=== PATIENT | male | born 1950 | race Caucasian/White ===

== ENCOUNTER 2016-07-21 11:09 | Inpatient (IN) | payer OTHER, MEDICARE ==
[~2016-07-21] VITALS: Ht 182.9 cm; Wt 123.8 kg
[~2016-07-21 11:09] MED LIST: HYDR-3583 PO; LISI-515 PO; LOVA40TA PO; MORP100T40 PO; PARO40TA2 PO
[2016-07-27] MEDS ORDERED: SODIUM CHLORID 0.9% 500 ML IV PRN (07:15)
[2016-07-27] MEDS ORDERED: METOPROLOL TARTRATE 25 MG TAB PO PRN (07:15)
[2016-07-27] MEDS ORDERED: CHLORHEXIDINE GLUCONATE 2 % 1 PACK (2 CLOTHS) TOPICAL PRN (07:15)
[2016-07-27] MEDS ORDERED: POVIDONE IODINE 5% (ANTISEPSIS KIT) 4 APPLICATIONS EACH NARE PRN (07:15)
[2016-07-27] MEDS ORDERED: INSULIN HUMAN REGULAR 1,000 UNITS/10 ML VIAL SQ PRN (07:15)
[2016-07-27] MEDS: LACTATED RINGER'S 1000 ML INJ 1,000 ML IV SCH (07:15)
[2016-07-27] MEDS ORDERED: SODIUM CHLOR 0.9% 250 ML INJ 250 ML ONE (07:30)
[2016-07-27] MEDS ORDERED: VANCOMYCIN HCL 1000 MG VIAL ONE (07:30)
[2016-07-27 07:38] VITALS: BP 159/71; PULSE 80; RESP 20; TEMP 98.5; O2SAT 94
[2016-07-27] MEDS ORDERED: fentaNYL CITRATE 250 MCG/5 ML AMP ONE (08:26)
[2016-07-27] MEDS ORDERED: HYDROmorphone HCL PF 2 MG/ML VIAL ONE (08:26)
[2016-07-27] MEDS ORDERED: BUPIVACAINE/EPINEPHRINE 0.5% PF 30 ML VIAL ONE (08:43)
[2016-07-27] MEDS ORDERED: THROMBIN (TOPICAL) 5,000 UNIT VIAL ONE (08:44)
[2016-07-27] MEDS ORDERED: GELFOAM SIZE 100 ONE (08:45)
[2016-07-27] MEDS: VANCOMYCIN HCL 1000 MG VIAL ONE ×2 (10:12→13:19)
[2016-07-27] MEDS ORDERED: LACTATED RINGER'S 1000 ML INJ 1,000 ML IV ONE (12:00)
[2016-07-27] MEDS ORDERED: PROPOFOL 200 MG/20 ML AMP IV ONE (12:00)
[2016-07-27] MEDS ORDERED: PHENYLEPH/NS 1000 MCG/10 ML SYR IV ONE (12:00)
[2016-07-27] MEDS ORDERED: SODIUM CHLOR 0.9% 250 ML INJ 250 ML IV ONE (12:00)
[2016-07-27] MEDS ORDERED: NORMOSOL R INJ 1,000 ML IV ONE (12:00)
[2016-07-27] MEDS ORDERED: PHENYLEPHRINE HCL 10 MG/ML VIAL IV ONE (12:00)
[2016-07-27] MEDS ORDERED: SODIUM CHLORID 0.9% 500 ML INJ 500 ML IV ONE (12:00)
[2016-07-27] MEDS ORDERED: ONDANSETRON HCL 4 MG/2 ML VIAL IV PUSH ONE (12:00)
[2016-07-27] MEDS ORDERED: KETOROLAC TROMETHAMINE 30 MG/ML (IVP) VIAL IV PUSH ONE (12:00)
--- NOTE | 2016-07-27 13:56 | PD.OP ---
DO Sunday Simeon MD Operative Report Date of Surgery: Jul 27, 2016 Preoperative Diagnosis: L3-4 and L4-5 degenerative disc disease with facet arthropathy and associated spinal listhesis/instability and scoliosis with spinal stenosis; intractable low back pain with neurogenic claudication. Postoperative Diagnosis: Same Procedure: Lumbar L3-4 and L4-5 transforaminal interbody fusion; L3, L4 and L5 decompressive laminectomies; L3-5 pedicle screw fixation; L3-4 and L4-5 interbody cage placement; microsurgical technique Anesthesia: Gen. endotracheal by Evin Cabral Surgeon: Lul Cuenca M.D. Barrel Handler(s): Sera Cooper Operation and Findings: Following initiation of general endotracheal anesthesia, the patient had a Montilla catheter placed along with sequential compression devices. A gram of vancomycin was administered intravenously and he was turned in a prone position on a Dominguez frame, on a Iván table, and all pressure points adequately padded. The lumbosacral region was then prepped with Chloraprep and sterilely draped with Ioban along the usual sterile draping. A midline skin incision was then made extending from the L3-L5 levels after infiltrating the skin with 0.5% Marcaine with epinephrine solution extending down through the fascia. The muscle fibers were split using avascular fatty plane and detached from the underlying facets, transverse process and lateral portion of lamina on the left side and a self-retaining retractor used for exposure. Intraoperative fluoroscopy was also used for level of confirmation along with microscope magnification for further dissection. There was significant facet and ligamentum flavum hypertrophy noted at the L3-4 and L4-5 levels. Left L3-4 and L4-5 facets resected with a drill bit along with the lamina and there was severe foraminal and spinal stenosis from hypertrophied ligamentum flavum and facet which were decompressed bilaterally through the unilateral approach. There was significant disc height collapse along with disc protrusion also leading to the foraminal stenosis along with associated spondylolisthesis and facet laxity. Epidural hemostasis was achieved with bipolar cautery and Gelfoam with thrombin. Subsequently entered into the disc space at the L3-4 and L4-5 levels with a #15 blade and chante were used for discectomy. I then placed PEEK cages packed with local autograft bone and more local autograft bone was packed adjacent to the cage in interspace for added interbody fusion at both levels. With placement of the cages, I was able to distract the interspace and opened up the foramen further bilaterally. Subsequently in order to facilitate the fusion and provide stabilization, pedicle screw fixation was undertaken using Tabor spine screws with entry points at the left L3-4-5 levels at the junction of the transverse process and facet. Subsequently using AP and lateral fluoroscopy tap and screw placement. The screws were then connected with a justina and locked in place with caps. The construct appeared very secure at this point. The area was then copiously irrigated with Vancomycin solution and powder. The retractors were removed and the bipolar cautery used for hemostasis. The muscle fascia was then approximated using 2-0 Vicryl interrupted stitches and then 3-0 Vicryl subcuticular stitches also placed in interrupted fashion. The final skin closure was completed with ander. A sterile dressing was then applied. The patient then turned in supine position, extubated and taken to recovery room. There were no intraoperative complications. All sponge and needle counts were correct at the end of procedure. Estimated blood loss about 300 ml. Lul Cuenca MD Jul 27, 2016 13:56
[2016-07-27] MEDS ORDERED: MAGNESIUM SULFATE INJ 2 GM in SODIUM CHLORIDE 0.9% INJ 100 ML IV PRN (14:00)
[2016-07-27] MEDS ORDERED: ACETAMINOPHEN 325 MG TAB PO PRN (14:00)
[2016-07-27] MEDS ORDERED: RESP: ALBUTEROL 2.5 MG/3 ML NEB (PRN) NEB (14:00)
[2016-07-27] MEDS ORDERED: diphenhydrAMINE HCL 25 MG CAP PO PRN (14:00)
[2016-07-27] MEDS ORDERED: POTASSIUM CHLOR 20 MEQ PREMIX 100 ML IV PRN (14:00)
[2016-07-27] MEDS ORDERED: MAGNESIUM HYDROXIDE SUSP 30 ML CUP PO PRN (14:00)
[2016-07-27] MEDS ORDERED: SODIUM CHLORIDE 0.9% FLUSH 10 ML FLUSH IV FLUSH PRN (14:00)
[2016-07-27] MEDS ORDERED: MENTHOL LOZENGE BUCCAL PRN (14:00)
[2016-07-27] MEDS ORDERED: ONDANSETRON HCL 4 MG/2 ML VIAL IV PRN (14:00)
[2016-07-27] MEDS ORDERED: CALCIUM GLUCONATE INJ 1 GM in SODIUM CHLORIDE 0.9% INJ 100 ML IV PRN (14:00)
[2016-07-27] MEDS ORDERED: NALOXONE HCL 0.4 MG/ML AMP IV PRN (14:00)
[2016-07-27] MEDS ORDERED: PROCHLORPERAZINE INJ 10 MG/2 ML VIAL IV PUSH PRN (14:00)
[2016-07-27] MEDS ORDERED: cloNIDine HCL 0.1 MG TAB PO PRN (14:00)
[2016-07-27] MEDS ORDERED: ALUMINUM/MAGNESIUM/SIMETH 30 ML CUP PO PRN (14:00)
[2016-07-27] MEDS ORDERED: *morphine SULFATE 8 MG/ML PERIprocedure ONLY ONE (14:27)
[2016-07-27 14:32] LABS: AUTOMATED NEUTROPHIL # 12.5 TH/MM3 (1.8-7.7); BASOPHIL % 0.2 % (0.0-2.0); EOSINOPHIL # 0.1 TH/MM3 (0-0.4); EOSINOPHIL % 0.4 % (0.0-4.0); HEMATOCRIT 32.6 % (39.0-51.0); HEMO FLAGS DIFF FINAL; LYMPH % 6.5 % (9.0-44.0); LYMPHOCYTE # 0.9 TH/MM3 (1.0-4.8); MEAN CELL VOLUME 84.7 FL (80.0-100.0); MEAN CORPUSCULAR HEMOGLOBIN 27.4 PG (27.0-34.0); MEAN CORPUSCULAR HGB CONC 32.4 % (32.0-36.0); MONO % 4.9 % (0.0-8.0); PLATELET COUNT 198 TH/MM3 (150-450); RED BLOOD COUNT 3.84 MIL/MM3 (4.50-5.90); RED CELL DISTRIBUTION WIDTH 14.3 % (11.6-17.2); WHITE BLOOD COUNT 14.2 TH/MM3 (4.0-11.0)
[2016-07-27 14:53] LABS: BICARBONATE 26.3 MEQ/L (21.0-32.0); POTASSIUM 4.8 MEQ/L (3.5-5.1)
[2016-07-27] MEDS ORDERED: NS + KCL 20 MEQ INJ 1,000 ML IV SCH (15:00)
[2016-07-27] MEDS: HYDROmorphone HCL PCA 6 MG/30 ML IV SCH ×3 (15:56→23:19)
[2016-07-27 16:34] LABS: CALCIUM-PROTEIN CORRECTED 8.9 MG/DL (8.5-10.1)
--- NOTE | 2016-07-27 17:56 | RADRPT ---
EXAM DATE/TIME: 07/27/2016 09:02 [facility] COMPARISON: No previous studies available for comparison. INDICATIONS : Lumbar spine L3-5 TLIF. OR. MEDICAL HISTORY : Hypertension. SURGICAL HISTORY : None. ENCOUNTER: Initial ACUITY: 1 day PAIN SCORE: Non-responsive. LOCATION: Lumbar L3-5 FINDINGS: The patient is status post transpedicular fixation from L3 to L5 on the left. Allograft is noted. CONCLUSION: Status post transpedicular fixation L3 to L5. Yan Perez MD FACR on July 27, 2016 at 17:52 Board Certified Radiologist. This report was verified electronically.
[2016-07-27] MEDS: MORPHINE SULFATE 100 MG CONTROLLED RELEASE TAB PO SCH (18:49)
[2016-07-27 18:58] VITALS: BP 152/67; PULSE 92; RESP 18; TEMP 99; O2SAT 91
[2016-07-27 20:00] VITALS: BP 183/74; PULSE 93; RESP 20; TEMP 95; O2SAT 95
[2016-07-27] MEDS: DOCUSATE SODIUM 100 MG CAP PO SCH (20:33)
[2016-07-27] MEDS: PRAVASTATIN SOD 40 MG TAB PO SCH (20:33)
[2016-07-27] MEDS: ACETAMINOPHEN/HYDROcodone 325 MG/10 MG TAB PO PRN (20:34)
[2016-07-27] MEDS: ZOLPIDEM TARTRATE 5 MG TAB PO PRN (22:10)
[2016-07-27] MEDS: SODIUM CHLORIDE 0.9% FLUSH 10 ML FLUSH IV FLUSH SCH (22:15)
[2016-07-28] VITALS: BP 144/59; PULSE 99; RESP 18; TEMP 99.8; O2SAT 92
[2016-07-28] MEDS: ACETAMINOPHEN/HYDROcodone 325 MG/10 MG TAB PO PRN ×6 (00:50→21:44)
[2016-07-28 04:00] VITALS: BP 144/72; PULSE 94; RESP 20; TEMP 101.1; O2SAT 94
[2016-07-28] MEDS: LACTATED RINGER'S 1000 ML INJ 1,000 ML IV SCH (07:15)
[2016-07-28 08:00] VITALS: BP 140/78; PULSE 85; RESP 18; TEMP 99.7; O2SAT 90
[2016-07-28] MEDS: PARoxetine HCL 20 MG TAB PO SCH (09:34)
[2016-07-28] MEDS: DOCUSATE SODIUM 100 MG CAP PO SCH ×2 (09:35→21:44)
[2016-07-28] MEDS: MORPHINE SULFATE 100 MG CONTROLLED RELEASE TAB PO SCH ×3 (09:35→17:38)
[2016-07-28] MEDS: LISINOPRIL 20 MG TAB PO SCH (09:36)
[2016-07-28] MEDS: HYDROmorphone HCL PCA 6 MG/30 ML IV SCH ×4 (11:34→23:05)
[2016-07-28] MEDS: PANTOPRAZOLE SODIUM 40 MG VIAL IVP SCH (11:37)
[2016-07-28] MEDS: POLYETHYLENE GLYCOL 17 GM PKG PO SCH (11:40)
[2016-07-28] MEDS: SODIUM CHLORIDE 0.9% FLUSH 10 ML FLUSH IV FLUSH SCH ×2 (11:41→21:44)
[2016-07-28 12:00] VITALS: BP 143/65; PULSE 96; RESP 21; TEMP 100; O2SAT 94
[2016-07-28] MEDS: PCA - TOTAL MG DILAUDID DELIVERED PER SHIFT OTHER SCH ×2 (13:17→21:41)
--- NOTE | 2016-07-28 13:19 | HHI.NSPN ---
(Lio Anguiano) History Chief Complaint: incisional and low back pain status post L3/L4 and L4/L5 TLIF (Lio Anguiano) Interval History 07/28/2016: Patient underwent an L3-L4 and L4-L5 trans-foraminal body fusion with cage and pedicle screw fixation on 07/27/2016. Patient is very happy with his results. He has incisional high and low back pain but states that his much better than preop. He denies any radiculopathy in his lower extremities. No paresthesias in the lower extremities. He is sitting up in bed and then putting his brace on. His IV was dislodged last night and his PICCOLOIST is on hold I had the patient states that his back pain is starting to increase again. He is requesting that we restart his PICCOLOIST. (Lio Anguiano) Review of Systems General: Negative for: fever, chills, insomnia Respiratory: Negative for: shortness of breath, cough, sputum Cardiovascular: Negative for: chest pain Gastrointestinal: Negative for: nausea, vomitting, diarrhea, constipation ( Lio Anguiano) Exam Results Vital Signs Date Time Temp Pulse Resp B/P Pulse Ox O2 Delivery O2 Flow Rate FiO2 07/28/16 12:00 100.0 96 21 143/65 94 07/27/16 17:00 Nasal Cannula 2 Intake and Output 07/27/16 07/27/16 07/28/16 08:00 16:00 00:00 Intake Total 2300 ml 670 ml Output Total 620 ml 450 ml Balance 1680 ml 220 ml (Lio Anguiano) Physical Examination Respiratory: Clear to auscultation bilaterally. Heart: normal sinus rhythm normal S1 and S2 Abdomen: soft nontender positive bowel sounds Skin: regrows no cyanosis or erythema incision is clean and dry new bandage was applied. Muscle: He has 5 out of 5 strength in the lower extremities. He is sitting up on the edge of the bed implies the brace on himself. Neurologic: Patient awake and alert speech is slow, and she has good sensation in the lower extremities is intact. (Lio Anguiano) Lab, Micro, Other Results Laboratory Tests Test 07/27/16 14:28 White Blood Count 14.2 TH/MM3 Red Blood Count 3.84 MIL/MM3 Hemoglobin 10.6 GM/DL Hematocrit 32.6 % Mean Corpuscular Volume 84.7 FL Mean Corpuscular Hemoglobin 27.4 PG Mean Corpuscular Hemoglobin 32.4 % Concent Red Cell Distribution Width 14.3 % Platelet Count 198 TH/MM3 Mean Platelet Volume 8.3 FL Neutrophils (%) (Auto) 88.0 % Lymphocytes (%) (Auto) 6.5 % Monocytes (%) (Auto) 4.9 % Eosinophils (%) (Auto) 0.4 % Basophils (%) (Auto) 0.2 % Neutrophils # (Auto) 12.5 TH/MM3 Lymphocytes # (Auto) 0.9 TH/MM3 Monocytes # (Auto) 0.7 TH/MM3 Eosinophils # (Auto) 0.1 TH/MM3 Basophils # (Auto) 0.0 TH/MM3 CBC Comment DIFF FINAL Differential Comment Sodium Level 142 MEQ/L Potassium Level 4.8 MEQ/L Chloride Level 108 MEQ/L Carbon Dioxide Level 26.3 MEQ/L Anion Gap 8 MEQ/L Blood Urea Nitrogen 12 MG/DL Creatinine 1.31 MG/DL Estimat Glomerular Filtration 55 ML/MIN Rate Random Glucose 153 MG/DL Calcium Level 8.3 MG/DL Protein Corrected Calcium 8.9 MG/DL Total Protein 6.2 GM/DL 07/27/16 07/27/16 07/28/16 15:00 23:00 07:00 Intake Total 2300 ml 670 ml Output Total 620 ml 450 ml 1700 ml Balance 1680 ml 220 ml -1700 ml Intake Oral 120 ml IV Total 550 ml Other 2300 ml Output Urine Total 450 ml 1700 ml Estimated Blood Loss 300 ml Other 320 ml # Voids 2 (Lio Anguiano) Medical Decision Making Impression and Plan A: 66-year-old male status post L3/L4 and L4/L5 trans-foraminal interbody fusion with cage and pedicle screw fixation. Postop day 1. P: Continue with Dilaudid PICCOLOIST Continue with physical therapy Montilla catheter has been removed and patient is voiding well. Encouraged incentive spirometry. (Lio Anguiano) Attending Statement The exam, history, and the medical decision-making described in the above note were completed with the assistance of the mid-level provider. I reviewed and agree with the findings presented. I attest that I had a [id number] encounter with the patient on the same day, and personally performed and documented my assessment and findings in the medical record. (Lul Cuenca MD) Lio Anguiano Jul 28, 2016 13:19 Lul Cuenca MD Jul 28, 2016 13:52
[2016-07-28 16:00] VITALS: BP 154/68; PULSE 107; RESP 20; TEMP 100.1; O2SAT 96
[2016-07-28 20:00] VITALS: BP 165/70; PULSE 105; RESP 20; TEMP 99.1; O2SAT 94
[2016-07-28] MEDS: PRAVASTATIN SOD 40 MG TAB PO SCH (21:44)
[2016-07-28] MEDS: ZOLPIDEM TARTRATE 5 MG TAB PO PRN (21:44)
[2016-07-28] MEDS: CYCLOBENZAPRINE HCL 10 MG TAB PO PRN (21:45)
[2016-07-29] VITALS: BP 139/88; PULSE 109; RESP 18; TEMP 99.6; O2SAT 93
[2016-07-29] MEDS: ACETAMINOPHEN/HYDROcodone 325 MG/10 MG TAB PO PRN ×5 (02:20→21:53)
[2016-07-29 05:33] VITALS: BP 137/73; PULSE 101; RESP 16; TEMP 98.8; O2SAT 98
[2016-07-29] MEDS: PCA - TOTAL MG DILAUDID DELIVERED PER SHIFT OTHER SCH (06:00)
[2016-07-29] MEDS: HYDROmorphone HCL PCA 6 MG/30 ML IV SCH ×2 (06:22→08:22)
[2016-07-29] MEDS: LACTATED RINGER'S 1000 ML INJ 1,000 ML IV SCH (07:15)
[2016-07-29 08:00] VITALS: BP 121/58; PULSE 99; RESP 20; TEMP 99.2; O2SAT 90
[2016-07-29] MEDS: DOCUSATE SODIUM 100 MG CAP PO SCH ×2 (08:23→21:52)
[2016-07-29] MEDS: POLYETHYLENE GLYCOL 17 GM PKG PO SCH (08:24)
[2016-07-29] MEDS: MORPHINE SULFATE 100 MG CONTROLLED RELEASE TAB PO SCH ×3 (08:24→18:12)
[2016-07-29] MEDS: LISINOPRIL 20 MG TAB PO SCH (08:26)
[2016-07-29] MEDS: PARoxetine HCL 20 MG TAB PO SCH (08:27)
[2016-07-29] MEDS: PANTOPRAZOLE SODIUM 40 MG VIAL IVP SCH (08:27)
[2016-07-29] MEDS: SODIUM CHLORIDE 0.9% FLUSH 10 ML FLUSH IV FLUSH SCH ×2 (08:30→21:53)
--- NOTE | 2016-07-29 09:04 | HHI.NSPN ---
(Lio Anguiano) History Chief Complaint: incisional and low back pain status post L3/L4 and L4/L5 TLIF (Lio Anguiano) Interval History 07/28/2016: Patient underwent an L3-L4 and L4-L5 trans-foraminal body fusion with cage and pedicle screw fixation on 07/27/2016. Patient is very happy with his results. He has incisional high and low back pain but states that his much better than preop. He denies any radiculopathy in his lower extremities. No paresthesias in the lower extremities. He is sitting up in bed and then putting his brace on. His IV was dislodged last night and his ECONOMICS LECTURER is on hold I had the patient states that his back pain is starting to increase again. He is requesting that we restart his ECONOMICS LECTURER. 07/29/16: Pt states pain controlled. He denies any radiculopathy or paresthesias in LEs. He complains of bilateral hip discomfort and states he has a history of bursitis. He is sitting up with brace on. (Lio Anguiano) Review of Systems General: Negative for: fever, chills, insomnia Respiratory: Negative for: shortness of breath, cough, sputum Cardiovascular: Negative for: chest pain Gastrointestinal: Negative for: nausea, vomitting, diarrhea, constipation ( Lio Anguiano) Exam Results Vital Signs Date Time Temp Pulse Resp B/P Pulse Ox O2 Delivery O2 Flow Rate FiO2 07/29/16 08:00 99.2 99 20 121/58 90 07/27/16 17:00 Nasal Cannula 2 Intake and Output 07/28/16 07/28/16 07/29/16 08:00 16:00 00:00 Intake Total 611 ml 1238 ml Output Total 1700 ml 800 ml Balance -1700 ml 611 ml 438 ml (Lio Anguiano) Physical Examination Respiratory: Clear to auscultation bilaterally. Heart: normal sinus rhythm normal S1 and S2 Abdomen: soft nontender positive bowel sounds Skin: regrows no cyanosis or erythema incision is clean and dry. Muscle: He has 5 out of 5 strength in the lower extremities. He is sitting up in chair with brace on. Neurologic: Patient awake and alert, speech is clear and appropriate. Follows commands well. (Lio Anguiano) Lab, Micro, Other Results 07/28/16 07/28/16 07/29/16 15:00 23:00 07:00 Intake Total 600 ml 1249 ml Output Total 800 ml Balance 600 ml 449 ml Intake Oral 600 ml IV Total 1238 ml Other 11 ml Output Urine Total 800 ml # Bowel Movements 0 (Lio Anguiano) Medical Decision Making Impression and Plan A: 66-year-old male status post L3/L4 and L4/L5 trans-foraminal interbody fusion with cage and pedicle screw fixation. Postop day 2. P: Continue with physical therapy Encouraged incentive spirometry. (Lio Anguiano) Attending Statement The exam, history, and the medical decision-making described in the above note were completed with the assistance of the mid-level provider. I reviewed and agree with the findings presented. I attest that I had a [id number] encounter with the patient on the same day, and personally performed and documented my assessment and findings in the medical record. Overall he is doing well and ambulating. We'll discontinue ECONOMICS LECTURER anticipated discharge home tomorrow if stable. Discussed with at bedside. (Lul Cuenca MD) Lio Anguiano Jul 29, 2016 09:04 Lul Cuenca MD Jul 29, 2016 13:40
[2016-07-29] MEDS ORDERED: CYCL1TAB29 PO (09:52)
[2016-07-29] MEDS ORDERED: HYDR-3583 PO (09:52)
[2016-07-29 12:02] VITALS: BP 114/80; PULSE 118; RESP 21; TEMP 100.1; O2SAT 95
[2016-07-29] MEDS: HYDROmorphone HCL PF 1 MG/ML VIAL IV PUSH PRN ×2 (12:26→21:52)
[2016-07-29] MEDS: CYCLOBENZAPRINE HCL 10 MG TAB PO PRN ×2 (14:10→21:53)
[2016-07-29 16:00] VITALS: BP 142/72; PULSE 111; RESP 22; TEMP 100.8; O2SAT 94
[2016-07-29 20:00] VITALS: BP 152/67; PULSE 107; RESP 20; TEMP 99.4; O2SAT 93
[2016-07-29] MEDS: PRAVASTATIN SOD 40 MG TAB PO SCH (21:52)
[2016-07-29] MEDS: ZOLPIDEM TARTRATE 5 MG TAB PO PRN (21:53)
[2016-07-30] VITALS: BP 161/86; PULSE 106; RESP 20; TEMP 100.6; O2SAT 93
[2016-07-30] MEDS: ACETAMINOPHEN/HYDROcodone 325 MG/10 MG TAB PO PRN ×2 (02:31→06:54)
[2016-07-30 04:00] VITALS: BP 152/72; PULSE 107; RESP 20; TEMP 98.9; O2SAT 93
[2016-07-30] MEDS: LACTATED RINGER'S 1000 ML INJ 1,000 ML IV SCH (07:15)
[2016-07-30 08:00] VITALS: BP 146/76; PULSE 104; RESP 20; TEMP 98.8; O2SAT 95
[2016-07-30] MEDS: DOCUSATE SODIUM 100 MG CAP PO SCH (08:37)
[2016-07-30] MEDS: MORPHINE SULFATE 100 MG CONTROLLED RELEASE TAB PO SCH (08:37)
[2016-07-30] MEDS: PANTOPRAZOLE SODIUM 40 MG VIAL IVP SCH (08:38)
[2016-07-30] MEDS: POLYETHYLENE GLYCOL 17 GM PKG PO SCH (08:38)
[2016-07-30] MEDS: PARoxetine HCL 20 MG TAB PO SCH (08:38)
[2016-07-30] MEDS: SODIUM CHLORIDE 0.9% FLUSH 10 ML FLUSH IV FLUSH SCH (08:38)
[2016-07-30] MEDS: LISINOPRIL 20 MG TAB PO SCH (08:38)
[2016-08-03] MEDS ORDERED: CEPH-460 PO (13:14)
--- NOTE | 2016-09-16 16:16 | HHI.DS ---
Discharge Summary Admission Date Jul 27, 2016 at 06:04 Discharge Date: Jul 30, 2016 Admitting Diagnosis (1) Chronic low back pain Diagnosis: Principal ICD Code: 724.2 (2) Low back pain Diagnosis: Principal ICD Code: M54.5 (3) Facet arthropathy, lumbar Diagnosis: Principal ICD Code: M12.88 (4) Lumbar stenosis with neurogenic claudication Diagnosis: Principal ICD Code: M48.06 (5) Lumbar degenerative disc disease Diagnosis: Principal ICD Code: M51.36 (6) Scoliosis of lumbar spine Diagnosis: Principal ICD Code: M41.9 (7) Spondylolisthesis of lumbar region Diagnosis: Principal ICD Code: M43.16 Procedures L3, L4, L5 decompressive laminectomy with L3/L4 and L4/L5 transforaminal interbody fusion with cage and pedicle screw fixation by Lul Cuenca MD on 07/27. Brief History Is a 66-year-old male who presented to our office for an evaluation of low back pain he has had for 15 years. He has been to pain management for many years and had increasing doses of pain medication. He is currently on morphine sulfate 100 mg 3 times a day and hydrocodone 10 mg when necessary breakthrough pain which helps some. He states he continues to have low back pain that is not positional and is chronic. He uses a heating pad which helps. He states the most pain he is in the in the low back but does have some mid back and neck pain. He states the pain doesn't radiate into the lower extremity is. He denies any paresthesias in the lower extremities other than intimately on the bottom of his feet for the past year. He denies any bowel or bladder incontinence. He denies any weakness or stiffness. He has been told over 15 years ago that he is not a surgical candidate given the extensive degeneration present. He has been to PT in the past which didn't help. He's had an epidural spinal stimulator placed which was removed since he cannot tolerate the side effects. Imaging MRI of the lumbar spine from June 10, 2016 reveals extensive scoliosis in the lumbar spine which is partially visualized on the AP view. He does have a severe L4/L5 spinal stenosis from facet and ligamentum flavum hypertrophy. There is severe L3/L4 disc degeneration with a grade 1 anterolisthesis and a grade 1 L2-L3 retrolisthesis. Hospital Course Patient underwent the above-noted procedure performed by Dr. Cuenca. There was no intraoperative complications. Postoperatively patient was admitted to the medical/surgical floor. Patient's pain was controlled with a HOUSE PRINCIPAL. PT was consult in his activity status was increased. Patient's pain was controlled and his HOUSE PRINCIPAL was discontinued. Patient's activity was increased and he was discharged home in stable condition. Pt Condition on Discharge: Stable Discharge Disposition: Discharge Home Discharge Instructions DIET: Follow Instructions for: As Tolerated, No Restrictions ACTIVITIES You can perform: Shower Only-No Bath Activities to Avoid: Lifting/Bending, Prolonged Standing, Strenuous Activity, Bathing, Driving Follow up Referrals: Appointment for Follow Up - 1 Week lumbar incision staple removal Changed Medications: Hydrocodone-Acetaminophen (Hydrocodone-Acetaminophen) 10-325 mg Tab 1 TAB PO Q4HR PRN PAIN #60 Ref 0 TAB (Changed from: Q6H) Continued Medications: Lisinopril (Lisinopril) 20 Mg Tab 20 MG PO DAILY #30 Ref 0 TAB Lovastatin (Lovastatin) 40 Mg Tab 40 MG PO HS Cholesterol Management #30 Ref 0 TAB Morphine Sulfate CR (Morphine Sulfate CR) 100 Mg Tab 1 TAB PO TID Paroxetine (Paroxetine) 40 Mg Tab 40 MG PO DAILY #30 Ref 0 TAB Lio Anguiano September 16, 2016 16:16
== END 2016-07-30 10:35 | disposition home or self-care (01) | DRG 460 ==
LOC: HSDI 07-27 06:04 → N05A 07-27 17:53
PROVIDERS: ADMIT Neurological Surgery; ATTEND Neurological Surgery
PROC: 0SG107J Fusion of 2 or more Lumbar Vertebral Joints with Autologous Tissue Substitute, Posterior Approach, Anterior Column, Open Approach (ICD-10-PCS; 2016-07-27)
PROC: 0ST20ZZ Resection of Lumbar Vertebral Disc, Open Approach (ICD-10-PCS; 2016-07-27)
PROC: 01NB0ZZ Release Lumbar Nerve, Open Approach (ICD-10-PCS; 2016-07-27)
PROC: 0SG10AJ Fusion of 2 or more Lumbar Vertebral Joints with Interbody Fusion Device, Posterior Approach, Anterior Column, Open Approach (ICD-10-PCS; principal; 2016-07-27 08:40)
DX: M51.36 Other intervertebral disc degeneration, lumbar region (principal); M41.9 Scoliosis, unspecified; I10 Essential (primary) hypertension; M47.816 Spondylosis without myelopathy or radiculopathy, lumbar region; M43.16 Spondylolisthesis, lumbar region; E78.5 Hyperlipidemia, unspecified; E66.9 Obesity, unspecified; Z68.37 Body mass index [BMI] 37.0-37.9, adult
CPT/HCPCS: 36415; 72100; 76000; 76937; 80048; 80053; 81001; 84155; 85025; 85610; 85730; 86850; 86900; 86901; 86920; 94150; C1713; C9113; J0690; J1170; J1885; J2270; J2370; J2405; J3010; J3370; J3480; J7040; J7050; J7120; L0484

== ENCOUNTER → 2016-07-25 | Outpatient (CLI) | payer OTHER ==
[~2016-07-25] MED LIST changes: +AMBI5TAB PO; +ASPI1TAB91 PO; +Aspirin Chew PO; +CEPH-460 PO; +CYCL1TAB29 PO; +LACTCHW3 CHEW; +LEVA500T PO; +METO25TA3 PO; +STOO100C PO
[2016-07-25 13:25] LABS: AUTOMATED NEUTROPHIL # 9.3 TH/MM3 (1.8-7.7); BASOPHIL % 0.3 % (0.0-2.0); EOSINOPHIL # 0.2 TH/MM3 (0-0.4); EOSINOPHIL % 1.4 % (0.0-4.0); HEMATOCRIT 35.6 % (39.0-51.0); HEMO FLAGS DIFF FINAL; MEAN CELL VOLUME 84.1 FL (80.0-100.0); MEAN CORPUSCULAR HEMOGLOBIN 27.5 PG (27.0-34.0); MEAN CORPUSCULAR HGB CONC 32.6 % (32.0-36.0); MONO % 6.4 % (0.0-8.0); NEUT % 75.9 % (16.0-70.0); PLATELET COUNT 217 TH/MM3 (150-450); RED BLOOD COUNT 4.23 MIL/MM3 (4.50-5.90); RED CELL DISTRIBUTION WIDTH 14.3 % (11.6-17.2); WHITE BLOOD COUNT 12.3 TH/MM3 (4.0-11.0)
[2016-07-25 13:27] LABS: BLOOD, URINE NEG (NEG); COMMENT (UR) CULT NOT INDICATED; CULTURE IF INDICATED CULT NOT INDICATED; GLUCOSE,URINE 70 mg/dL (NEG); KETONE, URINE NEG (NEG); MUCUS URINE FEW /lpf (OCC); NITRITE,URINE NEG (NEG); PH, URINE 5.5 (5.0-8.5); URINE COLOR YELLOW (YELLW/STRAW)
[2016-07-25 13:38] LABS: APTT (PATIENT) 25.9 SEC (24.3-30.1); INTERNATIONAL NORMALIZED RATIO 0.9 RATIO; PROTHROMBIN TIME - PATIENT 10.4 SEC (9.8-11.6)
[2016-07-25 13:50] LABS: ALT (GPT) 37 U/L (12-78); ANION GAP 5 MEQ/L (5-15); AST (GOT) 26 U/L (15-37); BICARBONATE 32.8 MEQ/L (21.0-32.0); BLOOD UREA NITROGEN 12 MG/DL (7-18); CHLORIDE 106 MEQ/L (98-107); GLOMERULAR FILTRATION RATE 77 ML/MIN (>89); GLUCOSE,FASTING 108 MG/DL (74-99); POTASSIUM 4.7 MEQ/L (3.5-5.1); SODIUM (NA) 144 MEQ/L (136-145)
[2016-07-25 13:52] LABS: ALKALINE PHOSPHATASE 80 U/L (45-117); TOTAL BILIRUBIN ADULT 0.7 MG/DL (0.2-1.0)
== END ==
LOC: CPRE 11:59
PROVIDERS: ATTEND Neurological Surgery
DX: Z01.812 Encounter for preprocedural laboratory examination (principal); M43.16 Spondylolisthesis, lumbar region; M48.06 Spinal stenosis, lumbar region
CPT/HCPCS: 36415; 80053; 81001; 85025; 85610; 85730; 86850; 86900; 86901; 86920

== ENCOUNTER 2016-08-18 08:40 | Inpatient (IN) | payer OTHER, MEDICARE ==
[~2016-08-18] VITALS: Ht 182.9 cm; Wt 122.8 kg
[2016-08-18] VITALS (12 sets, daily range): BP systolic 70–163; BP diastolic 52–71; PULSE 78–144; RESP 16–22; TEMP 98.5–103; O2SAT 88–95
[~2016-08-18 08:40] MED LIST changes: -AMBI5TAB PO; -ASPI1TAB91 PO; -Aspirin Chew PO; -LACTCHW3 CHEW; -LEVA500T PO; -METO25TA3 PO; -STOO100C PO
[2016-08-18] MEDS ORDERED: SODIUM CHLOR 0.9% 1000 ML INJ 600 ML IV ONE (09:01)
[2016-08-18] MEDS ORDERED: SODIUM CHLOR 0.9% 1000 ML INJ 1,000 ML IV ONE ×4 (09:01→16:30)
--- NOTE | 2016-08-18 09:12 | PD ---
HPI Chief Complaint: Altered Mental Status Time Seen by Provider: 08:49 Travel History International Travel<30 days: No Contact w/Intl Traveler<30days: No Traveled to known affect area: No History of Present Illness HPI The patient is a 66-year-old male who presents to the emergency department for fever and confusion. The states the patient had surgery on July 27, 2016 by the neurosurgeon, Dr. Dumas, on the lower lumbar region. The patient was evaluated in the office after surgery, was noted to have a small amount of postoperative bleeding and possible infection, was placed on Keflex. The states the patient finished the Keflex and was reevaluated by Dr. Cuenca, there is no further infection according to the . The patient was doing well last night, ate dinner went to bed without difficulty. However, she awakened this morning the patient was vomiting. The states that the patient is confused, appears to have chills and sweats, and had a fever at home. Upon arrival the patient is somewhat confused, he is oriented to name but not place, month, or year. He denies any current physical complaints including headache, chest pain, shortness breath, cough, abdominal pain, dysuria , or low back pain. The patient's primary physician is Dr. Usama Cotto. [facility] Past Medical History Arthritis: Yes Autoimmune Disease: No Anxiety: No Depression: Yes Heart Rhythm Problems: No Cancer: No Cardiovascular Problems: Yes (htn) High Cholesterol: Yes Chest Pain: No Congestive Heart Failure: No Cerebrovascular Accident: No Diabetes: No Diminished Hearing: No Endocrine: No Gastrointestinal Disorders: No Genitourinary: No Hepatitis: No Hiatal Hernia: No Hypertension: Yes Immune Disorder: No Kidney Stones: No Neurologic: Yes Psychiatric: No Reproductive: No Respiratory: No Renal Failure: No Sickle Cell Disease: No Thyroid Disease: No Ulcer: No Past Surgical History Abdominal Surgery: Yes (INGUINAL ) AICD: No Cardiac Surgery: No Ear Surgery: No Endocrine Surgery: No Eye Surgery: No Genitourinary Surgery: Yes (VASECTOMY) Gynecologic Surgery: No Joint Replacement: No Oral Surgery: No Pacemaker: No Thoracic Surgery: Yes (2017) Other Surgery: Yes (I&D TO R INDEX FINGER) Social History Alcohol Use: No Tobacco Use: No Substance Use: No Allergies-Medications (Allergen,Severity, Reaction): Coded Allergies: Mushroom (Unverified Allergy, Severe, Shortness of Breath, 08/18/16) *MDRO Multi-Drug Resistant Organism (Verified Adverse Reaction, Unknown, ) MRSA (hand wound) 05/2013 Reported Meds & Prescriptions Reported Meds & Active Scripts Active Hydrocodone-Acetaminophen 10-325 mg Tab 1 Tab PO Q4HR PRN Reported Paroxetine (Paroxetine HCl) 40 Mg Tab 40 Mg PO DAILY Lovastatin 40 Mg Tab 40 Mg PO HS Lisinopril 20 Mg Tab 20 Mg PO DAILY Morphine Sulfate CR (Morphine Sulfate) 100 Mg Tab 1 Tab PO TID Review of Systems ROS Limitations: Other: (history obtained from ) Except as stated in HPI: all other systems reviewed are Neg General / Constitutional: Positive: Fever HENT: No: Headaches, Neck Pain Cardiovascular: No: Chest Pain or Discomfort Respiratory: No: Shortness of Breath Gastrointestinal: Positive: Vomiting, No: Abdominal Pain Genitourinary: No: Dysuria Musculoskeletal: No: Pain Neurologic: Positive: Change in Mentation Physical Exam Narrative GENERAL: Awake, confused, 66-year-old male who appears his stated age and is diaphoretic. SKIN: Focused skin assessment reveals diaphoresis.. HEAD: Atraumatic. Normocephalic. EYES: Pupils equal and round. No scleral icterus. No injection or drainage. ENT: No nasal bleeding or discharge. Slightly dry mucous membranes. NECK: Trachea midline. No JVD. No meningeal signs. CARDIOVASCULAR: Regular, tachycardic with a heart rate of 140. RESPIRATORY: No accessory muscle use. Diminished breath sounds in the right base. GASTROINTESTINAL: Abdomen soft, obese, visible diastases with sitting upright. Back: Midline lumbar surgical wound with no obvious drainage or erythema. MUSCULOSKELETAL: No obvious deformities. No clubbing. No cyanosis. No edema. NEUROLOGICAL: Awake and alert. No obvious cranial nerve deficits. Motor grossly within normal limits. Normal speech. Patient is oriented to person, but not place, month, or year. PSYCHIATRIC: Appropriate mood and affect; insight and judgment normal. Data Data Last Documented VS Vital Signs Date Time Temp Pulse Resp B/P Pulse Ox O2 Delivery O2 Flow Rate FiO2 08/18/16 09:58 125 08/18/16 09:04 93 Nasal Cannula 4 08/18/16 08:46 103.0 22 163/71 Orders Electrocardiogram (08/18/16 08:54) Electrocardiogram (08/18/16 09:01) Complete Blood Count With Diff (08/18/16 09:) Comprehensive Metabolic Panel (08/18/16 09:) Prothrombin Time / Inr (Pt) (08/18/16 09:) Act Partial Throm Time (Ptt) (08/18/16 09:01) Lactic Acid Sepsis Protocol (08/18/16 09:) Magnesium (Mg) (08/18/16 09:) Lipase (08/18/16:) Ckmb (Isoenzyme) Profile (08/18/16:) Troponin I (08/18/16:) Urinalysis - C+S If Indicated (08/18/16:) Influenzae A/B Antigen (08/18/16:) Blood Culture (08/18/16 09:) Chest, Single Ap (08/18/16 09:) Blood Gas Venous (Vbg) (08/18/16 09:) Blood Glucose (08/18/16 09:) Ecg Monitoring (08/18/16 09:) Iv Access Insert/Monitor (08/18/16 09:) Oximetry (08/18/16 09:) Oxygen Administration (08/18/16 09:) Acetaminophen (Tylenol) (08/18/16 09:15) Sodium Chlor 0.9% 1000 Ml Inj (Ns 1000 M (08/18/16 09:01) Sodium Chlor 0.9% 1000 Ml Inj (Ns 1000 M (08/18/16 09:01) Sodium Chlor 0.9% 1000 Ml Inj (Ns 1000 M (08/18/16 09:01) Sodium Chlor 0.9% 1000 Ml Inj (Ns 1000 M (08/18/16 09:01) Cefepime Inj (Maxipime Inj) (08/18/16 09:15) CKMB (08/18/16 09:00) CKMB% (08/18/16 09:00) Labs Laboratory Tests Test 08/18/16 08/18/16 08/18/16 09:00 09:25 09:30 White Blood Count 23.8 TH/MM3 Red Blood Count 3.99 MIL/MM3 Hemoglobin 10.5 GM/DL Hematocrit 32.8 % Mean Corpuscular Volume 82.2 FL Mean Corpuscular Hemoglobin 26.5 PG Mean Corpuscular Hemoglobin 32.2 % Concent Red Cell Distribution Width 14.2 % Platelet Count 369 TH/MM3 Mean Platelet Volume 8.5 FL Neutrophils (%) (Auto) 93.5 % Lymphocytes (%) (Auto) 1.9 % Monocytes (%) (Auto) 4.4 % Eosinophils (%) (Auto) 0.1 % Basophils (%) (Auto) 0.1 % Neutrophils # (Auto) 22.2 TH/MM3 Lymphocytes # (Auto) 0.5 TH/MM3 Monocytes # (Auto) 1.1 TH/MM3 Eosinophils # (Auto) 0.0 TH/MM3 Basophils # (Auto) 0.0 TH/MM3 CBC Comment DIFF FINAL Differential Comment Prothrombin Time 11.5 SEC Prothromb Time International 1.0 RATIO Ratio Activated Partial 26.4 SEC Thromboplast Time Sodium Level 136 MEQ/L Potassium Level 4.5 MEQ/L Chloride Level 100 MEQ/L Carbon Dioxide Level 27.3 MEQ/L Anion Gap 9 MEQ/L Blood Urea Nitrogen 18 MG/DL Creatinine 1.29 MG/DL Estimat Glomerular Filtration 56 ML/MIN Rate Random Glucose 180 MG/DL Lactic Acid Level 3.0 mmol/L Calcium Level 10.3 MG/DL Magnesium Level 1.8 MG/DL Total Bilirubin 1.0 MG/DL Aspartate Amino Transf 22 U/L (AST/SGOT) Alanine Aminotransferase 26 U/L (ALT/SGPT) Alkaline Phosphatase 123 U/L Total Creatine Kinase 105 U/L Creatine Kinase MB 10.4 NG/ML Troponin I 0.81 NG/ML Total Protein 7.5 GM/DL Albumin 3.5 GM/DL Lipase 70 U/L Blood Gas Puncture Site IV Blood Gas Patient Temperature 98.6 Venous Blood pH 7.34 Venous Blood Partial Pressure 49 mmHg CO2 Venous Blood Partial Pressure 60 mmHg O2 Venous Blood HCO3 26 mmol/L Venous Blood Oxygen Saturation 88 % Venous Blood Oxygen Content 11.7 Vol % Venous Blood Base Excess 0.7 mmol/L Oxygen Delivery Device NASAL CANNULA Blood Gas Liter Flow 3 L/M Blood Gas Ventilator Setting Urine Color YELLOW Urine Turbidity CLEAR Urine pH 5.0 Urine Specific Herman 1.021 Urine Protein TRACE mg/dL Urine Glucose (UA) 150 mg/dL Urine Ketones NEG mg/dL Urine Occult Blood TRACE Urine Nitrite NEG Urine Bilirubin NEG Urine Urobilinogen LESS THAN 2.0 MG/DL Urine Leukocyte Esterase NEG Urine WBC LESS THAN 1 /hpf Urine Mucus FEW /lpf Microscopic Urinalysis Comment CULT NOT INDICATED MDM Medical Decision Making Medical Screen Exam Complete: Yes Emergency Medical Condition: Yes Medical Record Reviewed: Yes Interpretation(s) Last Impressions Chest X-Ray 08/18/16 09 Signed Impressions: Service Date/Time: July 09:07 - CONCLUSION: Mild patchy airspace opacity, likely consolidation, in the mid and lower lung zone on the right. This was present to some degree previously but appears increased. Infectious or inflammatory processes should be considered. Prosper Velasquez MD Laboratory Tests Test 08/18/16 08/18/16 08/18/16 09:00 09:25 09:30 White Blood Count 23.8 TH/MM3 Red Blood Count 3.99 MIL/MM3 Hemoglobin 10.5 GM/DL Hematocrit 32.8 % Mean Corpuscular Volume 82.2 FL Mean Corpuscular Hemoglobin 26.5 PG Mean Corpuscular Hemoglobin 32.2 % Concent Red Cell Distribution Width 14.2 % Platelet Count 369 TH/MM3 Mean Platelet Volume 8.5 FL Neutrophils (%) (Auto) 93.5 % Lymphocytes (%) (Auto) 1.9 % Monocytes (%) (Auto) 4.4 % Eosinophils (%) (Auto) 0.1 % Basophils (%) (Auto) 0.1 % Neutrophils # (Auto) 22.2 TH/MM3 Lymphocytes # (Auto) 0.5 TH/MM3 Monocytes # (Auto) 1.1 TH/MM3 Eosinophils # (Auto) 0.0 TH/MM3 Basophils # (Auto) 0.0 TH/MM3 CBC Comment DIFF FINAL Differential Comment Prothrombin Time 11.5 SEC Prothromb Time International 1.0 RATIO Ratio Activated Partial 26.4 SEC Thromboplast Time Sodium Level 136 MEQ/L Potassium Level 4.5 MEQ/L Chloride Level 100 MEQ/L Carbon Dioxide Level 27.3 MEQ/L Anion Gap 9 MEQ/L Blood Urea Nitrogen 18 MG/DL Creatinine 1.29 MG/DL Estimat Glomerular Filtration 56 ML/MIN Rate Random Glucose 180 MG/DL Lactic Acid Level 3.0 mmol/L Calcium Level 10.3 MG/DL Magnesium Level 1.8 MG/DL Total Bilirubin 1.0 MG/DL Aspartate Amino Transf 22 U/L (AST/SGOT) Alanine Aminotransferase 26 U/L (ALT/SGPT) Alkaline Phosphatase 123 U/L Total Creatine Kinase 105 U/L Creatine Kinase MB 10.4 NG/ML Troponin I 0.81 NG/ML Total Protein 7.5 GM/DL Albumin 3.5 GM/DL Lipase 70 U/L Blood Gas Puncture Site IV Blood Gas Patient Temperature 98.6 Venous Blood pH 7.34 Venous Blood Partial Pressure 49 mmHg CO2 Venous Blood Partial Pressure 60 mmHg O2 Venous Blood HCO3 26 mmol/L Venous Blood Oxygen Saturation 88 % Venous Blood Oxygen Content 11.7 Vol % Venous Blood Base Excess 0.7 mmol/L Oxygen Delivery Device NASAL CANNULA Blood Gas Liter Flow 3 L/M Blood Gas Ventilator Setting Urine Color YELLOW Urine Turbidity CLEAR Urine pH 5.0 Urine Specific Herman 1.021 Urine Protein TRACE mg/dL Urine Glucose (UA) 150 mg/dL Urine Ketones NEG mg/dL Urine Occult Blood TRACE Urine Nitrite NEG Urine Bilirubin NEG Urine Urobilinogen LESS THAN 2.0 MG/DL Urine Leukocyte Esterase NEG Urine WBC LESS THAN 1 /hpf Urine Mucus FEW /lpf Microscopic Urinalysis Comment CULT NOT INDICATED Date/Time Procedure Status Source Growth 08/18/16 09:00 Aerobic Blood Culture Received Blood Peripheral Pending 08/18/16 09:00 Anaerobic Blood Culture Received Blood Peripheral Pending 08/18/16 09:05 Aerobic Blood Culture Received Blood Peripheral Pending 08/18/16 09:05 Anaerobic Blood Culture Received Blood Peripheral Pending 08/18/16 09:30 Influenza Types A,B Antigen (ZA) - Final Complete Nasal Aspirate NEGATIVE FOR FLU A AND B ANTIGEN.... Differential Diagnosis Differential diagnosis includes influenza, pneumonia, complicated UTI, epidural abscess, postoperative infection, sepsis, meningitis. Narrative Course IV was established, labs are drawn and sent, and the patient was placed on cardiac telemetry monitoring and continuous pulse oximetry monitoring. EKG was ordered and interpreted. Chest x-ray was obtained. UA was sent to lab. Blood culture and lactic acid were sent to lab, the patient was then administered cefepime 2 g intravenously and IV fluid boluses were based on patient's weight of 120 kg. Chest x-ray reveals right middle lobe and right lower lobe pneumonia. UA reveals glucose. White count is elevated at 23, lactic acid is elevated at 3.0. The patient meets severe sepsis criteria. Zithromax was added to the cefepime to cover for healthcare acquired pneumonia. A call was placed to the on-call special needs librarian for admission. A call was also placed to the patient's neurosurgeon, Dr. Cuenca, and he recently had surgery within the last 30 days. Sepsis Criteria SIRS Criteria (2 or more): Temp > 100.9 or < 96.8, Heart rate over 90, WBC > 99975, < 4000 or > 10% bands Severe Sepsis (+one): Lactate >2 Criteria Outcome: Meets severe sepsis criteria Physician Communication Physician Communication The on-call special needs librarian was paged for admission. Diagnosis Primary Impression: Severe sepsis Additional Impressions: PNA (pneumonia) Qualified Code: J18.9 - Pneumonia of right lung due to infectious organism, unspecified part of lung Elevated troponin Admitting Information Admitting Physician Requests: Admit Mohan Hernandez MD Aug 18, 2016 09:12
[2016-08-18] MEDS ORDERED: ACETAMINOPHEN 325 MG TAB PO ONE (09:15)
[2016-08-18] MEDS ORDERED: CEFEPIME INJ 2,000 MG in SODIUM CHLORIDE 0.9% INJ 100 ML IV ONE (09:15)
[2016-08-18 09:34] LABS: BLOOD GAS VENOUS BASE EXCESS 0.7 mmol/L (-2-2); BLOOD GAS VENOUS HCO3 26 mmol/L (22-26); BLOOD GAS VENOUS O2 CONTENT 11.7 Vol % (9.0-17.0); BLOOD GAS VENOUS O2 HGB SAT 88 % (70-76); BLOOD GAS VENOUS PCO2 49 mmHg (44-48); BLOOD GAS VENOUS PO2 60 mmHg (35-40); BLOOD GAS VENOUS pH 7.34 (7.360-7.400); CRITICAL VALUE NO; DRAW SITE IV; LITER FLOW 3 L/M; OXYGEN DEVICE NASAL CANNULA; STAT YES; TEMP CORR TO 98.6
[2016-08-18 09:40] LABS: AUTOMATED NEUTROPHIL # 22.2 TH/MM3 (1.8-7.7); BASOPHIL % 0.1 % (0.0-2.0); EOSINOPHIL % 0.1 % (0.0-4.0); HEMATOCRIT 32.8 % (39.0-51.0); HEMO FLAGS DIFF FINAL; LYMPH % 1.9 % (9.0-44.0); LYMPHOCYTE # 0.5 TH/MM3 (1.0-4.8); MEAN CELL VOLUME 82.2 FL (80.0-100.0); MEAN CORPUSCULAR HEMOGLOBIN 26.5 PG (27.0-34.0); MEAN CORPUSCULAR HGB CONC 32.2 % (32.0-36.0); MONO % 4.4 % (0.0-8.0); NEUT % 93.5 % (16.0-70.0); PLATELET COUNT 369 TH/MM3 (150-450); RED BLOOD COUNT 3.99 MIL/MM3 (4.50-5.90); RED CELL DISTRIBUTION WIDTH 14.2 % (11.6-17.2); WHITE BLOOD COUNT 23.8 TH/MM3 (4.0-11.0)
[2016-08-18 09:51] LABS: APTT (PATIENT) 26.4 SEC (24.3-30.1); PROTHROMBIN TIME - PATIENT 11.5 SEC (9.8-11.6)
[2016-08-18 10:06] LABS: ANION GAP 9 MEQ/L (5-15); BICARBONATE 27.3 MEQ/L (21.0-32.0); BLOOD UREA NITROGEN 18 MG/DL (7-18); CHLORIDE 100 MEQ/L (98-107); GLOMERULAR FILTRATION RATE 56 ML/MIN (>89); MAGNESIUM 1.8 MG/DL (1.5-2.5); POTASSIUM 4.5 MEQ/L (3.5-5.1); SODIUM (NA) 136 MEQ/L (136-145)
[2016-08-18 10:06] LABS: BLOOD, URINE TRACE (NEG); COMMENT (UR) CULT NOT INDICATED; CULTURE IF INDICATED CULT NOT INDICATED; GLUCOSE,URINE 150 mg/dL (NEG); KETONE, URINE NEG (NEG); MUCUS URINE FEW /lpf (OCC); NITRITE,URINE NEG (NEG); URINE COLOR YELLOW (YELLW/STRAW)
[2016-08-18 10:11] LABS: ALKALINE PHOSPHATASE 123 U/L (45-117); ALT (GPT) 26 U/L (12-78); AST (GOT) 22 U/L (15-37); CREATINE KINASE 105 U/L (39-308)
[2016-08-18 10:28] LABS: CKMB 10.4 NG/ML (0.5-3.6)
--- NOTE | 2016-08-18 10:33 | RADRPT ---
EXAM DATE/TIME: 08/18/2016 09:07 [facility] COMPARISON: CT PULMONARY ANGIOGRAM, April 16, 2015, 11:06. CHEST PA & LAT, September 09, 2015, 10:17. CHEST SINGLE AP, April 16, 2015, 8:04. INDICATIONS : Chest pain and high blood pressure. MEDICAL HISTORY : None. SURGICAL HISTORY : None. ENCOUNTER: Initial ACUITY: 1 day PAIN SCORE: 8/10 LOCATION: Bilateral upper chest FINDINGS: Portable AP views of the chest demonstrate a normal-sized cardiac silhouette. There are patchy areas of airspace opacity in the mid and lower lung zone on the right, slightly increased from the prior st udy. No pleural effusion or pneumothorax is visualized. The bones and soft tissues demonstrate no acu te finding. CONCLUSION: Mild patchy airspace opacity, likely consolidation, in the mid and lower lung zone on the right. This was present to some degree previously but appears increased. Infectious or inflammatory processes sh ould be considered. Prosper Velasquez MD on August 18, 2016 at 10:29 Board Certified Radiologist. This report was verified electronically.
[2016-08-18] MEDS ORDERED: RESP: ALBUTEROL 2.5 MG/IPRATROPIUM 0.5 MG NEB (SCH) NEB ONE (11:00)
[2016-08-18] MEDS ORDERED: AZITHROMYCIN INJ 500 MG in SODIUM CHLOR 0.9% 250 ML INJ 250 ML IV ONE (11:00)
[2016-08-18 11:26] LABS: LACTIC ACID GHOST NOT REPORTABLE
[2016-08-18] MEDS ORDERED: CHLORHEXIDINE GLUCONATE 2 % 1 PACK (2 CLOTHS) TOP PRN (12:00)
[2016-08-18] MEDS ORDERED: SODIUM CHLORIDE 0.9% FLUSH 10 ML FLUSH IV FLUSH PRN (12:00)
[2016-08-18] MEDS ORDERED: SENNOSIDES 8.6 MG TAB PO PRN (12:00)
[2016-08-18] MEDS ORDERED: MISCELLANEOUS NURSING INFORMATION XX SCH (12:00)
[2016-08-18] MEDS ORDERED: ACETAMINOPHEN 325 MG TAB PO PRN (12:00)
[2016-08-18] MEDS ORDERED: RESP: ALBUTEROL 2.5 MG/3 ML NEB (PRN) INH (12:00)
[2016-08-18] MEDS ORDERED: ONDANSETRON HCL 4 MG/2 ML VIAL IV PRN (12:00)
[2016-08-18] MEDS ORDERED: ACETAMINOPHEN/HYDROcodone 325 MG/5 MG TAB PO PRN (12:00)
--- NOTE | 2016-08-18 12:07 | HHI.HP ---
[facility] Service Critical Care Medicine Primary Care Physician Sunday Forrester MD Admission Diagnosis severe sepsis, right middle/lower lobe pneumonia, leukocytosis Diagnosis: (1) Severe sepsis Diagnosis: Principal (2) PNA (pneumonia) (3) Elevated troponin Diagnosis: Principal (4) Low back pain Diagnosis: Principal (5) Hyperlipidemia Diagnosis: Principal (6) HTN (hypertension) Diagnosis: Principal (7) Leukocytosis Diagnosis: Principal (8) Chronic diastolic heart failure Diagnosis: Principal (9) Anemia Diagnosis: Principal (10) Sinus tachycardia Diagnosis: Principal (11) Lactic acidosis Chief Complaint: Confusion, fever, pneumonia Travel History International Travel<30 Days: No Contact w/Intl Traveler <30 Da: No Traveled to Known Affected Are: No Sepsis Criteria SIRS Criteria (2 or more): RR > 20 or PaCO2 < 32, WBC > 34960, < 4000 or > 10 % bands Sepsis Criteria (SIRS+source): Infect source susp/known Severe Sepsis (+one): Lactate >2 Criteria Outcome: Meets severe sepsis criteria History of Present Illness 66-year-old male. Date of admission 08/18/16. Past medical history includes chronic low back pain, pressure, chronic narcotic use, hypertension and dyslipidemia. Earlier this month on July 27/2017, patient underwent an L3/ 4 and L4/5 transforaminal interbody fusion with L3 through L5 decompressive laminectomy, pedicle screw fusion of L3 through 5 with trans-body cage placement at L3/4 and L4/5 secondary to degenerative disc disease with spinal stenosis and neurogenic claudication with Dr. Cuenca. Mr. Tsai was evaluated in the office after surgery, and was noted to have a small amount of postoperative clear drainage and possible infection, was placed on Keflex. The states the patient finished the Keflex and was reevaluated by Dr. Cuenca, there is no further infection according to the . The patient was doing well last night, ate dinner went to bed without difficulty. When Mr. Tsai woke this morning he was vomiting, subjective afebrile with night sweats, chills and confused. Oriented to person only not place time or year. During his ER workup was noted to have a leukocytosis of 22 ,000. Lactate 3.6 Right middle/lower lobe pneumonia. Patient was treated empirically with cefepime and Zithromax. He was also bolused 2 L normal saline. Patient is much improved currently awake and alert to person place and time. Currently thirsty and warm. Review of Systems Constitutional: COMPLAINS OF: Fatigue, Fever, DENIES: Weight gain Endocrine: DENIES: Polydipsia, Polyuria Eyes: DENIES: Blurred vision, Double Vision Ears, nose, mouth, throat: DENIES: Tinnitus, Odynophagia Respiratory: COMPLAINS OF: Cough, Sputum production, Shortness of breath, DENIES: Apneas, Wheezing, Hemoptysis Cardiovascular: DENIES: Chest pain Gastrointestinal: DENIES: Abdominal pain Genitourinary: DENIES: Urinary frequency, Urgency Musculoskeletal: COMPLAINS OF: Back pain, DENIES: Joint pain Integumentary: DENIES: Abnormal pigmentation Hematologic/lymphatic: DENIES: Bruising Immunologic/allergic: DENIES: Eczema Neurologic: DENIES: Abnormal gait, Headache Psychiatric: COMPLAINS OF: Confusion, Depression, DENIES: Anxiety Past Family Social History Allergies: Coded Allergies: Mushroom (Unverified Allergy, Severe, Shortness of Breath, 08/18/16) *MDRO Multi-Drug Resistant Organism (Verified Adverse Reaction, Unknown, ) MRSA (hand wound) 05/2013 Past Medical History Hypertension Dyslipidemia Chronic low back pain Chronic narcotic use Depression Chronic diastolic heart failure Past Surgical History Vasectomy Right finger I&D for MRSA Hernia repair L3/4/L4/L5 transforaminal interbody fusion with L3-L5 post laminectomy with pedicle screw fixation and trans body cage placement Reported Medications Lisinopril 20 mg by mouth daily Paroxetine 40 mg by mouth daily Lovastatin 40 mg by mouth daily Morphine sulfate 100 mg by mouth 3 times a day Active Ordered Medications Reviewed in EMR Family History Sister with liver failure/AIDS Mother with lung cancer Social History No documentation of tobacco, alcohol or IV drug use Physical Exam Vital Signs Vital Signs Date Time Temp Pulse Resp B/P Pulse Ox O2 Delivery O2 Flow Rate FiO2 08/18/16 09:58 125 08/18/16 09:04 93 Nasal Cannula 4 08/18/16 08:46 103.0 144 22 163/71 88 Physical Exam GENERAL: 66-year-old male, resting in bed in no acute distress on nasal cannula SKIN: Warm and dry. Tattoo of bird on right shoulder. Lumbar laminectomy surgical site without drainage. No erythema. well healed HEAD: Atraumatic. Normocephalic. EYES: Pupils equal and round around 3 mm bilaterally and reactive. No scleral icterus. No injection or drainage. ENT: No nasal bleeding or discharge. Mucous membranes pink and moist. NECK: Trachea midline. No JVD. CARDIOVASCULAR: Tachycardia, RR. S1, S2 no S4. Without murmur RESPIRATORY: A few crackles appreciated in the right lower lobe. No wheezing. Symmetrical excursion. GASTROINTESTINAL: Abdomen soft, non-tender, nondistended. Hepatic and splenic margins not palpable. MUSCULOSKELETAL: Extremities without significant peripheral edema. No obvious deformities. NEUROLOGICAL: Awake and alert. No obvious cranial nerve deficits. Motor grossly within normal limits. Five out of 5 muscle strength in the arms and legs. Normal speech. PSYCHIATRIC: Appropriate mood and affect; insight and judgment normal. Laboratory Laboratory Tests Test 08/18/16 08/18/16 08/18/16 09:00 09:25 09:30 White Blood Count 23.8 Red Blood Count 3.99 Hemoglobin 10.5 Hematocrit 32.8 Mean Corpuscular Volume 82.2 Mean Corpuscular Hemoglobin 26.5 Mean Corpuscular Hemoglobin 32.2 Concent Red Cell Distribution Width 14.2 Platelet Count 369 Mean Platelet Volume 8.5 Neutrophils (%) (Auto) 93.5 Lymphocytes (%) (Auto) 1.9 Monocytes (%) (Auto) 4.4 Eosinophils (%) (Auto) 0.1 Basophils (%) (Auto) 0.1 Neutrophils # (Auto) 22.2 Lymphocytes # (Auto) 0.5 Monocytes # (Auto) 1.1 Eosinophils # (Auto) 0.0 Basophils # (Auto) 0.0 CBC Comment DIFF FINAL Differential Comment Prothrombin Time 11.5 Prothromb Time International 1.0 Ratio Activated Partial 26.4 Thromboplast Time Sodium Level 136 Potassium Level 4.5 Chloride Level 100 Carbon Dioxide Level 27.3 Anion Gap 9 Blood Urea Nitrogen 18 Creatinine 1.29 Estimat Glomerular Filtration 56 Rate Random Glucose 180 Lactic Acid Level 3.0 Calcium Level 10.3 Magnesium Level 1.8 Total Bilirubin 1.0 Aspartate Amino Transf 22 (AST/SGOT) Alanine Aminotransferase 26 (ALT/SGPT) Alkaline Phosphatase 123 Total Creatine Kinase 105 Creatine Kinase MB 10.4 Troponin I 0.81 Total Protein 7.5 Albumin 3.5 Lipase 70 Blood Gas Puncture Site IV Blood Gas Patient Temperature 98.6 Venous Blood pH 7.34 Venous Blood Partial Pressure 49 CO2 Venous Blood Partial Pressure 60 O2 Venous Blood HCO3 26 Venous Blood Oxygen Saturation 88 Venous Blood Oxygen Content 11.7 Venous Blood Base Excess 0.7 Oxygen Delivery Device NASAL CANNULA Blood Gas Liter Flow 3 Blood Gas Ventilator Setting Urine Color YELLOW Urine Turbidity CLEAR Urine pH 5.0 Urine Specific [place] 1.021 Urine Protein TRACE Urine Glucose (UA) 150 Urine Ketones NEG Urine Occult Blood TRACE Urine Nitrite NEG Urine Bilirubin NEG Urine Urobilinogen LESS THAN 2.0 Urine Leukocyte Esterase NEG Urine WBC LESS THAN 1 Urine Mucus FEW Microscopic Urinalysis Comment CULT NOT INDICATED Date/Time Procedure Status Source Growth 08/18/16 09:30 Influenza Types A,B Antigen (ZA) - Final Complete Nasal Aspirate NEGATIVE FOR FLU A AND B ANTIGEN.... 08/18/16 09:05 Aerobic Blood Culture Received Blood Peripheral Pending 08/18/16 09:05 Anaerobic Blood Culture Received Blood Peripheral Pending Result Diagram: 08/18/1689908/18/16899 Imaging Last Impressions Chest X-Ray 08/18/16900 Signed Impressions: Service Date/Time: July 09:07 - CONCLUSION: Mild patchy airspace opacity, likely consolidation, in the mid and lower lung zone on the right. This was present to some degree previously but appears increased. Infectious or inflammatory processes should be considered. Prosper Velasquez MD Assessment and Plan Assessment and Plan Neuro/Psych: July 27/2017 status post L3/4 and L4/5 transforaminal interbody fusion, L3 through L5 decompressive laminectomy, L3 through L5 critical screw fixation L3/ 4 and L4/5 transbody cage placement secondary to degenerative disc disease, spinal stenosis with neurogenic claudication by Dr. Cuenca Chronic low back pain Depression Chronic narcotic use Dr. Cuenca/neurosurgery consulted Acetaminophen for fever Imperial/morphine for pain management Resume scheduled morphine sulfate 100 mg by mouth 3 times a day Continue paroxetine 40 mg by mouth daily On morphine sulfate 1 mg by mouth 3 times a day. Continue with clearing of altered mental status CV: Elevated troponin Lactic acidosis History of hypertension Dyslipidemia Holding lisinopril 20 mg by mouth daily/home medication hypertension CONTINUE lovastatin 40 mg by mouth daily for dyslipidemia. Hospital substitution Echocardiogram 2014 revealed EF 50-55%. Grade 1 diastolic dysfunction. Mildly dilated left atrium. Serial lactates until cleared Resp: Acute respiratory insufficiency Community-acquired pneumonia/right middle and lower lobe present on admission Nasal cannula to maintain saturations greater than equal to 92% Incentive spirometry while awake Chest x-ray 08/18 reveals right middle/lower lobe pneumonia/infiltrates. See infectious disease for antibiotic coverage Albuterol nebulizers every 6 hours and as needed Follow-up chest x-ray in a.m. GI: Clear liquid diet Protonix for GI prophylaxis Colace/as needed Senokot for bowel regimen : [place] only if indicated for accurate I's and O's in a critically ill patient Endo: Sliding-scale insulin with Accu-Cheks to maintain euglycemia/before meals and at bedtime Renal: Creatinine currently within normal limits. Accurate I's and O's Monitor urine output Heme: Leukocytosis Normocytic anemia A.m. CBC. Follow trends ID: Pneumonia/community-acquired present admission History of I&D right index finger MRSA Day 1 cefepime/Zithromax and Flagyl Pertinent cultures 08/18 - blood cultures 2 - pending influenza, urine Legionella pneumococcal antigen and sputum all pending MSK: Chronic low back pain PT evaluate and treat FEN: Replace electrolytes as clinically indicated Access - Utilize peripheral IV. Central line if indicated Prophylaxis - GI - Protonix - DVT - SCD/Lovenox subcutaneous Critical Care: The total critical care time was 55 minutes. Time to perform other separately billable procedures was not included in the critical care time. Code Status Full code Discussed Condition With Dr. Hernandez/ED physician. Patient. Care plan discussed and all questions answered Problem Qualifiers (1) PNA (pneumonia): Qualified Code: J18.9 - Pneumonia of right lung due to infectious organism, unspecified part of lung (2) Low back pain: Qualified Code: M54.5 - Chronic low back pain, unspecified back pain laterality , with sciatica presence unspecified (3) Hyperlipidemia: Qualified Code: E78.5 - Hyperlipidemia, unspecified hyperlipidemia type (4) HTN (hypertension): Qualified Code: I10 - Essential hypertension (5) Leukocytosis: Qualified Code: D72.829 - Leukocytosis, unspecified type (6) Anemia: Qualified Code: D64.9 - Anemia, unspecified type Silviano Harris MD Aug 18, 2016 12:07
[2016-08-18] MEDS: MORPHINE SULFATE 100 MG CONTROLLED RELEASE TAB PO SCH ×2 (13:00→18:00)
[2016-08-18] MEDS: SODIUM CHLOR 0.9% 1000 ML INJ 1,000 ML IV SCH (13:10)
[2016-08-18] MEDS: metroNIDAZOLE 500 MG INJ 100 ML IV SCH ×2 (13:10→20:13)
[2016-08-18] MEDS: RESP: ALBUTEROL 2.5 MG/3 ML NEB (SCH) INH ×2 (16:00→20:44)
[2016-08-18] MEDS ORDERED: SODIUM CHLOR 0.45% 1000 ML INJ 1,000 ML IV ONE (16:30)
--- NOTE | 2016-08-18 16:42 | EC ---
Study Study Date:08/18/2016 STUDY CONCLUSIONS SUMMARY - Procedure narrative: Transthoracic echocardiography. Image quality was poor. Scanning was performed from the parasternal, apical, and subcostal acoustic windows. - Left ventricle: The cavity size was normal. Wall thickness was normal. Systolic function was normal. The estimated ejection fraction was in the range of 55% to 60%. Regional wall motion abnormalities cannot be excluded. - Mitral valve: Trace regurgitation. If LV function is below 40, please consider prescribing an ACEI or ARB or document rationale for non-use. PROCEDURE DATA STUDY STATUS: Elective. Procedure: Transthoracic echocardiography. Image quality was poor. Scanning was performed from the parasternal, apical, and subcostal acoustic windows. Study completion: The patient tolerated the procedure well. Transthoracic echocardiography. M-mode, complete 2D, complete spectral Doppler, and color Doppler. Patient status: Inpatient. CARDIAC ANATOMY LEFT VENTRICLE: The cavity size was normal. Wall thickness was normal. Systolic function was normal. The estimated ejection fraction was in the range of 55% to 60%. Regional wall motion abnormalities cannot be excluded. AORTIC VALVE: Trileaflet; normal thickness leaflets. Doppler: Transvalvular velocity was within the normal range. There was no stenosis. No regurgitation. AORTA: Aortic root: The aortic root was normal in size. MITRAL VALVE: Structurally normal valve. Doppler: Transvalvular velocity was within the normal range. There was no evidence for stenosis. Trace regurgitation. LEFT ATRIUM: The atrium was normal in size. RIGHT VENTRICLE: The cavity size was normal. Wall thickness was normal. PULMONIC VALVE: Doppler: Transvalvular velocity was within the normal range. There was no evidence for stenosis. No regurgitation. TRICUSPID VALVE: Structurally normal valve. Doppler: Transvalvular velocity was within the normal range. No regurgitation. PULMONARY ARTERY: The main pulmonary artery was normal-sized. Systolic pressure was within the normal range. RIGHT ATRIUM: The atrium was normal in size. PERICARDIUM: There was no pericardial effusion. SYSTEMIC VEINS: Inferior vena cava: The vessel was normal in size. BASIC MEASUREMENTS ADULT Normal Left ventricle LV internal dimension, ED, chordal level, *54.2 mm 43-52 PLAX LV internal dimension, ES, chordal level, *45.4 mm 23-38 PLAX Fractional shortening, chordal level, PLAX *16 % >29 LV posterior wall thickness, ED 8.72 mm IVS/LVPW ratio, ED 1.09 <1.3 Ventricular septum Septal thickness, ED 9.48 mm Aortic valve Leaflet separation 21 mm 15-26 Left atrium Anterior-posterior dimension 37 mm Right ventricle RV internal dimension, ED, PLAX 22.3 mm 19-38 BASIC MEASUREMENTS ADULT Normal Aortic valve Leaflet separation 21 mm 15-26 Aorta Root diameter, ED *39 mm 20-37 DOPPLER MEASUREMENTS ADULT Normal Mitral valve Peak E-wave velocity 54.3 cm/s Peak A-wave velocity 79 cm/s Peak E/A ratio 0.7 Tricuspid valve Regurgitant peak velocity 180 cm/s Peak RV-RA gradient, S 13 mm Hg Maximal regurgitant velocity 180 cm/s LEGEND: Mean values are shown as u=mean value. Asterisk (*) ramires values outside specified normal range. Prepared and signed by Nic Uriarte [id number]
--- NOTE | 2016-08-18 17:03 | EKG ---
Date Performed: 08/18/2016 Time Performed: 16:37:42 PTAGE: 66 years EKG: Sinus rhythm . Inferior infarct - age undetermined Abnormal ECG NO SIGNIFICANT CHANGE FROM PRIOR ELECTROCARDIOGRAM . PREVIOUS TRACING : 08/18/2016 14.47 DOCTOR: Maynor Constantino Interpretating Date/Time 08/18/2016 17:02:32
[2016-08-18] MEDS: CEFEPIME INJ 2,000 MG in SODIUM CHLORIDE 0.9% INJ 100 ML IV SCH (17:06)
[2016-08-18] MEDS ORDERED: ASPIRIN 325 MG TAB PO ONE (17:30)
--- NOTE | 2016-08-18 17:43 | EKG ---
Date Performed: 08/18/2016 Time Performed: 08:56:29 PTAGE: 66 years EKG: SINUS TACHYCARDIA NONSPECIFIC ST & T-WAVE ABNORMALITY ABNORMAL RHYTHM ECG Compared to prior study, criteria for inferior infarction are no longer present. PREVIOUS TRACING : 09/09/2015 09.56 DOCTOR: Jace Payne Interpretating Date/Time 08/18/2016 17:42:41
[2016-08-18] MEDS: METOPROLOL TARTRATE 5 MG/5 ML VIAL IV PUSH SCH (18:00)
--- NOTE | 2016-08-18 18:27 | EKG ---
Date Performed: 08/18/2016 Time Performed: 14:47:08 PTAGE: 66 years EKG: Sinus rhythm INFERIOR MYOCARDIAL INFARCTION ABNORMAL ECG COMPARED TO PRIOR ELECTROCARDIOGRAM, Rate has slowed and possible inferior myocardial infarction pattern is present PREVIOUS TRACING : 08/18/2016 08.56 DOCTOR: Maynor Constantino Interpretating Date/Time 08/18/2016 18:26:41
[2016-08-18] MEDS: PRAVASTATIN SOD 40 MG TAB PO SCH (20:13)
[2016-08-18] MEDS: SODIUM CHLORIDE 0.9% FLUSH 10 ML FLUSH IV FLUSH SCH (20:13)
[2016-08-18] MEDS: DOCUSATE SODIUM 100 MG CAP PO SCH (20:13)
[2016-08-18] MEDS: MORPHINE SULFATE 4 MG/ML INJ IV PRN (20:19)
--- NOTE | 2016-08-18 20:56 | EKG ---
Date Performed: 08/18/2016 Time Performed: 20:17:59 PTAGE: 66 years EKG: Sinus rhythm POSSIBLE INFERIOR MYOCARDIAL INFARCTION , PROBABLY OLD ABNORMAL ECG NO SIGNIFICANT CHANGE FROM PRIO R ELECTROCARDIOGRAM. PREVIOUS TRACING : 08/18/2016 16.37 DOCTOR: Maynor Constantino Interpretating Date/Time 08/18/2016 20:55:22
[2016-08-19] VITALS (15 sets, daily range): BP systolic 107–151; BP diastolic 55–84; PULSE 71–94; RESP 13–20; TEMP 97.5–99; O2SAT 92–97
[2016-08-19] MEDS: CEFEPIME INJ 2,000 MG in SODIUM CHLORIDE 0.9% INJ 100 ML IV SCH ×3 (00:01→19:13)
[2016-08-19] MEDS: SODIUM CHLOR 0.9% 1000 ML INJ 1,000 ML IV SCH ×2 (00:02→08:01)
[2016-08-19] MEDS: METOPROLOL TARTRATE 5 MG/5 ML VIAL IV PUSH SCH ×3 (00:02→12:00)
[2016-08-19] MEDS ORDERED: HEPARIN-D5W INJ 250 ML IV SCH (01:45)
[2016-08-19 03:33] LABS: HEMATOCRIT 25.8 % (39.0-51.0); MEAN CELL VOLUME 84.1 FL (80.0-100.0); MEAN CORPUSCULAR HEMOGLOBIN 26.9 PG (27.0-34.0); MEAN CORPUSCULAR HGB CONC 31.9 % (32.0-36.0); PLATELET COUNT 230 TH/MM3 (150-450); RED BLOOD COUNT 3.07 MIL/MM3 (4.50-5.90); RED CELL DISTRIBUTION WIDTH 14.5 % (11.6-17.2); REVIEW FLAG FINAL; WHITE BLOOD COUNT 17.5 TH/MM3 (4.0-11.0)
[2016-08-19 03:38] LABS: APTT (PATIENT) 31.4 SEC (24.3-30.1)
[2016-08-19] MEDS: RESP: ALBUTEROL 2.5 MG/3 ML NEB (SCH) INH ×4 (03:43→20:46)
[2016-08-19] MEDS: CHLORHEXIDINE GLUCONATE 2 % 1 PACK (2 CLOTHS) TOP SCH (04:00)
[2016-08-19] MEDS: MORPHINE SULFATE 4 MG/ML INJ IV PRN (04:13)
[2016-08-19] MEDS: metroNIDAZOLE 500 MG INJ 100 ML IV SCH ×3 (04:13→20:07)
[2016-08-19 04:36] LABS: AUTOMATED NEUTROPHIL # 12.2 TH/MM3 (1.8-7.7); BASOPHIL % 0.2 % (0.0-2.0); EOSINOPHIL # 0.3 TH/MM3 (0-0.4); EOSINOPHIL % 2.1 % (0.0-4.0); HEMATOCRIT 25.9 % (39.0-51.0); HEMO FLAGS DIFF FINAL; LYMPH % 12.8 % (9.0-44.0); MEAN CELL VOLUME 82.9 FL (80.0-100.0); MEAN CORPUSCULAR HEMOGLOBIN 26.5 PG (27.0-34.0); MONO % 5.9 % (0.0-8.0); PLATELET COUNT 237 TH/MM3 (150-450); RED BLOOD COUNT 3.13 MIL/MM3 (4.50-5.90); RED CELL DISTRIBUTION WIDTH 14.8 % (11.6-17.2); WHITE BLOOD COUNT 15.5 TH/MM3 (4.0-11.0)
[2016-08-19 04:41] LABS: INTERNATIONAL NORMALIZED RATIO 1.1 RATIO
[2016-08-19 04:58] LABS: ALT (GPT) 29 U/L (12-78); ANION GAP 5 MEQ/L (5-15); AST (GOT) 86 U/L (15-37); BICARBONATE 29.7 MEQ/L (21.0-32.0); BLOOD UREA NITROGEN 12 MG/DL (7-18); CHLORIDE 109 MEQ/L (98-107); GLOMERULAR FILTRATION RATE 92 ML/MIN (>89); MAGNESIUM 2.2 MG/DL (1.5-2.5); POTASSIUM 4.7 MEQ/L (3.5-5.1); SODIUM (NA) 144 MEQ/L (136-145)
[2016-08-19 05:00] LABS: ALKALINE PHOSPHATASE 88 U/L (45-117); LDL CHOLESTEROL 45 MG/DL (0-99); TOTAL BILIRUBIN ADULT 0.5 MG/DL (0.2-1.0)
--- NOTE | 2016-08-19 06:03 | RADRPT ---
EXAM DATE/TIME: 08/19/2016 04:43 [facility] COMPARISON: CHEST SINGLE AP, August 18, 2016, 9:07. INDICATIONS : Evaluate for pneumonia. MEDICAL HISTORY : None. SURGICAL HISTORY : None. ENCOUNTER: Subsequent ACUITY: 3 weeks PAIN SCORE: Non-responsive. LOCATION: chest FINDINGS: Patchy infiltrate right mid and lower lung again noted, not significantly changed. No large effusion seen. No pneumothorax. Heart size stable, within normal limits. CONCLUSION: Patchy right-sided pneumonia not significantly changed. Prosper Vaughn MD on August 19, 2016 at 6:00 Board Certified Radiologist. This report was verified electronically.
[2016-08-19] MEDS: PANTOPRAZOLE SOD 40 MG DELAYED RELEASE TAB PO SCH (07:54)
[2016-08-19] MEDS: DOCUSATE SODIUM 100 MG CAP PO SCH ×2 (07:54→20:07)
[2016-08-19] MEDS: PARoxetine HCL 20 MG TAB PO SCH (07:55)
[2016-08-19] MEDS: LISINOPRIL 20 MG TAB PO SCH (07:55)
[2016-08-19] MEDS: MORPHINE SULFATE 100 MG CONTROLLED RELEASE TAB PO SCH ×3 (07:56→19:13)
[2016-08-19] MEDS: SODIUM CHLORIDE 0.9% FLUSH 10 ML FLUSH IV FLUSH SCH ×2 (08:00→20:07)
[2016-08-19] MEDS ORDERED: ASPIRIN 325 MG TAB PO SCH (09:00)
[2016-08-19 09:51] LABS: APTT (PATIENT) 35.6 SEC (24.3-30.1)
[2016-08-19] MEDS: AZITHROMYCIN INJ 500 MG in SODIUM CHLOR 0.9% 250 ML INJ 250 ML IV SCH (11:00)
--- NOTE | 2016-08-19 11:40 | PD.CONS ---
HPI Service Cardiology Consult Requested By Primary Care Physician Sunday Forrester MD History of Present Illness 66 y/o M with cardiac risk factors that included HTN, hyperlipidemia, obesity, former smoker that presents to the ED with fever, confusion in the setting of recent back surgery and incision infection. According to reports he underwent underwent on 07/2016 transforaminal interbody fusion with decompressive laminectomy, pedicle screw fusion of L3 through 5 with trans-body cage placement at L3/4 and L4/[address] Cuenca. Post op office visit noted incision drainage concerning for infection for which was placed on PO antibiotics. Mrs. Tsai reports he was on his usual state of health yesterday when he vomiting, night sweats, chills and confused. In the ER he was noted to febrile with a Temp 103, leukocytosis of 22,000, Lactate 3.6, tachycardia, right middle/lower lobe pneumonia and first blood culture grew gram + cocci in pairs. Patient was admitted to ICU for sepsis management. Cardiology has been consulted because of elevated troponin's. He denies any CV complaints. Review of Systems Consitutional: COMPLAINS OF: Fever, Chills, DENIES: Fatigue, Weight gain, Weight loss Eyes: DENIES: Amaurosis Fugax, Change in vision HEENT: DENIES: Lightheadedness, Change in hearing Respiratory: DENIES: See HPI, Cough, Snoring, Shortness of breath, Wheezing, Sputum production Cardiovascular: DENIES: See HPI, Chest pain, Palpitations, Syncope, Tachycardia Gastrointestinal: DENIES: Nausea, Vomiting, Change in bowel habits, Reflux, Bloody stools, Melena Genitourinary: DENIES: Urinary incontinence, Difficulty voiding Neurologic: DENIES: Tingling or numbness, Memory problems, Poor Balance, Stroke symptoms Musculoskeletal: DENIES: Joint pain, Muscle pain, Limited range of motion, Back pain Psychiatric: DENIES: Anxiety, Depression, Sleep disturbances Hematologic: DENIES: Bruising tendencies, Bleeding tendencies Endocrine: DENIES: Weight gain, Weight loss, Thyroid disease Past Family Social History Allergies: Coded Allergies: Mushroom (Unverified Allergy, Severe, Shortness of Breath, 08/18/16) *MDRO Multi-Drug Resistant Organism (Verified Adverse Reaction, Unknown, ) MRSA (hand wound) - 05/2013 MRSA PCR Screen POSITIVE - 08/18/2016 Past Medical History Hypertension Dyslipidemia Chronic low back pain Chronic narcotic use Depression Chronic diastolic heart failure Past Surgical History Vasectomy Right finger I&D for MRSA Hernia repair L3/4/L4/L5 transforaminal interbody fusion with L3-L5 post laminectomy with pedicle screw fixation and trans body cage placement Reported Medications Reported Meds & Active Scripts Active Hydrocodone-Acetaminophen 10-325 mg Tab 1 Tab PO Q4HR PRN Reported Paroxetine (Paroxetine HCl) 40 Mg Tab 40 Mg PO DAILY Lovastatin 40 Mg Tab 40 Mg PO HS Lisinopril 20 Mg Tab 20 Mg PO DAILY Morphine Sulfate CR (Morphine Sulfate) 100 Mg Tab 1 Tab PO TID Active Ordered Medications Current Medications Medications (Trade) Dose Ordered Sig/Abdi Route Start Time Stop Time Status Last Admin ([place] 10-325 Mg) 1 tab Q4HR PRN PO 08/18/16 12:00 (Pravachol) 40 mg HS PO 08/18/16 21:00 08/18/16 20:13 (Paxil) 40 mg DAILY PO 08/19/16 09:00 08/19/16 07:55 Morphine Sulfate 100 mg 100 mg TID PO 08/18/16 13:00 08/19/16 07:56 Cefepime HCl 2000 mg/Sodium Chloride 100 ml @ 200 mls/hr Q8H IV 08/18/16 17:00 08/19/16 07:54 Azithromycin 500 mg/Sodium Chloride 250 ml @ 250 mls/hr Q24H IV 08/19/16 11:00 Metronidazole 100 ml @ 100 mls/hr Q8H IV 08/18/16 13:00 08/19/16 04:13 (NS 1000 ml Inj) 1,000 ml @ 84 mls/hr [id number] IV 08/18/16 11:56 08/19/16 08:01 (NS Flush) 2 ml UNSCH PRN IV FLUSH 08/18/16 12:00 (NS Flush) 2 ml BID IV FLUSH 08/18/16 21:00 08/19/16 08:00 (Tylenol) 650 mg Q6H PRN PO 08/18/16 12:00 ([place] 5-325 Mg) 1 tab Q4H PRN PO 08/18/16 12:00 (Morphine Inj) 2 mg Q2H PRN IV 08/18/16 12:00 08/19/16 04:13 (Protonix) 40 mg DAILY PO 08/19/16 09:00 08/19/16 07:54 (Zofran Inj) 4 mg Q6H PRN IV 08/18/16 12:00 (Colace) 100 mg BID PO 08/18/16 21:00 08/19/16 07:54 (Senokot) 17.2 mg Q12H PRN PO 08/18/16 12:00 Miscellaneous Information 1 [id number] XX 08/18/16 12:00 (Chlorhexidine 2% Cloth) 3 pack Taper DAILY@04 TOP 08/19/16 04:00 08/15/17 03:59 08/19/16 04:00 (Chlorhexidine 2% Cloth) 3 pack UNSCH PRN TOP 08/18/16 12:00 (Aspirin) 325 mg DAILY PO 08/19/16 09:00 08/19/16 07:55 (Lopressor Inj) 5 mg Q6HR IV PUSH 08/18/16 18:00 08/19/16 06:00 Lisinopril 20 mg 20 mg DAILY PO 08/19/16 09:00 08/19/16 07:55 (Heparin-D5W Inj) 250 ml @ 0 mls/hr TITRATE IV 08/19/16 01:45 08/19/16 04:03 Family History Sister with liver failure/AIDS Mother with lung cancer Social History No tobacco, alcohol or IV drug use Physical Exam Vital Signs Vital Signs Date Time Temp Pulse Resp B/P Pulse Ox O2 Delivery O2 Flow Rate FiO2 08/19/16 08:56 18 08/19/16 08:42 96 Nasal Cannula 2.00 08/19/16 08:00 75 08/19/16 08:00 97.5 75 18 131/72 96 08/19/16 06:00 71 08/19/16 04:29 18 08/19/16 04:00 79 08/19/16 04:00 98.1 79 16 129/60 97 08/19/16 02:00 76 08/19/16 00:00 80 08/19/16 00:00 99.0 80 14 107/59 93 08/18/16 22:00 93 08/18/16 20:44 94 Nasal Cannula 3.00 08/18/16 20:00 87 08/18/16 20:00 99.2 87 16 116/69 93 08/18/16 18:00 89 08/18/16 16:00 97 08/18/16 16:00 98.5 97 20 131/69 94 08/18/16 15:30 78 105/60 08/18/16 13:29 99.0 105 18 113/59 95 08/18/16 12:00 115 117/58 Physical Exam GENERAL: Well-nourished, well-developed patient. SKIN: Warm and dry. HEAD: Normocephalic. EYES: No scleral icterus. No injection or drainage. NECK: Supple, trachea midline. No JVD or lymphadenopathy. CARDIOVASCULAR: Regular rate and rhythm without murmurs, gallops, or rubs. RESPIRATORY: Breath sounds equal bilaterally. No accessory muscle use. GASTROINTESTINAL: Abdomen soft, non-tender, nondistended. EXTREMITIES: No cyanosis, or edema. NEUROLOGICAL: Awake, alert, and oriented x 3. Non-focal. Laboratory Laboratory Tests Test 08/18/16 08/18/16 08/18/16 08/18/16 12:40 14:45 15:45 18:25 Lactic Acid Level 2.7 3.0 Troponin I 6.66 12.60 Nasal Screen MRSA (PCR) MRSA DETECTED Test 08/19/16 08/19/16 08/19/16 08/19/16 00:42 02:18 04:08 08:55 Lactic Acid Level 0.9 1.0 Troponin I 13.80 13.50 White Blood Count 17.5 15.5 Red Blood Count 3.07 3.13 Hemoglobin 8.2 8.3 Hematocrit 25.8 25.9 Mean Corpuscular Volume 84.1 82.9 Mean Corpuscular Hemoglobin 26.9 26.5 Mean Corpuscular Hemoglobin 31.9 32.0 Concent Red Cell Distribution Width 14.5 14.8 Platelet Count 230 237 Mean Platelet Volume 8.8 8.4 Activated Partial 31.4 32.0 35.6 Thromboplast Time Neutrophils (%) (Auto) 79.0 Lymphocytes (%) (Auto) 12.8 Monocytes (%) (Auto) 5.9 Eosinophils (%) (Auto) 2.1 Basophils (%) (Auto) 0.2 Neutrophils # (Auto) 12.2 Lymphocytes # (Auto) 2.0 Monocytes # (Auto) 0.9 Eosinophils # (Auto) 0.3 Basophils # (Auto) 0.0 CBC Comment DIFF FINAL Differential Comment Prothrombin Time 12.0 Prothromb Time International 1.1 Ratio Sodium Level 144 Potassium Level 4.7 Chloride Level 109 Carbon Dioxide Level 29.7 Anion Gap 5 Blood Urea Nitrogen 12 Creatinine 0.84 Estimat Glomerular Filtration 92 Rate Random Glucose 111 Calcium Level 8.6 Phosphorus Level 3.0 Magnesium Level 2.2 Total Bilirubin 0.5 Aspartate Amino Transf 86 (AST/SGOT) Alanine Aminotransferase 29 (ALT/SGPT) Alkaline Phosphatase 88 Total Protein 5.8 Albumin 2.6 Triglycerides Level 91 Cholesterol Level 102 LDL Cholesterol 45 HDL Cholesterol 39.0 Cholesterol/HDL Ratio 2.61 Date/Time Procedure Status Source Growth 08/18/16 21:30 Legionella Antigen - Final Complete Urine Clean Catch PRESUMPTIVE NEGATIVE FOR LEGIONELLA P... 08/18/16 21:30 Streptococcus pneumoniae Antigen (M - Final Complete Urine Clean Catch PRESUMPTIVE NEGATIVE FOR STREPTOCOCCU... 08/18/16 09:30 Influenza Types A,B Antigen (ZA) - Final Complete Nasal Aspirate NEGATIVE FOR FLU A AND B ANTIGEN.... 08/18/16 09:05 Aerobic Blood Culture Worksheet Blood Peripheral Pending 08/18/16 09:05 Anaerobic Blood Culture Worksheet Blood Peripheral Pending Result Diagram: 08/19/16 0408 08/19/16 0408 Imaging Last Impressions Chest X-Ray 08/19/16 0600 Signed Impressions: Service Date/Time: Friday, August 19, 2016 04:43 - CONCLUSION: Patchy right-sided pneumonia not significantly changed. Prosper Vauhgn MD ECHO 08/18/16- NORMAL LV SYSTOLIC FUNCTION EF 60%. NO WALL MOTION ABNORMALITIES Assessment and Plan Problem List: (1) Elevated troponin Assessment and Plan: 66 y/o M with cardiac risk factors HTN, HLD and obesity admitted with sepsis in the setting of recent back surgery and PNA. Troponin's elevated. NO CV complaints. ECHO- normal LV systolic function. EKG sinus tachycardia with inferior Q waves suggestive of old DC. No cardiac work up in the past. This AM H &H trending down ?dilutional vs active bleed. He has remains afebrile and hemodynamically stable, leukocytosis trending down and tachycardia has resolved. Regarding troponin's this is likely due to demand ischemia due to sepsis, although ACS it also a possibility, however given worsening anemia and sepsis he is NOT a candidate for an invasive strategy at this point, thus will treat medically. Recommendations: 1. Aspirin 81mg PO daily 2. Metoprolol 12.5mg PO BID 3. Cont Statins 4. Repeat CBC stat 5. Telemetry monitoring 6. ID consult 7. Neurosurgery consult 8. MPI vs [facility] before discharge Thank you for the opportunity to participate in the care of this patient (2) Fever (3) Acute encephalopathy (4) Leukocytosis (5) Low back pain (6) Sinus tachycardia (7) Anemia (8) Hyperlipidemia (9) HTN (hypertension) (10) Severe sepsis (11) PNA (pneumonia) (12) Lactic acidosis Problem Qualifiers (1) Low back pain: Qualified Code: M54.5 - Chronic low back pain, unspecified back pain laterality , with sciatica presence unspecified (2) Anemia: Qualified Code: D64.9 - Anemia, unspecified type (3) Hyperlipidemia: Qualified Code: E78.5 - Hyperlipidemia, unspecified hyperlipidemia type (4) HTN (hypertension): Qualified Code: I10 - Essential hypertension (5) PNA (pneumonia): Qualified Code: J18.9 - Pneumonia of right lung due to infectious organism, unspecified part of lung Black Delgado MD Aug 19, 2016 11:40
[2016-08-19 11:53] LABS: APTT (PATIENT) 33.1 SEC (24.3-30.1)
[2016-08-19] MEDS ORDERED: PILL SPLITTER OTHER PRN (15:30)
[2016-08-19] MEDS ORDERED: Vancomycin Consult Pharmacy 1 EA OTHER SCH (15:30)
[2016-08-19 17:39] LABS: APTT (PATIENT) 33.8 SEC (24.3-30.1)
--- NOTE | 2016-08-19 18:32 | PD.ID.CON ---
History of Present Illness Service ID Consult Requested By Dr Harris Reason for Consult staph epi bacteremia Primary Care Physician Sunday Forrester MD Diagnoses: History of Present Illness The patient is a 66-year-old male sp Lumbar L3-4 and L4-5 transforaminal interbody fusion; L3, L4 and L5 decompressive laminectomies; L3-5 pedicle screw fixation; L3-4 and L4-5 interbody cage placement; microsurgical technique for L3-4 and L4-5 degenerative disc disease with facet arthropathy and associated spinal listhesis /instability and scoliosis with spinal stenosis; intractable low back pain with neurogenic claudication performed by Dr Lul Cuenca on Jul 27, 2016 After discharge patient noted to have a small amount of postoperative bleeding and possible infection, he was placed on Keflex which he completed and then was reevaluated by Dr. Cuenca, with no further infection found according to the records Pt presented to the emergency department for fever and confusion yday. He was fine lorraine t going to bed Pt had a fever of 103 on presentation. His flu test was negative. Leg/ pneumpococcal test is negative as well His admissin blood clx were positive for Staph epi in one bottle. His work uo showed leukocytosis and ifiltrate of R lung Patient was started empirically on cefepime and Zithromax, vancomycin added He is now afebrile He remains on NC O2 co productive cough with yellowish sputum Review of Systems Except as stated in HPI: all other systems reviewed are Neg Past Family Social History Allergies: Coded Allergies: Mushroom (Unverified Allergy, Severe, Shortness of Breath, 08/18/16) *MDRO Multi-Drug Resistant Organism (Verified Adverse Reaction, Unknown, ) MRSA (hand wound) - 05/2013 MRSA PCR Screen POSITIVE - 08/18/2016 Past Medical History Hypertension Dyslipidemia Chronic low back pain Chronic narcotic use Depression Chronic diastolic heart failure Past Surgical History Vasectomy Right finger I&D for MRSA Hernia repair L3/4/L4/L5 transforaminal interbody fusion with L3-L5 post laminectomy with pedicle screw fixation and trans body cage placement Active Ordered Medications Medications where reviewed in EMR Antibiotics Include: vancomycin 2250 q 12 cefepime azithro Family History Non-Contributory. Social History No Tobacco. No ETOH. No Illicit Drugs. Physical Exam Vital Signs Vital Signs Date Time Temp Pulse Resp B/P Pulse Ox O2 Delivery O2 Flow Rate FiO2 08/19/16 14:00 18 08/19/16 12:00 94 08/19/16 12:00 98.0 94 20 118/84 97 08/19/16 10:00 90 08/19/16 08:42 96 Nasal Cannula 2.00 08/19/16 08:00 75 08/19/16 08:00 97.5 75 18 131/72 96 08/19/16 06:00 71 08/19/16 04:29 18 08/19/16 04:00 79 08/19/16 04:00 98.1 79 16 129/60 97 08/19/16 02:00 76 08/19/16 00:00 80 08/19/16 00:00 99.0 80 14 107/59 93 08/18/16 22:00 93 08/18/16 20:44 94 Nasal Cannula 3.00 08/18/16 20:00 87 08/18/16 20:00 99.2 87 16 116/69 93 Physical Exam CONSTITUTIONAL/GENERAL: This is an obese male lederly patient, in no apparent distress. TUBES/LINES/DRAINS: SKIN: No jaundice, rashes, or lesions.Skin temperature appropriate. Not diaphoretic. HEAD: Atraumatic. Normocephalic. EYES: Pupils equal and round and reactive. Extraocular motions intact. No scleral icterus. No injection or drainage. Fundi not examined. ENT: Hearing grossly normal. Nose without bleeding or purulent drainage. Oral mucosae without visible erythema, exudates, masses, or lesions. NECK: Trachea midline. Supple, nontender. No palpable thyroid enlargement or nodularity. CARDIOVASCULAR: Regular rate and rhythm without murmurs, gallops, or rubs. No JVD. Peripheral pulses symmetric. RESPIRATORY/CHEST: Symmetric, unlabored respirations. Clear to auscultation. Breath sounds equal bilaterally. No wheezes, rales, or rhonchi. GASTROINTESTINAL: Abdomen soft, non-tender, nondistended. No hepato-splenomegaly , or palpable masses. No guarding. Bowel sounds present. GENITOURINARY: Without palpable bladder distension. MUSCULOSKELETAL: Extremities without clubbing, cyanosis, or edema. No joint tenderness or effusion noted. No calf tenderness. No mottling or clubbing. BACK: well healed L spine incision no tenderness to palpation LYMPHATICS: No palpable cervical or supraclavicular adenopathy. NEUROLOGICAL: Awake and alert. Motor and sensory grossly within normal limits. Follows commands. Cognitively sharp. Moves all extremities. PSYCHIATRIC: No obvious anxiety/depression. no apparent hallucinations or other psychotic thought process. Laboratory Laboratory Tests Test 08/18/16 08/19/16 08/19/16 08/19/16 18:25 00:42 02:18 04:08 Troponin I 12.60 13.80 13.50 Lactic Acid Level 0.9 1.0 White Blood Count 17.5 15.5 Red Blood Count 3.07 3.13 Hemoglobin 8.2 8.3 Hematocrit 25.8 25.9 Mean Corpuscular Volume 84.1 82.9 Mean Corpuscular Hemoglobin 26.9 26.5 Mean Corpuscular Hemoglobin 31.9 32.0 Concent Red Cell Distribution Width 14.5 14.8 Platelet Count 230 237 Mean Platelet Volume 8.8 8.4 Activated Partial 31.4 32.0 Thromboplast Time Neutrophils (%) (Auto) 79.0 Lymphocytes (%) (Auto) 12.8 Monocytes (%) (Auto) 5.9 Eosinophils (%) (Auto) 2.1 Basophils (%) (Auto) 0.2 Neutrophils # (Auto) 12.2 Lymphocytes # (Auto) 2.0 Monocytes # (Auto) 0.9 Eosinophils # (Auto) 0.3 Basophils # (Auto) 0.0 CBC Comment DIFF FINAL Differential Comment Prothrombin Time 12.0 Prothromb Time International 1.1 Ratio Sodium Level 144 Potassium Level 4.7 Chloride Level 109 Carbon Dioxide Level 29.7 Anion Gap 5 Blood Urea Nitrogen 12 Creatinine 0.84 Estimat Glomerular Filtration 92 Rate Random Glucose 111 Calcium Level 8.6 Phosphorus Level 3.0 Magnesium Level 2.2 Total Bilirubin 0.5 Aspartate Amino Transf 86 (AST/SGOT) Alanine Aminotransferase 29 (ALT/SGPT) Alkaline Phosphatase 88 Total Protein 5.8 Albumin 2.6 Triglycerides Level 91 Cholesterol Level 102 LDL Cholesterol 45 HDL Cholesterol 39.0 Cholesterol/HDL Ratio 2.61 Test 08/19/16 08/19/16 08/19/16 08:55 11:26 17:08 Activated Partial 35.6 33.1 33.8 Thromboplast Time Date/Time Procedure Status Source Growth 08/19/16 17:14 Aerobic Blood Culture Received Blood Peripheral Pending 08/19/16 17:14 Anaerobic Blood Culture Received Blood Peripheral Pending 08/18/16 21:30 Legionella Antigen - Final Complete Urine Clean Catch PRESUMPTIVE NEGATIVE FOR LEGIONELLA P... 08/18/16 21:30 Streptococcus pneumoniae Antigen (M - Final Complete Urine Clean Catch PRESUMPTIVE NEGATIVE FOR STREPTOCOCCU... 08/18/16 09:30 Influenza Types A,B Antigen (ZA) - Final Complete Nasal Aspirate NEGATIVE FOR FLU A AND B ANTIGEN.... 08/18/16 09:05 Aerobic Blood Culture - Preliminary Resulted Blood Peripheral NO GROWTH IN 1 DAY 08/18/16 09:05 Anaerobic Blood Culture - Preliminary Resulted Blood Peripheral NO GROWTH IN 1 DAY Result Diagram: 08/19/16 0408 08/19/16 0408 Imaging 2 D echo negative for veg's, poor quality Last Impressions Chest X-Ray 08/19/16 0600 Signed Impressions: Service Date/Time: Friday, August 19, 2016 04:43 - CONCLUSION: Patchy right-sided pneumonia not significantly changed. Prosper Vaughn MD Assessment and Plan Assessment and Plan Acute febrile illness Staph epi low grade bacteremia, could be a mere contamination Less likely scenario hardware infection, but no clinical e/o infected wound and the pt clearly notices improving in pain. However if moer + blood clx and / or unxplained o/w fever, then L spine imaging studies need to be obtained R side PNA - cont current abx - obtain sputum clx - further rec's per clx results Discussed Condition With pt and at b/s Mackenzie Mata MD Aug 19, 2016 18:32
--- NOTE | 2016-08-19 18:36 | HHI.CCPN ---
Subjective Remarks/Hospital Course 66-year-old male. Date of admission 08/18/16. Past medical history includes chronic low back pain, pressure, chronic narcotic use, hypertension and dyslipidemia. Earlier this month on July 27/2017, patient underwent an L3/ 4 and L4/5 transforaminal interbody fusion with L3 through L5 decompressive laminectomy, pedicle screw fusion of L3 through 5 with trans-body cage placement at L3/4 and L4/5 secondary to degenerative disc disease with spinal stenosis and neurogenic claudication with Dr. Cuenca. Mr. Tsai was evaluated in the office after surgery, and was noted to have a small amount of postoperative clear drainage and possible infection, was placed on Keflex. The states the patient finished the Keflex and was reevaluated by Dr. Cuenca, there is no further infection according to the . The patient was doing well last night, ate dinner went to bed without difficulty. When Mr. Tsai woke this morning he was vomiting, subjective afebrile with night sweats, chills and confused. Oriented to person only not place time or year. During his ER workup was noted to have a leukocytosis of 22 ,000. Lactate 3.6 Right middle/lower lobe pneumonia. Patient was treated empirically with cefepime and Zithromax. He was also bolused 2 L normal saline. Patient is much improved currently awake and alert to person place and time. Currently thirsty and warm. Subjective 08/19: Afebrile. Troponin peaked at 0.8 downtrending currently. Denies chest pain. Activity is clear to white blood cell count is dropping. Denies chest pain, shortness of breath. Feels much better. Objective Vital Signs Date Time Temp Pulse Resp B/P Pulse Ox O2 Delivery O2 Flow Rate FiO2 08/19/16 14:00 18 08/19/16 12:00 94 08/19/16 12:00 98.0 118/84 97 08/19/16 08:42 Nasal Cannula 2.00 Intake and Output 08/18/16 08/18/16 08/19/16 08:00 16:00 00:00 Intake Total 1600 ml Output Total 1700 ml Balance -100 ml Result Diagram: 08/19/16 0408 08/19/16 0408 Other Results Microbiology Date/Time Procedure Status Source Growth 08/19/16 17:14 Aerobic Blood Culture Received Blood Peripheral Pending 08/19/16 17:14 Anaerobic Blood Culture Received Blood Peripheral Pending 08/18/16 21:30 Legionella Antigen - Final Complete Urine Clean Catch PRESUMPTIVE NEGATIVE FOR LEGIONELLA P... 08/18/16 21:30 Streptococcus pneumoniae Antigen (M - Final Complete Urine Clean Catch PRESUMPTIVE NEGATIVE FOR STREPTOCOCCU... 08/18/16 09:30 Influenza Types A,B Antigen (ZA) - Final Complete Nasal Aspirate NEGATIVE FOR FLU A AND B ANTIGEN.... 08/18/16 09:05 Aerobic Blood Culture - Preliminary Resulted Blood Peripheral NO GROWTH IN 1 DAY 08/18/16 09:05 Anaerobic Blood Culture - Preliminary Resulted Blood Peripheral NO GROWTH IN 1 DAY Imaging Last Impressions Chest X-Ray 08/19/16 0600 Signed Impressions: Service Date/Time: Monday, August 19, 2016 04:43 - CONCLUSION: Patchy right-sided pneumonia not significantly changed. Prosper Vaughn MD Objective Remarks GENERAL: 66-year-old male, resting in bed in no acute distress on room air SKIN: Warm and dry. Tattoo of bird on right shoulder. Lumbar laminectomy surgical site without drainage. No erythema. well healed HEAD: Atraumatic. Normocephalic. EYES: Pupils equal and round around 3 mm bilaterally and reactive. No scleral icterus. No injection or drainage. ENT: No nasal bleeding or discharge. Mucous membranes pink and moist. NECK: Trachea midline. No JVD. CARDIOVASCULAR: RRR. S1, S2 no S4. Without murmur RESPIRATORY: A few crackles appreciated in the right lower lobe. No wheezing. Symmetrical excursion. GASTROINTESTINAL: Abdomen soft, non-tender, nondistended. Hepatic and splenic margins not palpable. MUSCULOSKELETAL: Extremities without significant peripheral edema. No obvious deformities. NEUROLOGICAL: Awake and alert. No obvious cranial nerve deficits. Motor grossly within normal limits. Five out of 5 muscle strength in the arms and legs. Normal speech. PSYCHIATRIC: Appropriate mood and affect; insight and judgment normal. A/P Assessment and Plan Neuro/Psych: July 27/2017 status post L3/4 and L4/5 transforaminal interbody fusion, L3 through L5 decompressive laminectomy, L3 through L5 critical screw fixation L3/ 4 and L4/5 transbody cage placement secondary to degenerative disc disease, spinal stenosis with neurogenic claudication by Dr. Cuenca Chronic low back pain Depression Chronic narcotic use Dr. Cuenca/neurosurgery has seen patient today Acetaminophen for fever [place]/morphine for pain management Resume scheduled morphine sulfate 100 mg by mouth 3 times a day Continue paroxetine 40 mg by mouth daily CV: Elevated troponin Lactic acidosis History of hypertension Dyslipidemia Resumed lisinopril 20 mg by mouth daily/home medication hypertension CONTINUE lovastatin 40 mg by mouth daily for dyslipidemia. Hospital substitution Echocardiogram 2014 revealed EF 50-55%. Grade 1 diastolic dysfunction. Mildly dilated left atrium. Echocardiogram 08/18 revealed EF 55-60%. No regional wall motion abnormality. Mild TR. Seen by Dr. Guerrero. Recommended aspirin 81 mg, Lopressor 12.5 twice a day, statin. MPI when stable. Serial lactates have cleared Heparin drip will be discontinued Resp: Acute respiratory insufficiency Community-acquired pneumonia/right middle and lower lobe present on admission Nasal cannula to maintain saturations greater than equal to 92% Incentive spirometry while awake Chest x-ray 08/18 reveals right middle/lower lobe pneumonia/infiltrates. See infectious disease for antibiotic coverage Albuterol nebulizers every 6 hours and as needed Follow-up chest x-ray in a.m. GI: Heart healthy diet Protonix for GI prophylaxis Colace/as needed Senokot for bowel regimen : [place] only if indicated for accurate I's and O's in a critically ill patient Endo: Sliding-scale insulin with Accu-Cheks to maintain euglycemia/before meals and at bedtime Renal: Creatinine currently within normal limits. Accurate I's and O's Monitor urine output Heme: Leukocytosis Normocytic anemia A.m. CBC. Follow trends. Dilutional ID: Pneumonia/community-acquired present admission History of I&D right index finger MRSA Day 2 cefepime/Zithromax and Flagyl Pertinent cultures 08/18 - blood cultures 2 -1 out of 4 staph epi influenza negative, urine Legionella pneumococcal antigen and sputum all pending Infectious disease consulted per request of etiology MSK: Chronic low back pain PT evaluate and treat FEN: Replace electrolytes as clinically indicated Access - Utilize peripheral IV. Central line if indicated Prophylaxis - GI - Protonix - DVT - SCD/Lovenox subcutaneous Critical Care: The total care time was 35 minutes. Time to perform other separately billable procedures was not included in the critical care time. Patient is stable from a critical care medicine standpoint. We'll assign care to hospitalist in a.m. 08/20. Transferred to [facility] Silviano Harris MD Aug 19, 2016 18:36
[2016-08-19] MEDS: VANCOMYCIN INJ 2,250 MG in SODIUM CHLORID 0.9% 500 ML INJ 500 ML IV SCH (19:12)
[2016-08-19] MEDS: SODIUM CHLOR 0.45% 1000 ML INJ 1,000 ML IV SCH (19:33)
[2016-08-19] MEDS: MUPIROCIN 2% OINT 1 APPLIC/GM SYR EACH NARE SCH (20:07)
[2016-08-19] MEDS: METOPROLOL TARTRATE 25 MG TAB PO SCH (20:07)
[2016-08-19] MEDS: PRAVASTATIN SOD 40 MG TAB PO SCH (20:07)
[2016-08-20] VITALS (23 sets, daily range): BP systolic 151–179; BP diastolic 79–93; PULSE 80–106; RESP 18–20; TEMP 98.6–100.1; O2SAT 90–97
[2016-08-20] MEDS: CEFEPIME INJ 2,000 MG in SODIUM CHLORIDE 0.9% INJ 100 ML IV SCH ×3 (01:59→17:16)
[2016-08-20] MEDS: metroNIDAZOLE 500 MG INJ 100 ML IV SCH ×3 (03:47→22:31)
[2016-08-20] MEDS: CHLORHEXIDINE GLUCONATE 2 % 1 PACK (2 CLOTHS) TOP SCH (03:59)
[2016-08-20] MEDS: RESP: ALBUTEROL 2.5 MG/3 ML NEB (SCH) INH ×4 (04:33→22:00)
[2016-08-20] MEDS: ACETAMINOPHEN/HYDROcodone 325 MG/10 MG TAB PO PRN ×2 (04:48→22:26)
[2016-08-20] MEDS: VANCOMYCIN INJ 2,250 MG in SODIUM CHLORID 0.9% 500 ML INJ 500 ML IV SCH ×2 (04:52→17:16)
--- NOTE | 2016-08-20 08:27 | HHI.PR ---
Subjective Remarks Afebrile. Denies chest pain. Some shortness of breath when lying flat. Denies n/ v/d/c. Overall, feels much better. Asking for less cords so he can ambulate more easily. Objective Vital Signs Date Time Temp Pulse Resp B/P Pulse Ox O2 Delivery O2 Flow Rate FiO2 08/20/16 07:00 98.6 96 18 156/92 92 08/20/16 06:00 90 08/20/16 05:00 88 08/20/16 04:00 88 08/20/16 03:57 94 18 151/81 93 08/20/16 03:00 88 08/20/16 02:00 86 08/20/16 01:00 82 08/20/16 00:00 86 08/19/16 23:30 90 08/19/16 23:30 98.7 87 18 150/73 93 08/19/16 22:00 84 08/19/16 20:46 95 21 08/19/16 20:07 22 08/19/16 20:00 78 08/19/16 20:00 98.4 88 13 151/73 92 08/19/16 18:00 92 08/19/16 16:00 98.7 92 16 109/55 97 08/19/16 16:00 82 08/19/16 14:00 81 08/19/16 12:00 94 08/19/16 12:00 98.0 94 20 118/84 97 08/19/16 10:00 90 08/19/16 08:42 96 Nasal Cannula 2.00 I/O 08/19/16 08/19/16 08/19/16 08/20/16 08/20/16 08/20/16 07:00 15:00 23:00 07:00 15:00 23:00 Intake Total 923 ml 2154 ml 1529 ml 1100 ml Output Total 1100 ml 1600 ml 700 ml 900 ml Balance -177 ml 554 ml 829 ml 200 ml Intake Oral 200 ml 800 ml 800 ml 300 ml IV Total 723 ml 1354 ml 729 ml 800 ml Output Urine Total 1100 ml 1600 ml 700 ml 900 ml Result Diagram: 08/19/1640708/19/16407 Imaging Last Impressions Chest X-Ray 08/19/16 06 Signed Impressions: Service Date/Time: Friday, August 19, 2016 04:43 - CONCLUSION: Patchy right-sided pneumonia not significantly changed. Prosper Vaughn MD Objective Remarks GENERAL: 66-year-old male, resting in bed in no acute distress, on room air SKIN: Warm and dry. Tattoo of bird on right shoulder. HEAD: Atraumatic. Normocephalic. EYES: Pupils equal and round & reactive. No scleral icterus. No injection or drainage. ENT: No nasal bleeding or discharge. Mucous membranes pink and moist. NECK: Trachea midline. CARDIOVASCULAR: RRR without murmur RESPIRATORY: CTAB. No wheezing. Symmetrical excursion. GASTROINTESTINAL: +BS. Abdomen soft, non-tender, nondistended. MUSCULOSKELETAL: Extremities without edema. No obvious deformities. NEUROLOGICAL: Awake and alert. No obvious cranial nerve deficits. Motor grossly within normal limits. Normal speech. PSYCHIATRIC: Appropriate mood and affect; insight and judgment normal. A/P Assessment and Plan 66-year-old male. Date of admission 08/18/16. On admission was vomiting, febrile with night sweats, chills and confused. WBC 22,000, Lactate 3.6 & CXR with Right middle/lower lobe pneumonia. Cefepime and Zithromax given. IVF with 2 L normal saline bolus. Currently much improved currently awake and alert to person place and time. Patient was stable from a critical care medicine standpoint, transferred to [facility] and to hospitalist a.m. of 08/20. Chronic low back pain, pressure Chronic narcotic use Hypertension Dyslipidemia. July 2016: L3/4 and L4/5 transforaminal interbody fusion with L3 through L5 decompressive laminectomy, pedicle screw fusion of L3 through 5 with trans-body cage placement at L3/4 and L4/5 secondary to degenerative disc disease with spinal stenosis and neurogenic claudication with Dr. Cuenca. Dr. Cuenca/neurosurgery was consulted and evaluated patient. Continue Acetaminophen for fever. [place]/morphine for pain management Resume scheduled morphine sulfate 100 mg by mouth 3 times a day. Continue paroxetine 40 mg by mouth daily Dr. Guerrero/Cardiology consulted, evaluated patient. Recommended aspirin 81 mg, Lopressor 12.5 twice a day, statin. MPI when stable. HTN/CAD: Resumed lisinopril 20 mg daily Lovastatin 40 mg by mouth daily Echocardiogram 2014 revealed EF 50-55%. Grade 1 diastolic dysfunction. Mildly dilated left atrium. Echocardiogram 08/18 revealed EF 55-60%. No regional wall motion abnormality. Mild TR. Troponin elevated, seen by Cardiology. Likely 2/2 sepsis. Medical management at this time. Acute respiratory insufficiency: Community-acquired pneumonia/right middle and lower lobe present on admission Lactate now normal Nasal cannula to maintain saturations greater than equal to 92% Incentive spirometry while awake Albuterol nebulizers every 6 hours and as needed Chest x-ray 08/18 reveals right middle/lower lobe pneumonia/infiltrates. Follow-up chest x-ray 08/19 without change. DM: Sliding-scale insulin with Accu-Cheks to maintain euglycemia/before meals and at bedtime Renal insufficiency: Creatinine currently within normal limits. Accurate I's and O's Monitor urine output Leukocytosis, improving Normocytic anemia A.m. CBC. Improving Follow trends. Dilutional ID following: Pneumonia/community-acquired present admission History of I&D right index finger MRSA Day 4 cefepime/Zithromax and Flagyl Pertinent cultures 08/18 - blood cultures 2 -1 out of 4 staph epi influenza negative, urine Legionella pneumococcal antigen negative and sputum pending PT evaluate and treat Heart healthy diet Protonix for GI prophylaxis Colace/as needed Senokot for bowel regimen DVT - SCD/Lovenox subcutaneous Dispo: stable for transfer to floor today Portia Kapadia MD Aug 20, 2016 08:27
[2016-08-20] MEDS: SODIUM CHLORIDE 0.9% FLUSH 10 ML FLUSH IV FLUSH SCH ×2 (09:00→21:00)
[2016-08-20] MEDS: MUPIROCIN 2% OINT 1 APPLIC/GM SYR EACH NARE SCH ×2 (09:00→21:00)
[2016-08-20] MEDS: MORPHINE SULFATE 100 MG CONTROLLED RELEASE TAB PO SCH ×3 (09:26→17:16)
[2016-08-20] MEDS: PARoxetine HCL 20 MG TAB PO SCH (09:27)
[2016-08-20] MEDS: METOPROLOL TARTRATE 25 MG TAB PO SCH ×2 (09:27→22:22)
[2016-08-20] MEDS: LISINOPRIL 20 MG TAB PO SCH (09:27)
[2016-08-20] MEDS: PANTOPRAZOLE SOD 40 MG DELAYED RELEASE TAB PO SCH (09:28)
[2016-08-20] MEDS: ASPIRIN 81 MG CHEW TAB PO SCH (09:28)
[2016-08-20] MEDS: DOCUSATE SODIUM 100 MG CAP PO SCH ×2 (09:28→22:22)
[2016-08-20 09:37] LABS: AUTOMATED NEUTROPHIL # 10.1 TH/MM3 (1.8-7.7); BASOPHIL # 0.1 TH/MM3 (0-0.2); BASOPHIL % 0.4 % (0.0-2.0); EOSINOPHIL # 0.3 TH/MM3 (0-0.4); EOSINOPHIL % 2.1 % (0.0-4.0); HEMATOCRIT 27.5 % (39.0-51.0); HEMO FLAGS DIFF FINAL; LYMPH % 9.6 % (9.0-44.0); LYMPHOCYTE # 1.2 TH/MM3 (1.0-4.8); MEAN CELL VOLUME 81.8 FL (80.0-100.0); MONO % 5.9 % (0.0-8.0); PLATELET COUNT 224 TH/MM3 (150-450); RED BLOOD COUNT 3.36 MIL/MM3 (4.50-5.90); RED CELL DISTRIBUTION WIDTH 14.6 % (11.6-17.2); WHITE BLOOD COUNT 12.3 TH/MM3 (4.0-11.0)
[2016-08-20 09:47] LABS: ALKALINE PHOSPHATASE 98 U/L (45-117); ALT (GPT) 28 U/L (12-78); ANION GAP 10 MEQ/L (5-15); AST (GOT) 45 U/L (15-37); BICARBONATE 25.3 MEQ/L (21.0-32.0); CHLORIDE 109 MEQ/L (98-107); GLOMERULAR FILTRATION RATE 101 ML/MIN (>89); MAGNESIUM 2.2 MG/DL (1.5-2.5); POTASSIUM 4.3 MEQ/L (3.5-5.1); SODIUM (NA) 144 MEQ/L (136-145); TOTAL BILIRUBIN ADULT 0.6 MG/DL (0.2-1.0)
[2016-08-20 09:49] LABS: BLOOD UREA NITROGEN 8 MG/DL (7-18)
[2016-08-20] MEDS: AZITHROMYCIN INJ 500 MG in SODIUM CHLOR 0.9% 250 ML INJ 250 ML IV SCH (11:28)
[2016-08-20] MEDS: SODIUM CHLOR 0.45% 1000 ML INJ 1,000 ML IV SCH (17:17)
[2016-08-20] MEDS: PRAVASTATIN SOD 40 MG TAB PO SCH (22:22)
[2016-08-21] VITALS (9 sets, daily range): BP systolic 128–161; BP diastolic 64–82; PULSE 84–90; RESP 17–20; TEMP 97.5–98.4; O2SAT 91–95
[2016-08-21] MEDS: CEFEPIME INJ 2,000 MG in SODIUM CHLORIDE 0.9% INJ 100 ML IV SCH ×3 (01:28→17:44)
[2016-08-21] MEDS: CHLORHEXIDINE GLUCONATE 2 % 1 PACK (2 CLOTHS) TOP SCH (03:58)
[2016-08-21] MEDS: RESP: ALBUTEROL 2.5 MG/3 ML NEB (SCH) INH ×4 (04:00→20:47)
[2016-08-21] MEDS ORDERED: PHARMACY ORDERED LAB ONE (04:45)
[2016-08-21] MEDS: VANCOMYCIN INJ 2,250 MG in SODIUM CHLORID 0.9% 500 ML INJ 500 ML IV SCH (06:11)
[2016-08-21] MEDS: metroNIDAZOLE 500 MG INJ 100 ML IV SCH ×3 (06:11→21:34)
[2016-08-21 07:19] LABS: AUTOMATED NEUTROPHIL # 7.1 TH/MM3 (1.8-7.7); BASOPHIL % 0.4 % (0.0-2.0); EOSINOPHIL # 0.3 TH/MM3 (0-0.4); EOSINOPHIL % 3.4 % (0.0-4.0); HEMATOCRIT 27.3 % (39.0-51.0); HEMO FLAGS DIFF FINAL; LYMPH % 15.4 % (9.0-44.0); LYMPHOCYTE # 1.5 TH/MM3 (1.0-4.8); MEAN CELL VOLUME 82.3 FL (80.0-100.0); MEAN CORPUSCULAR HEMOGLOBIN 26.9 PG (27.0-34.0); MEAN CORPUSCULAR HGB CONC 32.7 % (32.0-36.0); MONO % 7.4 % (0.0-8.0); NEUT % 73.4 % (16.0-70.0); PLATELET COUNT 244 TH/MM3 (150-450); RED BLOOD COUNT 3.32 MIL/MM3 (4.50-5.90); WHITE BLOOD COUNT 9.6 TH/MM3 (4.0-11.0)
[2016-08-21 07:34] LABS: ALKALINE PHOSPHATASE 96 U/L (45-117); ALT (GPT) 21 U/L (12-78); ANION GAP 5 MEQ/L (5-15); AST (GOT) 23 U/L (15-37); BICARBONATE 30.6 MEQ/L (21.0-32.0); BLOOD UREA NITROGEN 7 MG/DL (7-18); CHLORIDE 107 MEQ/L (98-107); GLOMERULAR FILTRATION RATE 89 ML/MIN (>89); MAGNESIUM 2.1 MG/DL (1.5-2.5); POTASSIUM 4.4 MEQ/L (3.5-5.1); SODIUM (NA) 143 MEQ/L (136-145); TOTAL BILIRUBIN ADULT 0.6 MG/DL (0.2-1.0); VANCOMYCIN TROUGH 20.2 MCG/ML (5.0-10.0)
[2016-08-21] MEDS: SODIUM CHLORIDE 0.9% FLUSH 10 ML FLUSH IV FLUSH SCH ×2 (08:07→21:00)
--- NOTE | 2016-08-21 08:07 | HHI.PR ---
Subjective Remarks Afebrile. Denies chest pain or shortness of breath. SOB when walking in room without O2 on. Denies n/v/d/c. Overall, feels much better. IV on right hand infiltrated and was painful, and was changed out. Objective Vital Signs Date Time Temp Pulse Resp B/P Pulse Ox O2 Delivery O2 Flow Rate FiO2 08/21/16 04:53 93 21 08/21/16 04:00 97.5 88 20 161/82 92 08/21/16 00:00 98.1 84 20 128/64 94 08/20/16 22:18 101 08/20/16 20:00 99.8 104 20 159/79 97 08/20/16 18:00 106 08/20/16 17:00 94 08/20/16 16:00 94 08/20/16 15:00 100.1 100 18 179/93 90 08/20/16 15:00 89 08/20/16 14:00 86 08/20/16 13:00 88 08/20/16 12:00 84 08/20/16 11:23 99.6 88 18 164/87 94 08/20/16 11:00 87 08/20/16 10:00 80 08/20/16 09:00 94 I/O 08/20/16 08/20/16 08/20/16 08/21/16 08/21/16 08/21/16 07:00 15:00 23:00 07:00 15:00 23:00 Intake Total 1100 ml 3672 ml 370 ml Output Total 900 ml 1750 ml 300 ml Balance 200 ml 1922 ml 70 ml Intake Oral 300 ml 1440 ml 0 ml IV Total 800 ml 2232 ml 370 ml Output Urine Total 900 ml 1750 ml 300 ml # Voids 1 # Bowel Movements 0 1 Result Diagram: 08/21/16 0633 08/21/16 0633 Imaging Last Impressions Chest X-Ray 08/19/16 06 Signed Impressions: Service Date/Time: Friday, August 19, 2016 04:43 - CONCLUSION: Patchy right-sided pneumonia not significantly changed. Prosper Vaughn MD Objective Remarks GENERAL: 66-year-old male, resting in bed in no acute distress, on room air SKIN: Warm and dry. Tattoo of bird on right shoulder. HEAD: Atraumatic. Normocephalic. EYES: Pupils equal and round & reactive. No scleral icterus. No injection or drainage. ENT: No nasal bleeding or discharge. Mucous membranes pink and moist. NECK: Trachea midline. CARDIOVASCULAR: RRR without murmur RESPIRATORY: CTAB. No wheezing. Symmetrical excursion. GASTROINTESTINAL: +BS. Abdomen soft, non-tender, nondistended. MUSCULOSKELETAL: Right hand TTP with mild edema 2/2 IV infiltration. Other extremities without edema. No obvious deformities. NEUROLOGICAL: Awake and alert. No obvious cranial nerve deficits. Motor grossly within normal limits. Normal speech. PSYCHIATRIC: Appropriate mood and affect; insight and judgment normal. A/P Assessment and Plan A/P Chronic low back pain, pressure Chronic narcotic use Hypertension Dyslipidemia. July 2016: L3/4 and L4/5 transforaminal interbody fusion with L3 through L5 decompressive laminectomy, pedicle screw fusion of L3 through 5 with trans-body cage placement at L3/4 and L4/5 secondary to degenerative disc disease with spinal stenosis and neurogenic claudication with Dr. Cuenca. Dr. Cuenca/neurosurgery following. Acetaminophen for fever. [place]/morphine for pain management Scheduled home morphine sulfate 100 mg by mouth 3 times a day. Continue home paroxetine 40 mg by mouth daily Dr. Guerrero/Cardiology consulted. Troponin elevated. Likely 2/2 sepsis. Medical management at this time. Recommended aspirin 81 mg, Lopressor 12.5 twice a day , statin. MPI when stable. HTN/CAD: Lisinopril 20 mg daily Lovastatin 40 mg by mouth daily Echocardiogram 2014 revealed EF 50-55%. Grade 1 diastolic dysfunction. Mildly dilated left atrium. Echocardiogram 08/18 revealed EF 55-60%. No regional wall motion abnormality. Mild TR. Acute respiratory insufficiency: Community-acquired pneumonia/right middle and lower lobe Lactate now normal Nasal cannula to maintain saturations greater than equal to 92% Incentive spirometry while awake Albuterol nebulizers every 6 hours and as needed Chest x-ray 08/18 reveals right middle/lower lobe pneumonia/infiltrates. Follow- up chest x-ray 08/19 without change. DM: Sliding-scale insulin with Accu-Cheks to maintain euglycemia/before meals and at bedtime Renal insufficiency: Creatinine currently within normal limits. Accurate I's and O's Monitor urine output Leukocytosis, resolved Normocytic anemia A.m. CBC. Follow trends. Dilutional Right hand pain 2/2 IV infiltration, now changed to another site ID following: Pneumonia/community-acquired present admission History of I&D right index finger MRSA Day 5 (08/17-) cefepime/Zithromax and Flagyl Pertinent cultures 08/18 - blood cultures 2 -1 out of 4 staph epi 08/19 - NGTD 2 days Influenza negative Urine Legionella & pneumococcal antigen negative Sputum negative PT evaluate and treat Heart healthy diet Protonix for GI prophylaxis Colace/as needed Senokot for bowel regimen DVT - SCD/Lovenox subcutaneous Dispo: Stable. Continue above medical management at this time. Await recs for abx from Portia Downey MD Aug 21, 2016 08:07
[2016-08-21] MEDS: DOCUSATE SODIUM 100 MG CAP PO SCH ×2 (08:08→21:00)
[2016-08-21] MEDS: ASPIRIN 81 MG CHEW TAB PO SCH (08:08)
[2016-08-21] MEDS: MUPIROCIN 2% OINT 1 APPLIC/GM SYR EACH NARE SCH ×2 (08:08→21:00)
[2016-08-21] MEDS: PANTOPRAZOLE SOD 40 MG DELAYED RELEASE TAB PO SCH (08:08)
[2016-08-21] MEDS: PARoxetine HCL 20 MG TAB PO SCH (08:09)
[2016-08-21] MEDS: LISINOPRIL 20 MG TAB PO SCH (08:09)
[2016-08-21] MEDS: METOPROLOL TARTRATE 25 MG TAB PO SCH ×2 (08:09→21:31)
[2016-08-21] MEDS: ACETAMINOPHEN/HYDROcodone 325 MG/10 MG TAB PO PRN ×2 (08:56→21:30)
[2016-08-21] MEDS: MORPHINE SULFATE 100 MG CONTROLLED RELEASE TAB PO SCH ×3 (09:53→17:43)
[2016-08-21] MEDS: AZITHROMYCIN INJ 500 MG in SODIUM CHLOR 0.9% 250 ML INJ 250 ML IV SCH (11:39)
[2016-08-21] MEDS: SODIUM CHLOR 0.45% 1000 ML INJ 1,000 ML IV SCH (17:44)
[2016-08-21] MEDS: PRAVASTATIN SOD 40 MG TAB PO SCH (21:31)
[2016-08-21] MEDS: VANCOMYCIN INJ 1,900 MG in SODIUM CHLORID 0.9% 500 ML INJ 500 ML IV SCH (21:34)
[2016-08-22] VITALS (8 sets, daily range): BP systolic 148–180; BP diastolic 74–96; PULSE 79–101; RESP 17–22; TEMP 95.3–99.2; O2SAT 92–95
[2016-08-22] MEDS: CEFEPIME INJ 2,000 MG in SODIUM CHLORIDE 0.9% INJ 100 ML IV SCH ×3 (02:09→17:31)
[2016-08-22] MEDS: ACETAMINOPHEN/HYDROcodone 325 MG/10 MG TAB PO PRN ×4 (02:10→21:06)
[2016-08-22] MEDS: CHLORHEXIDINE GLUCONATE 2 % 1 PACK (2 CLOTHS) TOP SCH (04:00)
[2016-08-22] MEDS: RESP: ALBUTEROL 2.5 MG/3 ML NEB (SCH) INH ×3 (04:29→15:02)
[2016-08-22] MEDS: metroNIDAZOLE 500 MG INJ 100 ML IV SCH ×3 (05:37→21:02)
[2016-08-22 05:57] LABS: HEMATOCRIT 27.1 % (39.0-51.0); MEAN CELL VOLUME 81.6 FL (80.0-100.0); MEAN CORPUSCULAR HEMOGLOBIN 26.8 PG (27.0-34.0); MEAN CORPUSCULAR HGB CONC 32.8 % (32.0-36.0); PLATELET COUNT 229 TH/MM3 (150-450); RED BLOOD COUNT 3.32 MIL/MM3 (4.50-5.90); REVIEW FLAG FINAL; WHITE BLOOD COUNT 8.6 TH/MM3 (4.0-11.0)
--- NOTE | 2016-08-22 07:40 | HHI.PR ---
Subjective Remarks resting comfortably with no distress. no fever. pain is fairly controlled. Objective Vitals Vital Signs Date Time Temp Pulse Resp B/P Pulse Ox O2 Delivery O2 Flow Rate FiO2 08/22/16 04:32 92 Nasal Cannula 2.00 08/22/16 00:00 98.0 84 18 148/74 94 08/21/16 20:51 91 21 08/21/16 20:00 97.8 86 20 152/70 93 08/21/16 16:00 98.4 88 18 148/66 95 08/21/16 12:00 97.8 85 18 145/69 95 08/21/16 09:44 92 Nasal Cannula 2.00 08/21/16 08:00 98.2 90 17 146/67 94 I/O 08/21/16 08/21/16 08/21/16 08/22/16 08/22/16 08/22/16 07:00 15:00 23:00 07:00 15:00 23:00 Intake Total 370 ml 1076 ml 1485 ml 976 ml Output Total 300 ml 975 ml 650 ml 600 ml Balance 70 ml 101 ml 835 ml 376 ml Intake Oral 0 ml 120 ml 480 ml 220 ml IV Total 370 ml 956 ml 1005 ml 756 ml Output Urine Total 300 ml 975 ml 650 ml 600 ml # Voids 1 # Bowel Movements 1 0 0 0 Result Diagram: 08/22/16 0520 08/21/16 0633 Imaging Last Impressions Chest X-Ray 08/19/16 0600 Signed Impressions: Service Date/Time: Friday, August 19, 2016 04:43 - CONCLUSION: Patchy right-sided pneumonia not significantly changed. Prosper Vaughn MD Objective Remarks GENERAL: This is a well-nourished, well-developed patient, in no apparent distress. CARDIOVASCULAR: Regular rate and regular rhythm without murmurs, gallops, or rubs. RESPIRATORY: Clear to auscultation. Breath sounds equal bilaterally. No wheezes , rales, or rhonchi. GASTROINTESTINAL: Abdomen soft, non-tender, nondistended. Normal, active bowel sounds MUSCULOSKELETAL: Extremities without clubbing, cyanosis, or edema. NEURO: Alert & Oriented x4 to person, place, time, situation. Moves all ext x4 Procedures none Medications and IVs Current Medications Acetaminophen 650 mg 650 mg ONCE ONCE PO Last administered on 08/18/16 09:49 ; Start 08/18/16 at 09:15; Stop 08/18/16 at 09:16; Status DC Sodium Chloride 1,000 ml @ 1,000 mls/hr Q1H ONCE IV Last administered on 09:48; Start 08/18/16 at 09:01; Stop 08/18/16 at 10:00; Status DC Sodium Chloride 1,000 ml @ 1,000 mls/hr Q1H ONCE IV Last administered on 09:48; Start 08/18/16 at 09:01; Stop 08/18/16 at 10:00; Status DC Sodium Chloride 1,000 ml @ 1,000 mls/hr Q1H ONCE IV Last administered on 09:48; Start 08/18/16 at 09:01; Stop 08/18/16 at 10:00; Status DC Sodium Chloride 600 ml @ 1,000 mls/hr Q36M ONCE IV Last administered on 09:48; Start 08/18/16 at 09:01; Stop 08/18/16 at 09:36; Status DC Cefepime HCl 2000 mg/Sodium Chloride 100 ml @ 200 mls/hr ONCE ONCE IV Last administered on 08/18/16 09:51; Start 08/18/16 at 09:15; Stop 08/18/16 at 09:44 ; Status DC Azithromycin/ Sodium Chloride (Zithromax Inj/ NS 250 ml Inj) 250 ml @ 250 mls/ hr ONCE ONCE IV Last administered on 08/18/16 11:19; Start 08/18/16 at 11:00 ; Stop 08/18/16 at 11:59; Status DC Albuterol/ Ipratropium (Duoneb Neb) 1 ampule ONCE ONCE NEB Last administered on 08/18/16 10:56; Start 08/18/16 at 11:00; Stop 08/18/16 at 11:01; Status DC Acetaminophen/ Hydrocodone Bitart ([place] 10-325 Mg) 1 tab Q4HR PRN PO PAIN 6- 10 Last administered on 08/22/16 06:31; Start 08/18/16 at 12:00 Pravastatin Sodium (Pravachol) 40 mg HS PO Last administered on 08/21/16 21:31 ; Start 08/18/16 at 21:00 Paroxetine HCl (Paxil) 40 mg DAILY PO Last administered on 08/21/16 08:09; Start 08/19/16 at 09:00 Morphine Sulfate 100 mg 100 mg TID PO Last administered on 08/21/16 17:43; Start 08/18/16 at 13:00 Cefepime HCl 2000 mg/Sodium Chloride 100 ml @ 200 mls/hr Q8H IV Last administered on 08/22/16 02:09; Start 08/18/16 at 17:00 Azithromycin 500 mg/Sodium Chloride 250 ml @ 250 mls/hr Q24H IV Last administered on 08/21/16 11:39; Start 08/19/16 at 11:00; Stop 08/21/16 at 13:54 ; Status DC Metronidazole 100 ml @ 100 mls/hr Q8H IV Last administered on 08/22/16 05:37; Start 08/18/16 at 13:00 Sodium Chloride (NS 1000 ml Inj) 1,000 ml @ 84 mls/hr [id number] IV Last administered on 08/19/16 08:01; Start 08/18/16 at 11:56; Stop 08/19/16 at 18:32 ; Status DC Sodium Chloride (NS Flush) 2 ml UNSCH PRN IV FLUSH FLUSH AFTER USING IV ACCESS ; Start 08/18/16 at 12:00 Sodium Chloride (NS Flush) 2 ml BID IV FLUSH Last administered on 08/21/16 08: 07; Start 08/18/16 at 21:00 Acetaminophen (Tylenol) 650 mg Q6H PRN PO FEVER >101F; Start 08/18/16 at 12:00 Acetaminophen/ Hydrocodone Bitart ([place] 5-325 Mg) 1 tab Q4H PRN PO PAIN SCALE 1 TO 5; Start 08/18/16 at 12:00 Morphine Sulfate (Morphine Inj) 2 mg Q2H PRN IV PAIN SCALE 6 TO 10 Last administered on 08/19/16 04:13; Start 08/18/16 at 12:00 Pantoprazole Sodium (Protonix) 40 mg DAILY PO Last administered on 08/21/16 08 :08; Start 08/19/16 at 09:00 Ondansetron HCl (Zofran Inj) 4 mg Q6H PRN IV NAUSEA OR VOMITING Last administered on 08/20/16 13:16; Start 08/18/16 at 12:00 Docusate Sodium (Colace) 100 mg BID PO Last administered on 08/21/16 08:08; Start 08/18/16 at 21:00 Sennosides (Senokot) 17.2 mg Q12H PRN PO CONSTIPATION; Start 08/18/16 at 12:00 Albuterol Sulfate (Albuterol Neb) 2.5 mg Q6HR NEB INH Last administered on 08/22 04:29; Start 08/18/16 at 16:00 Albuterol Sulfate (Albuterol Neb) 2.5 mg Q2HR NEB PRN INH SOB/WHEEZING; Start 08/18/16 at 12:00 Miscellaneous Information 1 [id number] XX ; Start 08/18/16 at 12:00 Chlorhexidine Gluconate (Chlorhexidine 2% Cloth) 3 pack Taper DAILY@04 TOP Last administered on 08/19/16 04:00; Start 08/19/16 at 04:00; Stop 08/15/17 at 03:59 Chlorhexidine Gluconate 3 pack 3 pack UNSCH PRN TOP HYGIENIC CARE; Start at 12:00 Sodium Chloride 1,000 ml @ 999 mls/hr BOLUS ONCE IV ; Start 08/18/16 at 16:30 ; Stop 08/18/16 at 17:30; Status DC Sodium Chloride (1/2 NS 1000 ml Inj) 1,000 ml @ 999 mls/hr BOLUS ONCE IV Last administered on 08/20/16 17:17; Start 08/18/16 at 16:30; Stop 08/18/16 at 17:30; Status DC Aspirin (Aspirin) 325 mg ONCE ONCE PO Last administered on 08/18/16 17:30; Start 08/18/16 at 17:30; Stop 08/18/16 at 17:31; Status DC Aspirin (Aspirin) 325 mg DAILY PO Last administered on 08/19/16 07:55; Start 08/19/16 at 09:00; Stop 08/19/16 at 15:21; Status DC Metoprolol Tartrate (Lopressor Inj) 5 mg Q6HR IV PUSH Last administered on 08/19 12:00; Start 08/18/16 at 18:00; Stop 08/19/16 at 15:21; Status DC Lisinopril 20 mg 20 mg DAILY PO Last administered on 08/21/16 08:09; Start at 09:00 Heparin Sodium/ Dextrose (Heparin-D5W Inj) 250 ml @ 0 mls/hr TITRATE IV Last administered on 08/19/16 04:03; Start 08/19/16 at 01:45; Stop 08/19/16 at 15:21 ; Status DC Aspirin (Aspirin Chew) 81 mg DAILY PO Last administered on 08/21/16 08:08; Start 08/20/16 at 09:00 Metoprolol Tartrate (Lopressor) 12.5 mg Q12HR PO Last administered on 21:31; Start 08/19/16 at 21:00 Mupirocin 1 applic 1 applic Taper BID EACH NARE Last administered on 08/21/16 21:00; Start 08/19/16 at 21:00; Stop 08/15/17 at 20:59 Pharmacy Profile Note (Vancomycin Consult Pharmacy) 0 ml @ 0 mls/hr UNSCH OTHER ; Start 08/19/16 at 15:30 Miscellaneous 1 ea 1 ea UNSCH PRN OTHER SEE LABEL COMMENTS; Start 08/19/16 at 15:30 Vancomycin HCl/ Sodium Chloride (Vancomycin Inj/ NS 500 ml Inj) 522.5 ml @ 250 mls/hr Q12H IV Last administered on 08/21/16 06:11; Start 08/19/16 at 17:00; Stop 08/21/16 at 09:48; Status DC Miscellaneous Information SPECIFIC LAB TO BE DRAWN:VANCO TROUGH DATE TO... ONCE ONCE .XX Last administered on 08/21/16 04:45; Start 08/21/16 at 04:45; Stop 08/21/16 at 04:46; Status DC Sodium Chloride 1,000 ml @ 42 mls/hr [id number] IV Last administered on 17:44; Start 08/19/16 at 18:30 Vancomycin HCl/ Sodium Chloride (Vancomycin Inj/ NS 500 ml Inj) 519 ml @ 250 mls/hr Q12H IV Last administered on 08/21/16 21:34; Start 08/21/16 at 20:00 Miscellaneous Information SPECIFIC LAB TO BE DRAWN:VANCOMY... ONCE ONCE .XX ; Start 08/23/16 at 07:45; Stop 08/23/16 at 07:46 Azithromycin (Zithromax) 500 mg Q12H PO ; Start 08/22/16 at 11:00 A/P Assessment and Plan A/P Chronic low back pain Chronic narcotic use Hypertension Dyslipidemia. July 2016: L3/4 and L4/5 transforaminal interbody fusion with L3 through L5 decompressive laminectomy, pedicle screw fusion of L3 through 5 with trans-body cage placement at L3/4 and L4/5 secondary to degenerative disc disease with spinal stenosis and neurogenic claudication with Dr. Cuenca. Dr. Cuenca/neurosurgery following. continue pain control. Troponin elevated. Likely 2/2 sepsis. cardiology consulted and recomended medical management at this time. Recommended aspirin 81 mg, Lopressor 12.5 twice a day, statin. MPI when stable. HTN/CAD: Lisinopril 20 mg daily Lovastatin 40 mg by mouth daily Echocardiogram 08/18 revealed EF 55-60%. No regional wall motion abnormality. Mild TR. Acute respiratory insufficiency-resolved. Community-acquired pneumonia/right middle and lower lobe Lactate now normal continue antibiotics and neb treatment. Nasal cannula to maintain saturations greater than equal to 92% Incentive spirometry while awake Chest x-ray 08/18 reveals right middle/lower lobe pneumonia/infiltrates. Follow- up chest x-ray 08/19 without change. DM: Sliding-scale insulin with Accu-Cheks to maintain euglycemia/before meals and at bedtime Renal insufficiency: Creatinine currently within normal limits. Accurate I's and O's Monitor urine output Leukocytosis, resolved Normocytic anemia- H/H stable. Follow trends. Dilutional ID following: Pneumonia/community-acquired present admission History of I&D right index finger MRSA continue abx Pertinent cultures 08/18 - blood cultures 2 -1 out of 4 staph epi 08/19 - NGTD 2 days Influenza negative Urine Legionella & pneumococcal antigen negative Sputum negative PT evaluate and treat Heart healthy diet Protonix for GI prophylaxis Colace/as needed Senokot for bowel regimen DVT - SCD/Lovenox subcutaneous Discharge Planning when cleared by ID, neurosurgery and cardiology. Cierra Arriaga MD August 22, 2016 07:40
[2016-08-22] MEDS: VANCOMYCIN INJ 1,900 MG in SODIUM CHLORID 0.9% 500 ML INJ 500 ML IV SCH ×2 (08:19→20:59)
[2016-08-22] MEDS: ASPIRIN 81 MG CHEW TAB PO SCH (08:21)
[2016-08-22] MEDS: DOCUSATE SODIUM 100 MG CAP PO SCH ×2 (08:21→21:00)
[2016-08-22] MEDS: PANTOPRAZOLE SOD 40 MG DELAYED RELEASE TAB PO SCH (08:21)
[2016-08-22] MEDS: PARoxetine HCL 20 MG TAB PO SCH (08:21)
[2016-08-22] MEDS: LISINOPRIL 20 MG TAB PO SCH (08:21)
[2016-08-22] MEDS: METOPROLOL TARTRATE 25 MG TAB PO SCH ×2 (08:21→21:04)
[2016-08-22] MEDS: MORPHINE SULFATE 100 MG CONTROLLED RELEASE TAB PO SCH ×3 (08:21→17:31)
[2016-08-22] MEDS: MUPIROCIN 2% OINT 1 APPLIC/GM SYR EACH NARE SCH ×2 (09:00→21:00)
[2016-08-22] MEDS: SODIUM CHLORIDE 0.9% FLUSH 10 ML FLUSH IV FLUSH SCH ×2 (09:00→21:00)
[2016-08-22] MEDS: AZITHROMYCIN 250 MG TAB PO SCH ×2 (11:02→22:18)
--- NOTE | 2016-08-22 11:16 | HHI.NSPN ---
History Chief Complaint: Pneumonia and sepsis. Interval History This is a 66-year-old male who was seen in conjunction with Dr. Cuenca on . Patient has previously undergone a lumbar L3, L4 and L5 decompressive laminectomy with L3/L4 and L4/5 transforaminal interbody fusion with cage and pedicle screw fixation on 07/27/[address] Cuenca. Patient did well postoperatively and was discharged from the hospital. Patient called the office on 08/03/16 complaining of bloody drainage from just the inferior aspect of his incision that started 08/02/16. He was seen for evaluation and there was bloody drainage from the inferior aspect of his incision and also in order associated with this. The incision showed no signs of infection such as erythema or warmth or tenderness. He was placed on Keflex 500 mg 3 times a day and was seen for a follow-up incision check on 08/08/16. The bloody drainage had nearly resolved. His ander were removed at that visit. And he was instructed to continue with the Keflex and he states the drainage resolved. The patient presented to the emergency room on 08/18/16 with acute onset of confusion and fever. The night before he had gone to bed without any complaints and woke up in the morning vomiting and was confused and had fever and chills. His white count on admission was 23.8. A chest x-ray revealed consolidation in the right middle and lower lobe. Blood cultures revealed staph epidermidis. The patient was admitted for further treatment. The patient was evaluated on 08/19/16 he denied any low back pain and radicular pain. He states he is very pleased with the results. He did have complaints of productive cough producing a blackish and yellow phlegm. His confusion had resolved at that point. Review of Systems General: Negative for: fever, chills, insomnia Respiratory: Positive for: cough, sputum, Negative for: shortness of breath Cardiovascular: Negative for: chest pain, palpitations, orthopnea Gastrointestinal: Negative for: nausea, vomitting Genitourinary: Negative for: urinary burning, urinary frequency, urinary urgency Exam Results Vital Signs Date Time Temp Pulse Resp B/P Pulse Ox O2 Delivery O2 Flow Rate FiO2 08/22/16 08:31 93 21 08/22/16 08:00 98.1 79 17 169/78 08/22/16 04:32 Nasal Cannula 2.00 Intake and Output 08/21/16 08/21/16 08/22/16 08:00 16:00 00:00 Intake Total 370 ml 1076 ml 1485 ml Output Total 300 ml 975 ml 650 ml Balance 70 ml 101 ml 835 ml Physical Examination GENERAL: Patient resting comfortably in bed in no acute distress and is pleasant. HEAD: Normocephalic, atraumatic. EYES: Pupils equal. Sclera non icteric. RESPIRATORY: Some diminished breath sounds on the right. HEART: NSR Normal S1 and S2 ABDOMEN: Soft Positive BS. Obese. SKIN: No cyanosis or erythema. Lumbar incision is well-healed. There is no erythema or warmth or pain to palpation. No signs of any subcutaneous fluid collections. MUSCLE: Patient moves all 4 extremities, 5/5 strength in the lower extremities. NEUROLOGIC: Patient is awake and alert. Speech is clear and appropriate. Follows commands well. Sensation intact in extremities, comprehension is good. Lab, Micro, Other Results Last Impressions Chest X-Ray 08/19/16 0600 Signed Impressions: Service Date/Time: Friday, August 19, 2016 04:43 - CONCLUSION: Patchy right-sided pneumonia not significantly changed. Prosper Vaughn MD Laboratory Tests Test 08/22/16 05:20 White Blood Count 8.6 TH/MM3 Red Blood Count 3.32 MIL/MM3 Hemoglobin 8.9 GM/DL Hematocrit 27.1 % Mean Corpuscular Volume 81.6 FL Mean Corpuscular Hemoglobin 26.8 PG Mean Corpuscular Hemoglobin 32.8 % Concent Red Cell Distribution Width 14.0 % Platelet Count 229 TH/MM3 Mean Platelet Volume 8.8 FL 08/21/16 08/21/16 08/22/16 15:00 23:00 07:00 Intake Total 1076 ml 1485 ml 976 ml Output Total 975 ml 650 ml 600 ml Balance 101 ml 835 ml 376 ml Intake Oral 120 ml 480 ml 220 ml IV Total 956 ml 1005 ml 756 ml Output Urine Total 975 ml 650 ml 600 ml # Bowel Movements 0 0 0 Medical Decision Making Impression and Plan A: 66-year-old male status post L3-L5 decompressive laminectomy with L3/L4 and L4/L5 transforaminal interbody fusion with cage and pedicle screw fixation. He has been found on this admission to have sepsis with pneumonia, leukocytosis, and a positive blood culture. He does not have any signs of lumbar infection as the incision is well-healed without any erythema, drainage, warmth, pain, or tenderness to palpation. P: The patient will continue with his treatment for his pneumonia and sepsis. He will continue with his restrictions from his surgery. He has follow-up AP and lateral lumbar x-rays ordered in a few weeks and start been scheduled. He will subsequently follow-up with us for his scheduled follow-up evaluation. He is stable from a neurosurgical perspective for discharge and he is medically cleared. Evaluation, assessment and plan were done in conjunction with Dr. Cuenca. The patient was in full agreement with our treatment plan. Lio Anguiano August 22, 2016 11:16
[2016-08-22] MEDS: SODIUM CHLOR 0.45% 1000 ML INJ 1,000 ML IV SCH (17:57)
[2016-08-22] MEDS: PRAVASTATIN SOD 40 MG TAB PO SCH (21:04)
[2016-08-23] VITALS: BP 157/89; PULSE 90; RESP 20; TEMP 98.2; O2SAT 94
[2016-08-23] MEDS: CEFEPIME INJ 2,000 MG in SODIUM CHLORIDE 0.9% INJ 100 ML IV SCH ×2 (01:39→08:25)
[2016-08-23] MEDS: CHLORHEXIDINE GLUCONATE 2 % 1 PACK (2 CLOTHS) TOP SCH (01:39)
[2016-08-23] MEDS: metroNIDAZOLE 500 MG INJ 100 ML IV SCH ×2 (04:54→13:00)
--- NOTE | 2016-08-23 07:42 | HHI.PR ---
Subjective Remarks overall doing fine. although he says that he couldn't sleep that well last night. afebrile. no other complaints. d/w the RN. Objective Vitals Vital Signs Date Time Temp Pulse Resp B/P Pulse Ox O2 Delivery O2 Flow Rate FiO2 08/23/16 00:00 98.2 90 20 157/89 94 08/22/16 21:18 93 Nasal Cannula 21 08/22/16 20:00 99.2 95 22 174/96 93 08/22/16 16:00 98.7 101 17 180/77 92 08/22/16 12:00 95.3 87 18 168/81 95 08/22/16 08:31 93 21 08/22/16 08:00 98.1 79 17 169/78 93 I/O 08/22/16 08/22/16 08/22/16 08/23/16 08/23/16 08/23/16 07:00 15:00 23:00 07:00 15:00 23:00 Intake Total 976 ml 997 ml 1769 ml 916 ml Output Total 600 ml 750 ml 600 ml Balance 376 ml 997 ml 1019 ml 316 ml Intake Oral 220 ml 240 ml 480 ml 240 ml IV Total 756 ml 757 ml 1289 ml 676 ml Output Urine Total 600 ml 750 ml 600 ml # Voids 3 # Bowel Movements 0 0 0 0 Result Diagram: 08/22/16 0520 08/21/16 0633 Imaging Last Impressions Chest X-Ray 08/19/16 0600 Signed Impressions: Service Date/Time: Friday, August 19, 2016 04:43 - CONCLUSION: Patchy right-sided pneumonia not significantly changed. Prosper Vaughn MD Objective Remarks GENERAL: This is a well-nourished, well-developed patient, in no apparent distress. CARDIOVASCULAR: Regular rate and regular rhythm without murmurs, gallops, or rubs. RESPIRATORY: Clear to auscultation. Breath sounds equal bilaterally. No wheezes , rales, or rhonchi. GASTROINTESTINAL: Abdomen soft, non-tender, nondistended. Normal, active bowel sounds MUSCULOSKELETAL: Extremities without clubbing, cyanosis, or edema. NEURO: Alert & Oriented x4 to person, place, time, situation. Moves all ext x4 Procedures none Medications and IVs Current Medications Acetaminophen 650 mg 650 mg ONCE ONCE PO Last administered on 08/18/16 09:49 ; Start 08/18/16 at 09:15; Stop 08/18/16 at 09:16; Status DC Sodium Chloride 1,000 ml @ 1,000 mls/hr Q1H ONCE IV Last administered on 09:48; Start 08/18/16 at 09:01; Stop 08/18/16 at 10:00; Status DC Sodium Chloride 1,000 ml @ 1,000 mls/hr Q1H ONCE IV Last administered on 09:48; Start 08/18/16 at 09:01; Stop 08/18/16 at 10:00; Status DC Sodium Chloride 1,000 ml @ 1,000 mls/hr Q1H ONCE IV Last administered on 09:48; Start 08/18/16 at 09:01; Stop 08/18/16 at 10:00; Status DC Sodium Chloride 600 ml @ 1,000 mls/hr Q36M ONCE IV Last administered on 09:48; Start 08/18/16 at 09:01; Stop 08/18/16 at 09:36; Status DC Cefepime HCl 2000 mg/Sodium Chloride 100 ml @ 200 mls/hr ONCE ONCE IV Last administered on 08/18/16 09:51; Start 08/18/16 at 09:15; Stop 08/18/16 at 09:44 ; Status DC Azithromycin/ Sodium Chloride (Zithromax Inj/ NS 250 ml Inj) 250 ml @ 250 mls/ hr ONCE ONCE IV Last administered on 08/18/16 11:19; Start 08/18/16 at 11:00 ; Stop 08/18/16 at 11:59; Status DC Albuterol/ Ipratropium (Duoneb Neb) 1 ampule ONCE ONCE NEB Last administered on 08/18/16 10:56; Start 08/18/16 at 11:00; Stop 08/18/16 at 11:01; Status DC Acetaminophen/ Hydrocodone Bitart ([place] 10-325 Mg) 1 tab Q4HR PRN PO PAIN 6- 10 Last administered on 08/22/16 21:06; Start 08/18/16 at 12:00 Pravastatin Sodium (Pravachol) 40 mg HS PO Last administered on 08/22/16 21:04 ; Start 08/18/16 at 21:00 Paroxetine HCl (Paxil) 40 mg DAILY PO Last administered on 08/22/16 08:21; Start 08/19/16 at 09:00 Morphine Sulfate 100 mg 100 mg TID PO Last administered on 08/22/16 17:31; Start 08/18/16 at 13:00 Cefepime HCl 2000 mg/Sodium Chloride 100 ml @ 200 mls/hr Q8H IV Last administered on 08/23/16 01:39; Start 08/18/16 at 17:00 Azithromycin 500 mg/Sodium Chloride 250 ml @ 250 mls/hr Q24H IV Last administered on 08/21/16 11:39; Start 08/19/16 at 11:00; Stop 08/21/16 at 13:54 ; Status DC Metronidazole 100 ml @ 100 mls/hr Q8H IV Last administered on 08/23/16 04:54; Start 08/18/16 at 13:00 Sodium Chloride (NS 1000 ml Inj) 1,000 ml @ 84 mls/hr [id number] IV Last administered on 08/19/16 08:01; Start 08/18/16 at 11:56; Stop 08/19/16 at 18:32 ; Status DC Sodium Chloride (NS Flush) 2 ml UNSCH PRN IV FLUSH FLUSH AFTER USING IV ACCESS ; Start 08/18/16 at 12:00 Sodium Chloride (NS Flush) 2 ml BID IV FLUSH Last administered on 08/22/16 09: 00; Start 08/18/16 at 21:00 Acetaminophen (Tylenol) 650 mg Q6H PRN PO FEVER >101F; Start 08/18/16 at 12:00 Acetaminophen/ Hydrocodone Bitart ([place] 5-325 Mg) 1 tab Q4H PRN PO PAIN SCALE 1 TO 5; Start 08/18/16 at 12:00 Morphine Sulfate (Morphine Inj) 2 mg Q2H PRN IV PAIN SCALE 6 TO 10 Last administered on 08/19/16 04:13; Start 08/18/16 at 12:00 Pantoprazole Sodium (Protonix) 40 mg DAILY PO Last administered on 08/22/16 08: 21; Start 08/19/16 at 09:00 Ondansetron HCl (Zofran Inj) 4 mg Q6H PRN IV NAUSEA OR VOMITING Last administered on 08/20/16 13:16; Start 08/18/16 at 12:00 Docusate Sodium (Colace) 100 mg BID PO Last administered on 08/22/16 08:21; Start 08/18/16 at 21:00 Sennosides (Senokot) 17.2 mg Q12H PRN PO CONSTIPATION; Start 08/18/16 at 12:00 Albuterol Sulfate (Albuterol Neb) 2.5 mg Q6HR NEB INH Last administered on 08/22 15:02; Start 08/18/16 at 16:00; Stop 08/22/16 at 16:00; Status DC Albuterol Sulfate (Albuterol Neb) 2.5 mg Q2HR NEB PRN INH SOB/WHEEZING Last administered on 08/22/16 21:16; Start 08/18/16 at 12:00 Miscellaneous Information 1 Q361D XX ; Start 08/18/16 at 12:00 Chlorhexidine Gluconate (Chlorhexidine 2% Cloth) 3 pack Taper DAILY@04 TOP Last administered on 08/19/16 04:00; Start 08/19/16 at 04:00; Stop 08/15/17 at 03:59 Chlorhexidine Gluconate 3 pack 3 pack UNSCH PRN TOP HYGIENIC CARE; Start at 12:00 Sodium Chloride 1,000 ml @ 999 mls/hr BOLUS ONCE IV ; Start 08/18/16 at 16:30 ; Stop 08/18/16 at 17:30; Status DC Sodium Chloride (1/2 NS 1000 ml Inj) 1,000 ml @ 999 mls/hr BOLUS ONCE IV Last administered on 08/20/16 17:17; Start 08/18/16 at 16:30; Stop 08/18/16 at 17:30; Status DC Aspirin (Aspirin) 325 mg ONCE ONCE PO Last administered on 08/18/16 17:30; Start 08/18/16 at 17:30; Stop 08/18/16 at 17:31; Status DC Aspirin (Aspirin) 325 mg DAILY PO Last administered on 08/19/16 07:55; Start 08/19/16 at 09:00; Stop 08/19/16 at 15:21; Status DC Metoprolol Tartrate (Lopressor Inj) 5 mg Q6HR IV PUSH Last administered on 08/19 12:00; Start 08/18/16 at 18:00; Stop 08/19/16 at 15:21; Status DC Lisinopril 20 mg 20 mg DAILY PO Last administered on 08/22/16 08:21; Start at 09:00 Heparin Sodium/ Dextrose (Heparin-D5W Inj) 250 ml @ 0 mls/hr TITRATE IV Last administered on 08/19/16 04:03; Start 08/19/16 at 01:45; Stop 08/19/16 at 15:21 ; Status DC Aspirin (Aspirin Chew) 81 mg DAILY PO Last administered on 08/22/16 08:21; Start 08/20/16 at 09:00 Metoprolol Tartrate (Lopressor) 12.5 mg Q12HR PO Last administered on 08/22/16 21:04; Start 08/19/16 at 21:00 Mupirocin 1 applic 1 applic Taper BID EACH NARE Last administered on 08/22/16 21:00; Start 08/19/16 at 21:00; Stop 08/15/17 at 20:59 Pharmacy Profile Note (Vancomycin Consult Pharmacy) 0 ml @ 0 mls/hr UNSCH OTHER ; Start 08/19/16 at 15:30 Miscellaneous 1 ea 1 ea UNSCH PRN OTHER SEE LABEL COMMENTS; Start 08/19/16 at 15:30 Vancomycin HCl/ Sodium Chloride (Vancomycin Inj/ NS 500 ml Inj) 522.5 ml @ 250 mls/hr Q12H IV Last administered on 08/21/16 06:11; Start 08/19/16 at 17:00; Stop 08/21/16 at 09:48; Status DC Miscellaneous Information SPECIFIC LAB TO BE DRAWN:VANCO TROUGH DATE TO... ONCE ONCE .XX Last administered on 08/21/16 04:45; Start 08/21/16 at 04:45; Stop 08/21/16 at 04:46; Status DC Sodium Chloride 1,000 ml @ 42 mls/hr [id number] IV Last administered on 08/22/16 17:57; Start 08/19/16 at 18:30 Vancomycin HCl/ Sodium Chloride (Vancomycin Inj/ NS 500 ml Inj) 519 ml @ 250 mls/hr Q12H IV Last administered on 08/22/16 20:59; Start 08/21/16 at 20:00 Miscellaneous Information SPECIFIC LAB TO BE DRAWN:VANCOMY... ONCE ONCE .XX ; Start 08/23/16 at 07:45; Stop 08/23/16 at 07:46 Azithromycin (Zithromax) 500 mg Q12H PO Last administered on 08/22/16 22:18; Start 08/22/16 at 11:00 A/P Assessment and Plan A/P Chronic low back pain Chronic narcotic use Hypertension Dyslipidemia. July 2016: L3/4 and L4/5 transforaminal interbody fusion with L3 through L5 decompressive laminectomy, pedicle screw fusion of L3 through 5 with trans-body cage placement at L3/4 and L4/5 secondary to degenerative disc disease with spinal stenosis and neurogenic claudication with Dr. Cuenca. Dr. Cuenca/neurosurgery follow-up appreciated; cleared for discharge with outpatient f/u. continue pain control. Troponin elevated. Likely 2/2 sepsis. cardiology consulted and recommended medical management at this time. Recommended aspirin 81 mg, Lopressor 12.5 twice a day, statin. MPI when stable. HTN/CAD: Lisinopril 20 mg daily Lovastatin 40 mg by mouth daily Echocardiogram 08/18 revealed EF 55-60%. No regional wall motion abnormality. Mild TR. Acute respiratory insufficiency-resolved. Community-acquired pneumonia/right middle and lower lobe Lactate now normal continue antibiotics and neb treatment. Nasal cannula to maintain saturations greater than equal to 92% Incentive spirometry while awake Chest x-ray 08/18 reveals right middle/lower lobe pneumonia/infiltrates. Follow- up chest x-ray 08/19 without change. DM: Sliding-scale insulin with Accu-Cheks to maintain euglycemia/before meals and at bedtime Renal insufficiency: Creatinine currently within normal limits. Accurate I's and O's Monitor urine output Leukocytosis, resolved Normocytic anemia- H/H stable. Follow trends. Dilutional Pneumonia/community-acquired present admission History of I&D right index finger MRSA continue abx ID following. Pertinent cultures 08/18 - blood cultures 2 -1 out of 4 staph epi 08/19 - NGTD 2 days Influenza negative Urine Legionella & pneumococcal antigen negative Sputum negative PT evaluate and treat Heart healthy diet Protonix for GI prophylaxis Colace/as needed Senokot for bowel regimen DVT - SCD/Lovenox subcutaneous Discharge Planning hopefully today if cleared by ID, neurosurgery and cardiology. f/u wioth pcp, neurosurgery and cardiology. d/w the patient and RN. time spent 32 min. Cierra Arriaga MD August 23, 2016 07:42
[2016-08-23] MEDS ORDERED: Aspirin Chew PO (07:43)
[2016-08-23] MEDS ORDERED: METO25TA3 PO (07:43)
--- NOTE | 2016-08-23 07:44 | HHI.DCPOC ---
Discharge Care Plan Diagnosis: (1) Chronic low back pain Your Health Problems Are: Chronic Pain Goals to Promote Your Health * To prevent worsening of your condition and complications * To maintain your health at the optimal level Directions to Meet Your Goals Take your medications as prescribed Follow your dietary instruction Follow activity as directed Keep your appointments as scheduled Take your immunizations and boosters as scheduled If your symptoms worsen call your PCP, if no PCP go to Urgent Care Center or Emergency Room Smoking is Dangerous to Your Health. Avoid second hand smoke Call the 24-hour hour crisis hotline for domestic abuse at Cierra Arriaga MD August 23, 2016 07:44
[2016-08-23] MEDS ORDERED: PHARMACY ORDERED LAB ONE (07:45)
[2016-08-23 08:00] VITALS: BP 180/88; PULSE 98; RESP 18; TEMP 96.1; O2SAT 92
[2016-08-23] MEDS: SODIUM CHLORIDE 0.9% FLUSH 10 ML FLUSH IV FLUSH SCH (08:24)
[2016-08-23] MEDS: DOCUSATE SODIUM 100 MG CAP PO SCH (08:25)
[2016-08-23] MEDS: PARoxetine HCL 20 MG TAB PO SCH (08:25)
[2016-08-23] MEDS: PANTOPRAZOLE SOD 40 MG DELAYED RELEASE TAB PO SCH (08:25)
[2016-08-23] MEDS: MORPHINE SULFATE 100 MG CONTROLLED RELEASE TAB PO SCH ×2 (08:26→13:14)
[2016-08-23] MEDS: ASPIRIN 81 MG CHEW TAB PO SCH (08:26)
[2016-08-23] MEDS: METOPROLOL TARTRATE 25 MG TAB PO SCH (08:26)
[2016-08-23] MEDS: LISINOPRIL 20 MG TAB PO SCH (08:26)
[2016-08-23] MEDS: MUPIROCIN 2% OINT 1 APPLIC/GM SYR EACH NARE SCH (08:26)
[2016-08-23] MEDS: AZITHROMYCIN 250 MG TAB PO SCH (10:59)
[2016-08-23] MEDS: VANCOMYCIN INJ 1,900 MG in SODIUM CHLORID 0.9% 500 ML INJ 500 ML IV SCH (10:59)
[2016-08-23] MEDS ORDERED: LEVA500T PO (11:53)
--- NOTE | 2016-08-23 12:21 | HHI.DS ---
Discharge Summary Admission Date Aug 18, 2016 at 11:00 Discharge Date: August 23, 2016 Admitting Diagnosis severe sepsis, right middle/lower lobe pneumonia, leukocytosis (1) Severe sepsis ICD Code: A41.9 Diagnosis: Principal (2) PNA (pneumonia) ICD Code: J18.9 (3) Elevated troponin ICD Code: R74.8 Diagnosis: Principal (4) Low back pain ICD Code: M54.5 Diagnosis: Principal (5) Hyperlipidemia ICD Code: E78.5 Diagnosis: Principal (6) HTN (hypertension) ICD Code: I10 Diagnosis: Principal (7) Leukocytosis ICD Code: D72.829 Diagnosis: Principal (8) Chronic diastolic heart failure ICD Code: I50.32 Diagnosis: Principal (9) Anemia ICD Code: D64.9 Diagnosis: Principal (10) Sinus tachycardia ICD Code: R00.0 Diagnosis: Principal Procedures none Brief History - From Admission 66-year-old male. Date of admission 08/18/16. Past medical history includes chronic low back pain, pressure, chronic narcotic use, hypertension and dyslipidemia. Earlier this month on July 27/2017, patient underwent an L3/ 4 and L4/5 transforaminal interbody fusion with L3 through L5 decompressive laminectomy, pedicle screw fusion of L3 through 5 with trans-body cage placement at L3/4 and L4/5 secondary to degenerative disc disease with spinal stenosis and neurogenic claudication with Dr. Cuenca. Mr. Tsai was evaluated in the office after surgery, and was noted to have a small amount of postoperative clear drainage and possible infection, was placed on Keflex. The states the patient finished the Keflex and was reevaluated by Dr. Cuenca, there is no further infection according to the . The patient was doing well last night, ate dinner went to bed without difficulty. When Mr. Tsai woke this morning he was vomiting, subjective afebrile with night sweats, chills and confused. Oriented to person only not place time or year. During his ER workup was noted to have a leukocytosis of 22 ,000. Lactate 3.6 Right middle/lower lobe pneumonia. Patient was treated empirically with cefepime and Zithromax. He was also bolused 2 L normal saline. Patient is much improved currently awake and alert to person place and time. Currently thirsty and warm. CBC/BMP: 08/22/16 0520 08/21/16 0633 Significant Findings Laboratory Tests Test 08/21/16 08/22/16 08/23/16 06:33 05:20 09:00 Red Blood Count 3.32 MIL/MM3 3.32 MIL/MM3 (4.50-5.90) (4.50-5.90) Hemoglobin 8.9 GM/DL 8.9 GM/DL (13.0-17.0) (13.0-17.0) Hematocrit 27.3 % 27.1 % (39.0-51.0) (39.0-51.0) Mean Corpuscular Hemoglobin 26.9 PG 26.8 PG (27.0-34.0) (27.0-34.0) Neutrophils (%) (Auto) 73.4 % (16.0-70.0) Random Glucose 122 MG/DL (74-106) Total Protein 6.0 GM/DL (6.4-8.2) Albumin 2.5 GM/DL (3.4-5.0) Vancomycin Level Trough 20.2 MCG/ML 18.3 MCG/ML (5.0-10.0) (5.0-10.0) Imaging Last Impressions Chest X-Ray 08/19/16 0600 Signed Impressions: Service Date/Time: Friday, August 19, 2016 04:43 - CONCLUSION: Patchy right-sided pneumonia not significantly changed. Prosper Vaughn MD PE at Discharge GENERAL: This is a well-nourished, well-developed patient, in no apparent distress. CARDIOVASCULAR: Regular rate and regular rhythm without murmurs, gallops, or rubs. RESPIRATORY: Clear to auscultation. Breath sounds equal bilaterally. No wheezes , rales, or rhonchi. GASTROINTESTINAL: Abdomen soft, non-tender, nondistended. Normal, active bowel sounds MUSCULOSKELETAL: Extremities without clubbing, cyanosis, or edema. NEURO: Alert & Oriented x4 to person, place, time, situation. Moves all ext x4 Hospital Course Chronic low back pain Chronic narcotic use Hypertension Dyslipidemia. July 2016: L3/4 and L4/5 transforaminal interbody fusion with L3 through L5 decompressive laminectomy, pedicle screw fusion of L3 through 5 with trans-body cage placement at L3/4 and L4/5 secondary to degenerative disc disease with spinal stenosis and neurogenic claudication with Dr. Cuenca. Dr. Cuenca/neurosurgery follow-up appreciated; cleared for discharge with outpatient f/u. continue pain control. Troponin elevated. Likely 2/2 sepsis. cardiology consulted and recommended medical management at this time. Recommended aspirin 81 mg, Lopressor 12.5 twice a day, statin. MPI when stable. HTN/CAD: Lisinopril 20 mg daily Lovastatin 40 mg by mouth daily Echocardiogram 08/18 revealed EF 55-60%. No regional wall motion abnormality. Mild TR. Acute respiratory insufficiency-resolved. Community-acquired pneumonia/right middle and lower lobe Lactate now normal continue antibiotics and neb treatment. Nasal cannula to maintain saturations greater than equal to 92% Incentive spirometry while awake Chest x-ray 08/18 reveals right middle/lower lobe pneumonia/infiltrates. Follow- up chest x-ray 08/19 without change. DM: Sliding-scale insulin with Accu-Cheks to maintain euglycemia/before meals and at bedtime Renal insufficiency: Creatinine currently within normal limits. Accurate I's and O's Monitor urine output Leukocytosis, resolved Normocytic anemia- H/H stable. Follow trends. Dilutional Pneumonia/community-acquired present admission History of I&D right index finger MRSA continue abx ID following. Pertinent cultures 08/18 - blood cultures 2 -1 out of 4 staph epi 08/19 - NGTD 2 days Influenza negative Urine Legionella & pneumococcal antigen negative Sputum negative PT evaluate and treat Heart healthy diet Protonix for GI prophylaxis Colace/as needed Senokot for bowel regimen DVT - SCD/Lovenox subcutaneous Pt Condition on Discharge: Good Discharge Disposition: Discharge Home Discharge Time: > 30 minutes Discharge Instructions DIET: Follow Instructions for: Heart Healthy Diet, Diabetic Diet Activities you can perform: Regular-No Restrictions Follow up Referrals: Cardiology Neurosurgery PCP Follow-up New Medications: Levofloxacin (Levaquin) 500 Mg Tab 500 MG PO DAILY Infection Days 7 Ref 0 TAB Metoprolol Tartrate (Metoprolol Tartrate) 25 Mg Tab 12.5 MG PO Q12HR cad Days 30 Ref 0 TAB ([Aspirin Chew]) 81 MG CHEW 81 MG PO DAILY cad Days 30 Ref 0 TAB.CHEW Continued Medications: Hydrocodone-Acetaminophen (Hydrocodone-Acetaminophen) 10-325 mg Tab 1 TAB PO Q4HR PRN PAIN #60 Ref 0 TAB Lisinopril (Lisinopril) 20 Mg Tab 20 MG PO DAILY #30 Ref 0 TAB Lovastatin (Lovastatin) 40 Mg Tab 40 MG PO HS Cholesterol Management #30 Ref 0 TAB Morphine Sulfate CR (Morphine Sulfate CR) 100 Mg Tab 1 TAB PO TID Paroxetine (Paroxetine) 40 Mg Tab 40 MG PO DAILY #30 Ref 0 TAB Cierra Arriaga MD August 23, 2016 12:21
--- NOTE | 2016-08-23 14:33 | PD.CARD.PN ---
Subjective Subjective Remarks no CV complaints Ambulating without difficulty Objective Medications Current Medications Medications (Trade) Dose Ordered Sig/Abdi Route Start Time Stop Time Status Last Admin ([place] 10-325 Mg) 1 tab Q4HR PRN PO 08/18/16 12:00 08/22/16 21:06 (Pravachol) 40 mg HS PO 08/18/16 21:00 08/22/16 21:04 (Paxil) 40 mg DAILY PO 08/19/16 09:00 08/23/16 08:25 Morphine Sulfate 100 mg 100 mg TID PO 08/18/16 13:00 08/23/16 13:14 Cefepime HCl 2000 mg/Sodium Chloride 100 ml @ 200 mls/hr Q8H IV 08/18/16 17:00 08/23/16 08:25 (Flagyl 500 Mg Inj) 100 ml @ 100 mls/hr Q8H IV 08/18/16 13:00 08/23/16 04:54 (NS Flush) 2 ml UNSCH PRN IV FLUSH 08/18/16 12:00 (NS Flush) 2 ml BID IV FLUSH 08/18/16 21:00 08/23/16 08:24 (Tylenol) 650 mg Q6H PRN PO 08/18/16 12:00 ([place] 5-325 Mg) 1 tab Q4H PRN PO 08/18/16 12:00 (Morphine Inj) 2 mg Q2H PRN IV 08/18/16 12:00 08/19/16 04:13 (Protonix) 40 mg DAILY PO 08/19/16 09:00 08/23/16 08:25 (Zofran Inj) 4 mg Q6H PRN IV 08/18/16 12:00 08/20/16 13:16 (Colace) 100 mg BID PO 08/18/16 21:00 08/23/16 08:25 (Senokot) 17.2 mg Q12H PRN PO 08/18/16 12:00 Miscellaneous Information 1 Q361D XX 08/18/16 12:00 (Chlorhexidine 2% Cloth) 3 pack Taper DAILY@04 TOP 08/19/16 04:00 08/15/17 03:59 08/19/16 04:00 (Chlorhexidine 2% Cloth) 3 pack UNSCH PRN TOP 08/18/16 12:00 (Prinivil) 20 mg DAILY PO 08/19/16 09:00 08/23/16 08:26 (Aspirin Chew) 81 mg DAILY PO 08/20/16 09:00 08/23/16 08:26 (Lopressor) 12.5 mg Q12HR PO 08/19/16 21:00 08/23/16 08:26 Mupirocin 1 applic 1 applic Taper BID EACH NARE 08/19/16 21:00 08/15/17 20:59 08/22/16 21:00 (Vancomycin Consult Pharmacy) 0 ml @ 0 mls/hr UNSCH OTHER 08/19/16 15:30 Miscellaneous 1 ea 1 ea UNSCH PRN OTHER 08/19/16 15:30 Sodium Chloride 1,000 ml @ 42 mls/hr [id number] IV 08/19/16 18:30 08/22/16 17:57 (Vancomycin Inj/ NS 500 ml Inj) 519 ml @ 250 mls/hr Q12H IV 08/21/16 20:00 08/23/16 10:59 (Zithromax) 500 mg Q12H PO 08/22/16 11:00 08/23/16 10:59 Vital Signs / I&O Vital Signs Date Time Temp Pulse Resp B/P Pulse Ox O2 Delivery O2 Flow Rate FiO2 08/23/16 08:00 96.1 98 18 180/88 92 08/23/16 00:00 98.2 90 20 157/89 94 08/22/16 21:18 93 Nasal Cannula 21 08/22/16 20:00 99.2 95 22 174/96 93 08/22/16 16:00 98.7 101 17 180/77 92 I/O 08/22/16 08/22/16 08/22/16 08/23/16 08/23/16 08/23/16 07:00 15:00 23:00 07:00 15:00 23:00 Intake Total 976 ml 997 ml 1769 ml 916 ml 548 ml Output Total 600 ml 750 ml 600 ml 1100 ml Balance 376 ml 997 ml 1019 ml 316 ml -552 ml Intake Oral 220 ml 240 ml 480 ml 240 ml 340 ml IV Total 756 ml 757 ml 1289 ml 676 ml 208 ml Output Urine Total 600 ml 750 ml 600 ml 1100 ml # Voids 3 # Bowel Movements 0 0 0 0 1 Physical Exam GENERAL: Well-nourished, well-developed patient. SKIN: Warm and dry. HEAD: Normocephalic. EYES: No scleral icterus. No injection or drainage. NECK: Supple, trachea midline. No JVD or lymphadenopathy. CARDIOVASCULAR: Regular rate and rhythm without murmurs, gallops, or rubs. RESPIRATORY: Breath sounds equal bilaterally. No accessory muscle use. GASTROINTESTINAL: Abdomen soft, non-tender, nondistended. EXTREMITIES: No cyanosis, or edema. NEUROLOGICAL: Awake, alert, and oriented x 3. Non-focal. Laboratory Laboratory Tests Test 08/23/16 09:00 Vancomycin Level Trough 18.3 MCG/ML Imaging Last Impressions Chest X-Ray 08/19/16 0600 Signed Impressions: Service Date/Time: Monday, August 19, 2016 04:43 - CONCLUSION: Patchy right-sided pneumonia not significantly changed. Prosper Vaughn MD Assessment and Plan Problem List: (1) Elevated troponin Assessment and Plan: In the setting of Sepsis No CV complaints ECHO unremarkable Stable from CV standpoint to d/c home today F/U with me in 2 weeks Cont ASA and primary prevention for CAD (2) Fever (3) Acute encephalopathy (4) Leukocytosis (5) Low back pain (6) Sinus tachycardia (7) Anemia (8) Hyperlipidemia (9) HTN (hypertension) (10) Severe sepsis (11) PNA (pneumonia) (12) Lactic acidosis Problem Qualifiers (1) Low back pain: Qualified Code: M54.5 - Chronic low back pain, unspecified back pain laterality , with sciatica presence unspecified (2) Anemia: Qualified Code: D64.9 - Anemia, unspecified type (3) Hyperlipidemia: Qualified Code: E78.5 - Hyperlipidemia, unspecified hyperlipidemia type (4) HTN (hypertension): Qualified Code: I10 - Essential hypertension (5) PNA (pneumonia): Qualified Code: J18.9 - Pneumonia of right lung due to infectious organism, unspecified part of lung Black Delgado MD August 23, 2016 14:33
== END 2016-08-23 15:00 | disposition home or self-care (01) | DRG 871 ==
LOC: NEPE 08:40 → NEDA 11:00 → HIME 15:45 → HCIS 08-19 23:16 → N07A 08-20 18:30
PROVIDERS: ADMIT Internal Medicine; ATTEND Internal Medicine
PROC: 3E0F7GC Introduction of Other Therapeutic Substance into Respiratory Tract, Via Natural or Artificial Opening (ICD-10-PCS; principal; 2016-08-18)
DX: A41.9 Sepsis, unspecified organism (principal); J18.9 Pneumonia, unspecified organism; E87.2 Acidosis; I50.32 Chronic diastolic (congestive) heart failure; I24.8 Other forms of acute ischemic heart disease; E11.9 Type 2 diabetes mellitus without complications; D64.9 Anemia, unspecified; I10 Essential (primary) hypertension; F32.9 Major depressive disorder, single episode, unspecified; R65.20 Severe sepsis without septic shock; E78.00 Pure hypercholesterolemia, unspecified; M19.90 Unspecified osteoarthritis, unspecified site; E78.5 Hyperlipidemia, unspecified; R00.0 Tachycardia, unspecified; Z79.891 Long term (current) use of opiate analgesic; M51.36 Other intervertebral disc degeneration, lumbar region; Z86.14 Personal history of Methicillin resistant Staphylococcus aureus infection; Z91.018 Allergy to other foods; Z80.1 Family history of malignant neoplasm of trachea, bronchus and lung; Z84.89 Family history of other specified conditions; R06.89 Other abnormalities of breathing; G89.29 Other chronic pain; M54.5 Low back pain; Z87.891 Personal history of nicotine dependence; I25.2 Old myocardial infarction; E66.9 Obesity, unspecified; I25.10 Atherosclerotic heart disease of native coronary artery without angina pectoris; M79.641 Pain in right hand
CPT/HCPCS: 71010; 80053; 80061; 80202; 81001; 82550; 82552; 82805; 83605; 83690; 83735; 84100; 84484; 85025; 85027; 85610; 85730; 87040; 87070; 87186; 87205; 87449; 87641; 87804; 93005; 93306; 94150; 94640; 94664; 96365; J0456; J0692; J1644; J2270; J2405; J3370; J7030; J7040; J7050; J7613

== ENCOUNTER 2016-10-14 14:02 | Observation (INO) | payer MEDICARE, OTHER ==
[~2016-10-14] VITALS: Ht 188 cm; Wt 120.0 kg
[2016-10-14] VITALS (7 sets, daily range): BP systolic 117–164; BP diastolic 57–84; PULSE 67–100; RESP 16–24; TEMP 98.5–98.8; O2SAT 92–100
[~2016-10-14 14:02] MED LIST changes: +Aspirin Chew PO; -CEPH-460 PO; -CYCL1TAB29 PO; +LEVA500T PO; +METO25TA3 PO
[2016-10-14 14:30] LABS: AUTOMATED NEUTROPHIL # 10.9 TH/MM3 (1.8-7.7); BASOPHIL % 0.2 % (0.0-2.0); EOSINOPHIL # 0.3 TH/MM3 (0-0.4); EOSINOPHIL % 2.4 % (0.0-4.0); HEMATOCRIT 33.2 % (39.0-51.0); HEMO FLAGS DIFF FINAL; LYMPH % 14.9 % (9.0-44.0); LYMPHOCYTE # 2.2 TH/MM3 (1.0-4.8); MEAN CELL VOLUME 81.2 FL (80.0-100.0); MEAN CORPUSCULAR HEMOGLOBIN 26.4 PG (27.0-34.0); MEAN CORPUSCULAR HGB CONC 32.5 % (32.0-36.0); MONO % 7.4 % (0.0-8.0); NEUT % 75.1 % (16.0-70.0); PLATELET COUNT 220 TH/MM3 (150-450); RED BLOOD COUNT 4.09 MIL/MM3 (4.50-5.90); RED CELL DISTRIBUTION WIDTH 15.1 % (11.6-17.2); WHITE BLOOD COUNT 14.5 TH/MM3 (4.0-11.0)
[2016-10-14 14:40] LABS: APTT (PATIENT) 26.4 SEC (24.3-30.1); PROTHROMBIN TIME - PATIENT 10.8 SEC (9.8-11.6)
[2016-10-14 14:45] LABS: ALT (GPT) 24 U/L (12-78); ANION GAP 9 MEQ/L (5-15); AST (GOT) 35 U/L (15-37); BICARBONATE 25.8 MEQ/L (21.0-32.0); BLOOD UREA NITROGEN 24 MG/DL (7-18); CHLORIDE 103 MEQ/L (98-107); GLOMERULAR FILTRATION RATE 49 ML/MIN (>89); POTASSIUM 3.8 MEQ/L (3.5-5.1); SODIUM (NA) 138 MEQ/L (136-145)
[2016-10-14 14:49] LABS: ALKALINE PHOSPHATASE 82 U/L (45-117); CREATINE KINASE 815 U/L (39-308); TOTAL BILIRUBIN ADULT 0.8 MG/DL (0.2-1.0)
[2016-10-14 15:09] LABS: CKMB 24.2 NG/ML (0.5-3.6)
[2016-10-14] MEDS ORDERED: SODIUM CHLOR 0.9% 1000 ML INJ 1,000 ML IV SCH ×2 (15:15→19:00)
--- NOTE | 2016-10-14 15:31 | PD ---
HPI Chief Complaint: OD/ Ingestion Time Seen by Provider: 14:10 Travel History International Travel<30 days: No (unable to obtain) Contact w/Intl Traveler<30days: No (unable to obtain) Traveled to known affect area: No (unable to obtain) History of Present Illness HPI 66-year-old male was brought in the EMS after patient was found on the floor unresponsive. Patient has history of chronic pain and has been taking morphine and Lortab at home. Patient's states the patient is not overdosing on the medication. Patient's states the patient started having lethargy and memory problem yesterday. Patient's states that she went out and came back and found the patient on the floor unresponsive. EMS was called. Patient was reported by EMS had a white powder substance in the mouth. Patient was given Narcan 0.4 mg IV. Patient became combative on the way to ED. PFSH Past Medical History Arthritis: Yes Autoimmune Disease: No Anxiety: No Depression: Yes Heart Rhythm Problems: No Cancer: No Cardiovascular Problems: Yes (htn) High Cholesterol: Yes Chest Pain: No Congestive Heart Failure: No Cerebrovascular Accident: No Diabetes: No Diminished Hearing: No Endocrine: No Gastrointestinal Disorders: Yes Genitourinary: No Hepatitis: No Hiatal Hernia: No Hypertension: Yes Immune Disorder: No Kidney Stones: No Neurologic: Yes Psychiatric: No Reproductive: No Respiratory: No Renal Failure: No Sickle Cell Disease: No Thyroid Disease: No Ulcer: No Past Surgical History Abdominal Surgery: Yes (INGUINAL ) AICD: No Cardiac Surgery: No Ear Surgery: No Endocrine Surgery: No Eye Surgery: No Genitourinary Surgery: Yes (VASECTOMY) Gynecologic Surgery: No Joint Replacement: No Oral Surgery: No Pacemaker: No Thoracic Surgery: Yes (2016) Other Surgery: Yes (I&D TO R INDEX FINGER) Social History Alcohol Use: No (unable to obtain) Tobacco Use: No (unable to obtain) Substance Use: No (unable to obtain) Allergies-Medications (Allergen,Severity, Reaction): Coded Allergies: Mushroom (Unverified Allergy, Severe, Shortness of Breath, 09/07/16) *MDRO Multi-Drug Resistant Organism (Verified Adverse Reaction, Unknown, ) MRSA (hand wound) - 05/2013 MRSA PCR Screen POSITIVE - 08/18/2016 Reported Meds & Prescriptions Reported Meds & Active Scripts Active Metoprolol Tartrate 25 Mg Tab 12.5 Mg PO Q12HR 30 Days Hydrocodone-Acetaminophen 10-325 mg Tab 1 Tab PO Q4HR PRN Reported Aspirin Adult Low Strength (Aspirin) 81 Mg Tabdr 81 Mg PO DAILY Paroxetine (Paroxetine HCl) 40 Mg Tab 40 Mg PO DAILY Lovastatin 40 Mg Tab 40 Mg PO HS Lisinopril 20 Mg Tab 20 Mg PO DAILY Morphine Sulfate CR (Morphine Sulfate) 100 Mg Tab 1 Tab PO TID Review of Systems ROS Limitations: Altered Mental Status Physical Exam Narrative GENERAL: Well-nourished, well-developed patient. SKIN: Focused skin assessment warm/dry. HEAD: Normocephalic. EYES: No scleral icterus. No injection or drainage. Pupils 3 mm equal reactive. NECK: Supple, trachea midline. No JVD or lymphadenopathy. CARDIOVASCULAR: Regular rate and rhythm without murmurs, gallops, or rubs. RESPIRATORY: Breath sounds equal bilaterally. No accessory muscle use. GASTROINTESTINAL: Abdomen soft, non-tender, nondistended. MUSCULOSKELETAL: No cyanosis, or edema. BACK: Nontender without obvious deformity. No CVA tenderness. Neurologic exam: Patient is combative, lethargic and confused. Patient moves all extremity well. No obvious focal neurological deficit. Data Data Last Documented VS Vital Signs Date Time Temp Pulse Resp B/P Pulse Ox O2 Delivery O2 Flow Rate FiO2 10/14/16 17:35 79 16 148/66 95 Room Air 10/14/16 14:05 98.8 Orders Electrocardiogram (10/14/16 14:10) Complete Blood Count With Diff (10/14/16 14:10) Comprehensive Metabolic Panel (10/14/16 14:10) Creatine Kinase (Cpk) (10/14/16 14:10) Troponin I (10/14/16 14:10) Prothrombin Time / Inr (Pt) (10/14/16 14:10) Act Partial Throm Time (Ptt) (10/14/16 14:10) Urinalysis - C+S If Indicated (10/14/16 14:10) Iv Access Insert/Monitor (10/14/16 14:10) Ecg Monitoring (10/14/16 14:10) Oximetry (10/14/16 14:10) Drug Screen, Random Urine (10/14/16 14:10) Alcohol (Ethanol) (10/14/16 14:10) Restraints Non-Violent KARINE.Q3H (10/14/16 14:10) CKMB (10/14/16 14:19) CKMB% (10/14/16 14:19) Lactic Acid (10/14/16 15:08) Blood Culture (10/14/16 15:08) Sodium Chlor 0.9% 1000 Ml Inj (Ns 1000 M (10/14/16 15:15) Chest, Single Ap (10/14/16 15:09) Ct Brain W/O Iv Contrast(Rout) (10/14/16 15:09) Salicylates (Aspirin) (10/14/16 15:09) Tylenol (Acetaminophen) (10/14/16 15:09) Labs Laboratory Tests Test 10/14/16 10/14/16 10/14/16 14:19 14:50 16:02 White Blood Count 14.5 TH/MM3 Red Blood Count 4.09 MIL/MM3 Hemoglobin 10.8 GM/DL Hematocrit 33.2 % Mean Corpuscular Volume 81.2 FL Mean Corpuscular Hemoglobin 26.4 PG Mean Corpuscular Hemoglobin 32.5 % Concent Red Cell Distribution Width 15.1 % Platelet Count 220 TH/MM3 Mean Platelet Volume 8.8 FL Neutrophils (%) (Auto) 75.1 % Lymphocytes (%) (Auto) 14.9 % Monocytes (%) (Auto) 7.4 % Eosinophils (%) (Auto) 2.4 % Basophils (%) (Auto) 0.2 % Neutrophils # (Auto) 10.9 TH/MM3 Lymphocytes # (Auto) 2.2 TH/MM3 Monocytes # (Auto) 1.1 TH/MM3 Eosinophils # (Auto) 0.3 TH/MM3 Basophils # (Auto) 0.0 TH/MM3 CBC Comment DIFF FINAL Differential Comment Prothrombin Time 10.8 SEC Prothromb Time International 1.0 RATIO Ratio Activated Partial 26.4 SEC Thromboplast Time Sodium Level 138 MEQ/L Potassium Level 3.8 MEQ/L Chloride Level 103 MEQ/L Carbon Dioxide Level 25.8 MEQ/L Anion Gap 9 MEQ/L Blood Urea Nitrogen 24 MG/DL Creatinine 1.44 MG/DL Estimat Glomerular Filtration 49 ML/MIN Rate Random Glucose 150 MG/DL Calcium Level 9.1 MG/DL Total Bilirubin 0.8 MG/DL Aspartate Amino Transf 35 U/L (AST/SGOT) Alanine Aminotransferase 24 U/L (ALT/SGPT) Alkaline Phosphatase 82 U/L Total Creatine Kinase 815 U/L Creatine Kinase MB 24.2 NG/ML Creatine Kinase MB % 3.0 % Troponin I 0.09 NG/ML Total Protein 7.3 GM/DL Albumin 3.7 GM/DL Acetaminophen Level LESS THAN 2.0 MCG/ML Ethyl Alcohol Level 3 MG/DL Lactic Acid Level 1.4 mmol/L Salicylates Level LESS THAN 1.7 MG/DL MDM Medical Decision Making Medical Screen Exam Complete: Yes Emergency Medical Condition: Yes Interpretation(s) Last Impressions Head CT 10/14/16 1509 Signed Impressions: Service Date/Time: Friday, October 14, 2016 16:58 - CONCLUSION: 1. No acute findings. Stable remote infarct left frontal lobe. Chip uGerrero MD Chest X-Ray 10/14/16 1509 Signed Impressions: Service Date/Time: Friday, October 14, 2016 15:26 - CONCLUSION: Compensated cardiomegaly otherwise negative Board Certified Radiologist. This report was verified electronically. 1851 PM. CBC WBC 14.5. Hemoglobin 10.8 hematocrit 33.2. 75 neutrophil. BUN 24. Creatinine 1.44. GFR 49. Potassium 1.4. CK 8:15. Normal MB fraction. Troponin 0.09. Alcohol negative. Acetaminophen and salicylate negative. Differential Diagnosis Differential diagnosis including TIA, CVA, electrolyte imbalance, dehydration, pneumonia, UTI, sepsis, side effect to medication, drug overdose. Narrative Course 66-year-old male was found unresponsive at home today. Patient is more lethargic and with memory issues since yesterday. Patient's on morphine and Lortab for chronic back pain. Patient's states the patient does not overdose on the medication at home. EMS was called. Patient became combative after IV Narcan 0.4 mg IV given. Normal saline solution 1 L IV bolus. Normal saline solution 1 25 cc an hour. Vancomycin 1 g IV given. Zosyn 3.375 g IV given. Diagnosis Primary Impression: Altered mental status Qualified Code: R41.82 - Altered mental status, unspecified altered mental status type Additional Impressions: Acute renal injury Elevated troponin Admitting Information Admitting Physician Requests: Admit Jaren Sabillon MD Oct 14, 2016 15:31
--- NOTE | 2016-10-14 15:47 | RADRPT ---
EXAM DATE/TIME: 10/14/2016 15:26 [facility] COMPARISON: CHEST SINGLE AP, August 19, 2016, 4:43. INDICATIONS : Shortness of breath. MEDICAL HISTORY : None. SURGICAL HISTORY : None. ENCOUNTER: Initial ACUITY: 1 day PAIN SCORE: Non-responsive. LOCATION: chest FINDINGS: The lungs are clear. The heart is minimally enlarged. The pulmonary vascularity is normal. There is n o evidence for infiltrate or failure. The portion of the bony skeleton visualized is unremarkable. CONCLUSION: Compensated cardiomegaly otherwise negative Board Certified Radiologist. This report was verified electronically.
--- NOTE | 2016-10-14 17:12 | RADRPT ---
EXAM DATE/TIME: 10/14/2016 16:58 [facility] COMPARISON: CT BRAIN W/O CONTRAST, April 16, 2015, 8:29. INDICATIONS : Evaluate for altered mental status. RADIATION DOSE: 69.19 CTDIvol (mGy) MEDICAL HISTORY : Cardiovascular disease. Hypertension. Inguenial hernia. SURGICAL HISTORY : Hemorrhoidectomy. ENCOUNTER: Initial ACUITY: 1 day PAIN SCALE: 3/10 LOCATION: Bilateral cranial TECHNIQUE: Multiple contiguous axial images were obtained of the head. Using automated exposure control and adj ustment of the mA and/or kV according to patient size, radiation dose was kept as low as reasonably a chievable to obtain optimal diagnostic quality images. DICOM format image data is available electro nically for review and comparison. FINDINGS: CEREBRUM: The ventricles are normal for age. No evidence of midline shift, mass lesion, hemorrhage or acute in farction. Stable focal encephalomalacia medial left frontal lobe. No extra-axial fluid collections a re seen. POSTERIOR FOSSA: The cerebellum and brainstem are intact. The 4th ventricle is midline. The cerebellopontine angle i s unremarkable. EXTRACRANIAL: The visualized portion of the orbits is intact. SKULL: The calvaria is intact. No evidence of skull fracture. CONCLUSION: 1. No acute findings. Stable remote infarct left frontal lobe. Chip Guerrero MD on October 14, 2016 at 17:08 Board Certified Radiologist. This report was verified electronically.
[2016-10-14] MEDS ORDERED: ASPI1TAB91 PO (18:13)
[2016-10-14] MEDS ORDERED: AMBI5TAB PO (18:55)
[2016-10-14] MEDS ORDERED: STOO100C PO (18:55)
[2016-10-14] MEDS ORDERED: SODIUM CHLOR 0.9% 1000 ML INJ 1,000 ML IV ONE (19:00)
[2016-10-14] MEDS ORDERED: VANCOMYCIN INJ 1,000 MG in SODIUM CHLOR 0.9% 250 ML INJ 250 ML IV ONE (19:15)
[2016-10-14] MEDS ORDERED: PIPERACIL-TAZO 3.375 GM PREMIX 50 ML IV ONE (19:15)
--- NOTE | 2016-10-14 19:25 | HHI.HP ---
HPI Service [facility] Primary Care Physician Sunday Forrester MD Admission Diagnosis altered mental status. Acute kidney injury. Elevated troponin. Diagnoses: (1) Overdose Diagnosis: Principal (2) Elevated troponin Diagnosis: Principal (3) DALTON (acute kidney injury) Diagnosis: Principal (4) Rhabdomyolysis Diagnosis: Principal (5) Leukocytosis Diagnosis: Principal (6) HTN (hypertension) Diagnosis: Principal Travel History International Travel<30 Days: No (unable to obtain) Contact w/Intl Traveler <30 Da: No (unable to obtain) Traveled to Known Affected Are: No (unable to obtain) History of Present Illness This is a 66-year-old male with a PMH of Depression, HTN, Hyperlipidemia and Chronic Back Pain was brought to ER by EMS after being found unresponsive by . Per , patient noted to be significantly lethargic since yesterday, today she found patient lying on the floor unresponsive. states pt normally takes Morphine 100mg. Per EMS report, pt found w/ GCS 5, BP 66/33 HR 50, RR 8 s/p Narcan 0.4mg w/ immediate response, requiring restraints due to agitation. Pt unable to provide history. On arrival, BP 149/70, HR 99, O2 sat 100% on RA, Afebrile. WBC 14.5. Creatinine 1.44, previously 0.86 on 08/21/16. Acid 1.4. Troponin 0.09. CPK 8:15. UA negative. Urine Drug Screen positive for Opiates. CXR with no acute findings. CT Head stable remote infarct left frontal lobe, no acute findings noted. While in ER, pt has not required additional dose of Narcan. Remains lethargic, but rouses easily. Review of Systems Except as stated in HPI: all other systems reviewed are Neg ROS: Unable to obtain secondary to AMS. Past Family Social History Past Medical History PMH: Depression, HTN, Hyperlipidemia and Chronic Back Pain Past Surgical History PAST SURGICAL HISTORY: Hernia Repair, Vasectomy, Right Index Finger I&D Allergies: Coded Allergies: Mushroom (Unverified Allergy, Severe, Shortness of Breath, 09/07/16) *MDRO Multi-Drug Resistant Organism (Verified Adverse Reaction, Unknown, ) MRSA (hand wound) - 05/2013 MRSA PCR Screen POSITIVE - 08/18/2016 Family History PAST FAMILY HISTORY: Unknown Social History PAST SOCIAL HISTORY: Unknown Physical Exam Vital Signs Vital Signs Date Time Temp Pulse Resp B/P Pulse Ox O2 Delivery O2 Flow Rate FiO2 10/14/16 17:35 79 16 148/66 95 Room Air 10/14/16 14:30 100 18 152/68 98 Room Air 10/14/16 14:17 99 Room Air 10/14/16 14:17 100 22 99 Room Air 10/14/16 14:05 98.8 99 24 149/70 100 Physical Exam PE: GENERAL: Middle-aged white male in no acute distress, lethargic but arouses easily. HEENT: PERRLA, EOMI. No scleral icterus or conjunctival pallor. No lid lag or facial droop. CARDIOVASCULAR: Regular rate and rhythm. No obvious murmurs to auscultation. No chest tenderness to palpation. RESPIRATORY: No obvious rhonchi or wheezing. Clear to auscultation. Breath sounds equal bilaterally. GASTROINTESTINAL: Abdomen soft, non-tender, nondistended. BS normal. MUSCULOSKELETAL: Extremities without clubbing, cyanosis, or edema. No obvious deformities. NEUROLOGICAL: Lethargic, but arouses easily. No focal neurologic deficits. Moving both upper and lower extremities spontaneously. Laboratory Laboratory Tests Test 10/14/16 10/14/16 10/14/16 14:19 14:50 16:02 White Blood Count 14.5 Red Blood Count 4.09 Hemoglobin 10.8 Hematocrit 33.2 Mean Corpuscular Volume 81.2 Mean Corpuscular Hemoglobin 26.4 Mean Corpuscular Hemoglobin 32.5 Concent Red Cell Distribution Width 15.1 Platelet Count 220 Mean Platelet Volume 8.8 Neutrophils (%) (Auto) 75.1 Lymphocytes (%) (Auto) 14.9 Monocytes (%) (Auto) 7.4 Eosinophils (%) (Auto) 2.4 Basophils (%) (Auto) 0.2 Neutrophils # (Auto) 10.9 Lymphocytes # (Auto) 2.2 Monocytes # (Auto) 1.1 Eosinophils # (Auto) 0.3 Basophils # (Auto) 0.0 CBC Comment DIFF FINAL Differential Comment Prothrombin Time 10.8 Prothromb Time International 1.0 Ratio Activated Partial 26.4 Thromboplast Time Sodium Level 138 Potassium Level 3.8 Chloride Level 103 Carbon Dioxide Level 25.8 Anion Gap 9 Blood Urea Nitrogen 24 Creatinine 1.44 Estimat Glomerular Filtration 49 Rate Random Glucose 150 Calcium Level 9.1 Total Bilirubin 0.8 Aspartate Amino Transf 35 (AST/SGOT) Alanine Aminotransferase 24 (ALT/SGPT) Alkaline Phosphatase 82 Total Creatine Kinase 815 Creatine Kinase MB 24.2 Creatine Kinase MB % 3.0 Troponin I 0.09 Total Protein 7.3 Albumin 3.7 Acetaminophen Level LESS THAN 2.0 Ethyl Alcohol Level 3 Lactic Acid Level 1.4 Salicylates Level LESS THAN 1.7 Date/Time Procedure Status Source Growth 10/14/16 14:50 Aerobic Blood Culture Received Blood Peripheral Pending 10/14/16 14:50 Anaerobic Blood Culture Received Blood Peripheral Pending Result Diagram: 10/14/16 14110/[id number]/161418 Assessment and Plan Problem List: (1) Overdose ICD Code: T50.901A Status: Acute (2) Elevated troponin ICD Code: R74.8 Status: Acute (3) Rhabdomyolysis ICD Code: M62.82 Status: Acute (4) DALTON (acute kidney injury) ICD Code: N17.9 Status: Acute (5) Leukocytosis ICD Code: D72.829 Status: Acute Assessment and Plan A/P: 1. Overdose: Suspected Unintentional Overdose w/ Morphine. On Morphine 100mg po TID per records, found unresponsive by EMS w/ GCS 5, RR 8, hypotensive, s/p Narcan 0.4mg x1 w/ immediate response. Remains lethargic, but rouses easily, not requiring additional Narcan. Will admit for Observation, Neuro Checks q4h. Hold narcotics. CT Head w/ no acute findings, images reviewed by me. 2. Elevated Trop: Trop 0.09, EKG w/ no acute ischemia. Check serial cardiac enzymes. Resume Metoprolol, ASA, Statin. Possibly related to acute renal insufficiency. 3. Rhabdomyolysis: CPK 815, IVF, check serial CPK. 4. DALTON: Creatinine 1.44, previously 0.86 on 08/21/16. U/a negative. IVF, repeat labs in am. 5. Leukocytosis: WBC 14.5, afebrile. CXR w/ no acute findings, images reviewed by me. U/a negative. Unclear source of infection. S/p Vanc/Zosyn in ER. Will continue w/ IV Abx, recheck labs in am. 6. DVT Prophylaxis: SCD/Teds. 7. Social work for d/c planning as needed. 8. Case discussed w/ ER physician at length Tonja Hugo MD Oct 14, 2016 19:25
[2016-10-14] MEDS ORDERED: LACTULOSE SYRUP 20 GM/30 ML CUP PO PRN (19:30)
[2016-10-14] MEDS ORDERED: MAGNESIUM HYDROXIDE SUSP 30 ML CUP PO PRN (19:30)
[2016-10-14] MEDS ORDERED: ONDANSETRON HCL 4 MG/2 ML VIAL IVP PRN (19:30)
[2016-10-14] MEDS ORDERED: ACETAMINOPHEN 325 MG TAB PO PRN (19:30)
[2016-10-14] MEDS ORDERED: BISACODYL 10 MG SUPP RECTAL PRN (19:30)
[2016-10-14] MEDS ORDERED: SENNOSIDES 8.6 MG TAB PO PRN (19:30)
[2016-10-14] MEDS ORDERED: SODIUM CHLORIDE 0.9% FLUSH 10 ML FLUSH IV FLUSH PRN (19:30)
[2016-10-14] MEDS ORDERED: PILL SPLITTER OTHER PRN (19:45)
[2016-10-14 19:58] LABS: AMPHETAMINE, URINE NEG (NEG); BARBITURATES, URINE NEG (NEG); COCAINE, URINE NEG (NEG)
[2016-10-14] MEDS: SODIUM CHLOR 0.9% 1000 ML INJ 1,000 ML IV SCH (20:08)
[2016-10-14 21:06] LABS: BLOOD, URINE MOD (NEG); COMMENT (UR) CULT NOT INDICATED; CULTURE IF INDICATED CULT NOT INDICATED; GLUCOSE,URINE TRACE mg/dL (NEG); HYALINE CAST, URINE 5 /lpf (RARE); KETONE, URINE NEG (NEG); MUCUS URINE FEW /lpf (OCC); NITRITE,URINE NEG (NEG); PH, URINE 5.5 (5.0-8.5); URINE COLOR LIGHT-YELLOW (YELLW/STRAW)
[2016-10-14] MEDS: SODIUM CHLORIDE 0.9% FLUSH 10 ML FLUSH IV FLUSH SCH (22:47)
[2016-10-14] MEDS: PRAVASTATIN SOD 40 MG TAB PO SCH (22:47)
[2016-10-14] MEDS: METOPROLOL TARTRATE 25 MG TAB PO SCH (22:47)
[2016-10-14] MEDS: DOCUSATE SODIUM 50 MG/SENNA 8.6 MG TAB PO SCH (23:20)
[2016-10-15] VITALS (7 sets, daily range): BP systolic 124–175; BP diastolic 60–79; PULSE 65–96; RESP 18; TEMP 97–98.1; O2SAT 93–98
[2016-10-15 03:15] LABS: CKMB 37.7 NG/ML (0.5-3.6)
[2016-10-15] MEDS: SODIUM CHLOR 0.9% 1000 ML INJ 1,000 ML IV SCH ×2 (05:22→16:06)
[2016-10-15] MEDS: METOPROLOL TARTRATE 25 MG TAB PO SCH ×2 (08:45→21:10)
[2016-10-15] MEDS: ASPIRIN EC 81 MG TABEC PO SCH (08:46)
[2016-10-15] MEDS: DOCUSATE SODIUM 50 MG/SENNA 8.6 MG TAB PO SCH ×2 (08:46→21:00)
[2016-10-15] MEDS: SODIUM CHLORIDE 0.9% FLUSH 10 ML FLUSH IV FLUSH SCH ×2 (08:47→21:11)
[2016-10-15] MEDS ORDERED: ACETAMINOPHEN 325 MG TAB PO PRN (09:30)
[2016-10-15] MEDS ORDERED: ACETAMINOPHEN/HYDROcodone 325 MG/5 MG TAB PO PRN (09:30)
[2016-10-15 09:37] LABS: AUTOMATED NEUTROPHIL # 6.9 TH/MM3 (1.8-7.7); BASOPHIL % 0.3 % (0.0-2.0); EOSINOPHIL # 0.2 TH/MM3 (0-0.4); EOSINOPHIL % 2.5 % (0.0-4.0); HEMO FLAGS DIFF FINAL; LYMPH % 16.5 % (9.0-44.0); LYMPHOCYTE # 1.5 TH/MM3 (1.0-4.8); MEAN CELL VOLUME 82.1 FL (80.0-100.0); MEAN CORPUSCULAR HEMOGLOBIN 26.1 PG (27.0-34.0); MEAN CORPUSCULAR HGB CONC 31.7 % (32.0-36.0); MONO % 6.7 % (0.0-8.0); PLATELET COUNT 195 TH/MM3 (150-450); RED BLOOD COUNT 4.02 MIL/MM3 (4.50-5.90); RED CELL DISTRIBUTION WIDTH 15.4 % (11.6-17.2); WHITE BLOOD COUNT 9.3 TH/MM3 (4.0-11.0)
--- NOTE | 2016-10-15 10:15 | HHI.PR ---
Subjective Remarks Follow up for unresponsive episode. The patient is currently AAOx4. He denies any medical complaints currently. His is at bedside. They adamantly believe the patient did not overdose on his medications. They report he has been on his chronic pain medications for over 15 years now. He reports never abusing his medications. There have been no recent adjustments in medications. He took 1 oral morphine 100mg early yesterday morning around 6am, and lortab 10mg x3 throughout the morning from 5am to 1pm, however then the last thing he remembers is sitting down eating chicken and rice for lunch. He denies having any lightheadedness, dizziness, blurred vision, chest pain, palpitations, or shortness of breath prior to the episode. The patient's found him unresponsive on the floor and she estimates he was probably there for any hour. This has never happened previously. Objective Vitals Vital Signs Date Time Temp Pulse Resp B/P Pulse Ox O2 Delivery O2 Flow Rate FiO2 10/15/16 08:30 97.0 92 18 160/62 96 10/15/16 03:12 97.8 70 18 124/60 93 10/15/16 00:00 65 10/14/16 23:51 98.5 67 18 117/57 92 10/14/16 22:45 84 16 137/63 99 Room Air 10/14/16 19:00 95 16 164/84 95 Room Air 10/14/16 17:35 79 16 148/66 95 Room Air 10/14/16 14:30 100 18 152/68 98 Room Air 10/14/16 14:17 99 Room Air 10/14/16 14:17 100 22 99 Room Air 10/14/16 14:05 98.8 99 24 149/70 100 I/O 10/14/16 10/14/16 10/14/16 10/15/16 10/15/16 10/15/16 06:59 14:59 22:59 06:59 14:59 22:59 Intake Total 1250 ml Balance 1250 ml Intake IV Total 1250 ml # Voids 3 Result Diagram: 10/15/16 0818 10/14/16 1419 Imaging Last Impressions Head CT 10/14/16 1509 Signed Impressions: Service Date/Time: Friday, October 14, 2016 16:58 - CONCLUSION: 1. No acute findings. Stable remote infarct left frontal lobe. Chip Guerrero MD Chest X-Ray 10/14/16 7095 Signed Impressions: Service Date/Time: Friday, October 14, 2016 15:26 - CONCLUSION: Compensated cardiomegaly otherwise negative Board Certified Radiologist. This report was verified electronically. Objective Remarks GENERAL: Well-nourished, well-developed male patient in NAD. SKIN: Warm and dry. No rash. HEENT: Normocephalic. Atraumatic.Pupils equal and round. Mucous membranes pink and moist. NECK: Supple. Trachea midline. CARDIOVASCULAR: Regular rate and rhythm. S1, S2 noted. No murmur appreciated. RESPIRATORY: No accessory muscle use. Clear to auscultation. Breath sounds equal bilaterally. GASTROINTESTINAL: Abdomen soft, non-tender, nondistended. Normoactive bowel sounds x4. MUSCULOSKELETAL: No obvious deformities. Extremities without clubbing, cyanosis , or edema. NEUROLOGICAL: Awake and alert. No obvious cranial nerve deficits. Motor grossly within normal limits. 5/5 muscle strength in bilateral upper and lower extremities. Normal speech. PSYCHIATRIC: Appropriate mood and affect; insight and judgment normal. Medications and IVs Current Medications Medications (Trade) Dose Ordered Sig/Abdi Route Start Time Stop Time Status Last Admin (NS 1000 ml Inj) 1,000 ml @ 100 mls/hr Q10H IV 10/14/16 19:22 10/15/16 05:22 (NS Flush) 2 ml UNSCH PRN IV FLUSH 10/14/16 19:30 (NS Flush) 2 ml BID IV FLUSH 10/14/16 21:00 10/14/16 22:47 (Zofran Inj) 4 mg Q6H PRN IVP 10/14/16 19:30 (Tylenol) 650 mg Q6H PRN PO 10/14/16 19:30 (Debo-Colace) 1 tab BID PO 10/14/16 21:00 10/15/16 08:46 (Milk Of Magnesia Liq) 30 ml Q12H PRN PO 10/14/16 19:30 (Senokot) 17.2 mg Q12H PRN PO 10/14/16 19:30 (Dulcolax Supp) 10 mg DAILY PRN RECTAL 10/14/16 19:30 (Lactulose Liq) 30 ml DAILY PRN PO 10/14/16 19:30 (Ecotrin Ec) 81 mg DAILY PO 10/15/16 09:00 10/15/16 08:46 (Pravachol) 40 mg HS PO 10/14/16 21:00 10/14/16 22:47 (Lopressor) 12.5 mg Q12HR PO 10/14/16 21:00 10/15/16 08:45 Miscellaneous 1 ea 1 ea UNSCH PRN OTHER 10/14/16 19:45 Ceftriaxone Sodium 1000 mg/ Sodium Chloride 100 ml @ 200 mls/hr Q24H IV 10/15/16 22:00 (Zithromax Inj/ NS 250 ml Inj) 250 ml @ 250 mls/hr Q24H IV 10/15/16 22:00 (Tylenol) 650 mg Q6H PRN PO 10/15/16 09:30 UNV ([place] 5-325 Mg) 1 tab Q4H PRN PO 10/15/16 09:30 UNV ([place] 10-325 Mg) 1 tab Q4H PRN PO 10/15/16 09:30 UNV A/P Problem List: (1) Overdose ICD Code: T50.901A Status: Acute (2) Elevated troponin ICD Code: R74.8 Status: Acute (3) Rhabdomyolysis ICD Code: M62.82 Status: Acute (4) DALTON (acute kidney injury) ICD Code: N17.9 Status: Acute (5) Leukocytosis ICD Code: D72.829 Status: Acute Assessment and Plan 66-year-old male with a PMH of Depression, HTN, Hyperlipidemia and Chronic Back Pain was brought to ER by EMS after being found unresponsive by . Toxic Encephalopathy secondary to Overdose: Suspected Unintentional Overdose w / Morphine. On Morphine 100mg po TID and Lortab 10mg q6h prn per records, found unresponsive by EMS w/ GCS 5, RR 8, hypotensive, s/p Narcan 0.4mg x1 w/ immediate response. Monitor Neuro Checks q4h. Encephalopathy resolved, patient AAOx4. Restart narcotic slowly with Lortab only. Unresponsive Episode: suspect secondary to overdose however need to rule out other etiologies. Head CT images reviewed, no acute findings. Echocardiogram with normal systolic function, EF 55-60%. Check carotid U/S. Check EEG. Monitor on telemetry. Consult cardiology. Elevated Trop: Trop 0.09, EKG w/ no acute ischemia. Check serial cardiac enzymes. Resume Metoprolol, ASA, Statin. Possibly related to acute renal insufficiency. Patient reports he was supposed to have Nuclear Stress Test as outpatient with Dr. Guerrero. Will consult cardiology. Rhabdomyolysis: Suspect secondary to overdose and fall. CPK 815 --> 1318. Continue IVF. Monitor serial CPK. DALTON: Creatinine 1.44, previously 0.86 on 08/21/16. U/a negative. IVF, repeat labs today pending. Leukocytosis: WBC 14.5, afebrile. CXR w/ no acute findings, images reviewed by me. U/a negative. Blood cultures collected. Unclear source of infection. S/ p Vanc/Zosyn in ER. Will continue w/ IV Abx, repeat labs today pending. DVT Prophylaxis: SCD/Teds. Rebecca Alfaro PA-C Oct 15, 2016 10:15 am
[2016-10-15] MEDS: ACETAMINOPHEN/HYDROcodone 325 MG/10 MG TAB PO PRN ×3 (10:16→21:14)
[2016-10-15 10:17] LABS: ALKALINE PHOSPHATASE 75 U/L (45-117); ALT (GPT) 25 U/L (12-78); ANION GAP 8 MEQ/L (5-15); AST (GOT) 50 U/L (15-37); BICARBONATE 24.2 MEQ/L (21.0-32.0); BLOOD UREA NITROGEN 17 MG/DL (7-18); CHLORIDE 112 MEQ/L (98-107); CREATINE KINASE 990 U/L (39-308); GLOMERULAR FILTRATION RATE 82 ML/MIN (>89); SODIUM (NA) 144 MEQ/L (136-145); TOTAL BILIRUBIN ADULT 0.8 MG/DL (0.2-1.0)
[2016-10-15 10:34] LABS: CKMB 24.4 NG/ML (0.5-3.6)
--- NOTE | 2016-10-15 10:51 | RADRPT ---
EXAM DATE/TIME: 10/15/2016 10:21 [facility] COMPARISON: No previous studies available for comparison. INDICATIONS : Syncope. MEDICAL HISTORY : Hypertension. Hypercholesterolemia. SURGICAL HISTORY : Inguinal hernia repair. Thoracic surgery. ENCOUNTER: Initial ACUITY: 1 day PAIN SCORE: 6/10 LOCATION: Bilateral neck PEAK SYSTOLIC VELOCITIES (cm/sec): ICA/CCA RATIO: Right: 1.0 Left: 0.8 ICA: Right: 103 Left: 94 CCA: Right: 108 Left: 118 ECA: Right: 115 Left: 94 VERTEBRAL: Right: 64 antegrade Left: 80 retrograde Elevated flow velocities and ICA/CCA ratios have been found to correlate with increased degrees of vessel stenosis, calculated as percentage of diameter relative to a normal segment of distal ICA/CCA FINDINGS: RIGHT CAROTID: There is mild atherosclerotic plaquing at the bifurcation. No significant stenosis is visualized. Th e waveforms are within normal limits. LEFT CAROTID: There is mild atherosclerotic plaquing at the origin of the internal carotid artery. No significant s tenosis is visualized. The waveforms are within normal limits. VERTEBRAL ARTERIES: Antegrade flow is seen in both vertebral arteries. MISCELLANEOUS: None. CONCLUSION: Mild atherosclerotic plaquing of both carotid systems. No high-grade or hemodynamically significant s tenosis.. Darren Velázquez MD on October 15, 2016 at 10:48 Board Certified Radiologist. This report was verified electronically.
--- NOTE | 2016-10-15 11:26 | HHI.PR ---
Objective Vitals Vital Signs Date Time Temp Pulse Resp B/P Pulse Ox O2 Delivery O2 Flow Rate FiO2 10/15/16 08:45 78 10/15/16 08:30 97.0 92 18 160/62 96 10/15/16 03:12 97.8 70 18 124/60 93 10/15/16 00:00 65 10/14/16 23:51 98.5 67 18 117/57 92 10/14/16 22:45 84 16 137/63 99 Room Air 10/14/16 19:00 95 16 164/84 95 Room Air 10/14/16 17:35 79 16 148/66 95 Room Air 10/14/16 14:30 100 18 152/68 98 Room Air 10/14/16 14:17 99 Room Air 10/14/16 14:17 100 22 99 Room Air 10/14/16 14:05 98.8 99 24 149/70 100 I/O 10/14/16 10/14/16 10/14/16 10/15/16 10/15/16 10/15/16 06:59 14:59 22:59 06:59 14:59 22:59 Intake Total 1250 ml Balance 1250 ml Intake IV Total 1250 ml # Voids 3 Result Diagram: 10/15/16 0818 10/15/16 0818 A/P Problem List: (1) Overdose ICD Code: T50.901A Status: Acute (2) Elevated troponin ICD Code: R74.8 Status: Acute (3) Rhabdomyolysis ICD Code: M62.82 Status: Acute (4) DALTON (acute kidney injury) ICD Code: N17.9 Status: Acute (5) Leukocytosis ICD Code: D72.829 Status: Acute Alexandra Collins MD Oct 15, 2016 11:26
--- NOTE | 2016-10-15 11:45 | PD.CONS ---
HPI Consult Requested By Primary Care Physician Sunday Forrester MD History of Present Illness 66 y/o M with cardiac risk factors that included HTN, hyperlipidemia, obesity, former smoker that presents to the ED with confusion, syncope in the setting chronic opioid intake. He was found down by . Denied cardiovascular complaints. EMS gave him Narcan with resolution of symptoms. Cardiac markers minimally elevated and EKG unremarkable. Cardiology consulted for further management and evaluation. Of note he was admitted in March with sepsis and back pain after back surgery, at that time Cardiology was consulted for elevated troponin however given active infection and no CV complaints no ischemic workup was pursue at that time. His followed at the office and was schedule to have a Lexiscan Stress test next week. Review of Systems Consitutional: DENIES: Fatigue, Fever, Chills, Weight gain, Weight loss Eyes: DENIES: Amaurosis Fugax, Change in vision HEENT: DENIES: Lightheadedness, Change in hearing Respiratory: DENIES: See HPI, Cough, Snoring, Shortness of breath, Wheezing, Sputum production Cardiovascular: DENIES: See HPI, Chest pain, Palpitations, Syncope, Tachycardia Gastrointestinal: DENIES: Nausea, Vomiting, Change in bowel habits, Reflux, Bloody stools, Melena Genitourinary: DENIES: Urinary incontinence, Difficulty voiding Integumentary: DENIES: Rash Neurologic: DENIES: Tingling or numbness, Memory problems, Poor Balance, Stroke symptoms Musculoskeletal: DENIES: Joint pain, Muscle pain, Limited range of motion, Back pain Psychiatric: DENIES: Anxiety, Depression, Sleep disturbances Hematologic: DENIES: Bruising tendencies, Bleeding tendencies Endocrine: DENIES: Weight gain, Weight loss, Thyroid disease Past Family Social History Allergies: Coded Allergies: Mushroom (Unverified Allergy, Severe, Shortness of Breath, 09/07/16) *MDRO Multi-Drug Resistant Organism (Verified Adverse Reaction, Unknown, ) MRSA (hand wound) - 05/2013 MRSA PCR Screen POSITIVE - 08/18/2016 Past Medical History Hypertension Dyslipidemia Chronic low back pain Chronic narcotic use Depression Chronic diastolic heart failure Past Surgical History Past Surgical History Vasectomy Right finger I&D for MRSA Hernia repair L3/4/L4/L5 transforaminal interbody fusion Reported Medications Reported Meds & Active Scripts Active Metoprolol Tartrate 25 Mg Tab 12.5 Mg PO Q12HR 30 Days Hydrocodone-Acetaminophen 10-325 mg Tab 1 Tab PO Q4HR PRN Reported Stool Softener (Docusate Sodium) 100 Mg Cap 100 Mg PO DAILY PRN Ambien (Zolpidem Tartrate) 5 Mg Tab 5 Mg PO HS PRN Aspirin Adult Low Strength (Aspirin) 81 Mg Tabdr 81 Mg PO DAILY Paroxetine (Paroxetine HCl) 40 Mg Tab 40 Mg PO DAILY Lovastatin 40 Mg Tab 40 Mg PO HS Lisinopril 20 Mg Tab 20 Mg PO DAILY Morphine Sulfate CR (Morphine Sulfate) 100 Mg Tab 100 Mg PO TID Active Ordered Medications Current Medications Medications (Trade) Dose Ordered Sig/Abdi Route Start Time Stop Time Status Last Admin (NS 1000 ml Inj) 1,000 ml @ 100 mls/hr Q10H IV 10/14/16 19:22 10/15/16 05:22 (NS Flush) 2 ml UNSCH PRN IV FLUSH 10/14/16 19:30 (NS Flush) 2 ml BID IV FLUSH 10/14/16 21:00 10/14/16 22:47 (Zofran Inj) 4 mg Q6H PRN IVP 10/14/16 19:30 (Tylenol) 650 mg Q6H PRN PO 10/14/16 19:30 (Debo-Colace) 1 tab BID PO 10/14/16 21:00 10/15/16 08:46 (Milk Of Magnesia Liq) 30 ml Q12H PRN PO 10/14/16 19:30 (Senokot) 17.2 mg Q12H PRN PO 10/14/16 19:30 (Dulcolax Supp) 10 mg DAILY PRN RECTAL 10/14/16 19:30 (Lactulose Liq) 30 ml DAILY PRN PO 10/14/16 19:30 (Ecotrin Ec) 81 mg DAILY PO 10/15/16 09:00 10/15/16 08:46 (Pravachol) 40 mg HS PO 10/14/16 21:00 10/14/16 22:47 (Lopressor) 12.5 mg Q12HR PO 10/14/16 21:00 10/15/16 08:45 Miscellaneous 1 ea 1 ea UNSCH PRN OTHER 10/14/16 19:45 Ceftriaxone Sodium 1000 mg/ Sodium Chloride 100 ml @ 200 mls/hr Q24H IV 10/15/16 22:00 (Zithromax Inj/ NS 250 ml Inj) 250 ml @ 250 mls/hr Q24H IV 10/15/16 22:00 (Tylenol) 650 mg Q6H PRN PO 10/15/16 09:30 ([place] 5-325 Mg) 1 tab Q4H PRN PO 10/15/16 09:30 ([place] 10-325 Mg) 1 tab Q4H PRN PO 10/15/16 09:30 10/15/16 10:16 Physical Exam Vital Signs Vital Signs Date Time Temp Pulse Resp B/P Pulse Ox O2 Delivery O2 Flow Rate FiO2 10/15/16 08:45 78 10/15/16 08:30 97.0 92 18 160/62 96 10/15/16 03:12 97.8 70 18 124/60 93 10/15/16 00:00 65 10/14/16 23:51 98.5 67 18 117/57 92 10/14/16 22:45 84 16 137/63 99 Room Air 10/14/16 19:00 95 16 164/84 95 Room Air 10/14/16 17:35 79 16 148/66 95 Room Air 10/14/16 14:30 100 18 152/68 98 Room Air 10/14/16 14:17 99 Room Air 10/14/16 14:17 100 22 99 Room Air 10/14/16 14:05 98.8 99 24 149/70 100 Physical Exam GENERAL: Well-nourished, well-developed patient. SKIN: Warm and dry. HEAD: Normocephalic. EYES: No scleral icterus. No injection or drainage. NECK: Supple, trachea midline. No JVD or lymphadenopathy. CARDIOVASCULAR: Regular rate and rhythm without murmurs, gallops, or rubs. RESPIRATORY: Breath sounds equal bilaterally. No accessory muscle use. GASTROINTESTINAL: Abdomen soft, non-tender, nondistended. EXTREMITIES: No cyanosis, or edema. NEUROLOGICAL: Awake, alert, and oriented x 3. Non-focal. Laboratory Laboratory Tests Test 10/14/16 10/14/16 10/14/16 10/14/16 14:19 14:50 16:02 19:30 White Blood Count 14.5 Red Blood Count 4.09 Hemoglobin 10.8 Hematocrit 33.2 Mean Corpuscular Volume 81.2 Mean Corpuscular Hemoglobin 26.4 Mean Corpuscular Hemoglobin 32.5 Concent Red Cell Distribution Width 15.1 Platelet Count 220 Mean Platelet Volume 8.8 Neutrophils (%) (Auto) 75.1 Lymphocytes (%) (Auto) 14.9 Monocytes (%) (Auto) 7.4 Eosinophils (%) (Auto) 2.4 Basophils (%) (Auto) 0.2 Neutrophils # (Auto) 10.9 Lymphocytes # (Auto) 2.2 Monocytes # (Auto) 1.1 Eosinophils # (Auto) 0.3 Basophils # (Auto) 0.0 CBC Comment DIFF FINAL Differential Comment Prothrombin Time 10.8 Prothromb Time International 1.0 Ratio Activated Partial 26.4 Thromboplast Time Sodium Level 138 Potassium Level 3.8 Chloride Level 103 Carbon Dioxide Level 25.8 Anion Gap 9 Blood Urea Nitrogen 24 Creatinine 1.44 Estimat Glomerular Filtration 49 Rate Random Glucose 150 Calcium Level 9.1 Total Bilirubin 0.8 Aspartate Amino Transf 35 (AST/SGOT) Alanine Aminotransferase 24 (ALT/SGPT) Alkaline Phosphatase 82 Total Creatine Kinase 815 Creatine Kinase MB 24.2 Creatine Kinase MB % 3.0 Troponin I 0.09 Total Protein 7.3 Albumin 3.7 Acetaminophen Level LESS THAN 2.0 Ethyl Alcohol Level 3 Lactic Acid Level 1.4 Salicylates Level LESS THAN 1.7 Urine Color LIGHT-YELLOW Urine Turbidity CLEAR Urine pH 5.5 Urine Specific [place] 1.009 Urine Protein NEG Urine Glucose (UA) TRACE Urine Ketones NEG Urine Occult Blood MOD Urine Nitrite NEG Urine Bilirubin NEG Urine Urobilinogen LESS THAN 2.0 Urine Leukocyte Esterase NEG Urine WBC LESS THAN 1 Urine Hyaline Casts 5 Urine Mucus FEW Microscopic Urinalysis Comment CULT NOT INDICATED Urine Opiates Screen POS Urine Barbiturates Screen NEG Urine Amphetamines Screen NEG Urine Benzodiazepines Screen NEG Urine Cocaine Screen NEG Urine Cannabinoids Screen NEG Test 10/15/16 10/15/16 01:50 08:18 Total Creatine Kinase 1318 990 Creatine Kinase MB 37.7 24.4 Creatine Kinase MB % 2.9 2.5 Troponin I 0.07 0.05 White Blood Count 9.3 Red Blood Count 4.02 Hemoglobin 10.5 Hematocrit 33.0 Mean Corpuscular Volume 82.1 Mean Corpuscular Hemoglobin 26.1 Mean Corpuscular Hemoglobin 31.7 Concent Red Cell Distribution Width 15.4 Platelet Count 195 Mean Platelet Volume 8.9 Neutrophils (%) (Auto) 74.0 Lymphocytes (%) (Auto) 16.5 Monocytes (%) (Auto) 6.7 Eosinophils (%) (Auto) 2.5 Basophils (%) (Auto) 0.3 Neutrophils # (Auto) 6.9 Lymphocytes # (Auto) 1.5 Monocytes # (Auto) 0.6 Eosinophils # (Auto) 0.2 Basophils # (Auto) 0.0 CBC Comment DIFF FINAL Differential Comment Sodium Level 144 Potassium Level 4.0 Chloride Level 112 Carbon Dioxide Level 24.2 Anion Gap 8 Blood Urea Nitrogen 17 Creatinine 0.93 Estimat Glomerular Filtration 82 Rate Random Glucose 113 Calcium Level 8.8 Total Bilirubin 0.8 Aspartate Amino Transf 50 (AST/SGOT) Alanine Aminotransferase 25 (ALT/SGPT) Alkaline Phosphatase 75 Total Protein 6.5 Albumin 3.2 Date/Time Procedure Status Source Growth 10/14/16 14:50 Aerobic Blood Culture - Preliminary Resulted Blood Peripheral NO GROWTH IN 1 DAY 10/14/16 14:50 Anaerobic Blood Culture - Preliminary Resulted Blood Peripheral NO GROWTH IN 1 DAY Result Diagram: 10/15/16 0818 10/15/16 0818 Imaging Last Impressions Carotid Artery Ultrasound 10/15/16 0000 Signed Impressions: Service Date/Time: Saturday, October 15, 2016 10:21 - CONCLUSION: Mild atherosclerotic plaquing of both carotid systems. No high-grade or hemodynamically significant stenosis.. Darren Velázquez MD Head CT 10/14/16 1509 Signed Impressions: Service Date/Time: Friday, October 14, 2016 16:58 - CONCLUSION: 1. No acute findings. Stable remote infarct left frontal lobe. Chip Guerrero MD Chest X-Ray 10/14/16 1509 Signed Impressions: Service Date/Time: Friday, October 14, 2016 15:26 - CONCLUSION: Compensated cardiomegaly otherwise negative Board Certified Radiologist. This report was verified electronically. Assessment and Plan Problem List: (1) Elevated troponin Assessment and Plan: 66 y/o M with LOC/Syncope/MS and minimal elevated troponin. Unremarkable EKG and telemetry. No CV complaints. Syncope/MS can be explained by opiates overdose, which was reverse by Narcan. However he does have significant risk factors for CAD. Recommendations: 1. Continue Home Cardiac Medication 2. Lexiscan Stress test (2) HTN (hypertension) (3) Overdose Black Delgado MD Oct 15, 2016 11:45
--- NOTE | 2016-10-15 11:56 | EKG ---
Date Performed: 10/14/2016 Time Performed: 16:11:50 PTAGE: 66 years EKG: Sinus rhythm INFERIOR MYOCARDIAL INFARCTION Since previous tracing, no significant change noted ABNORMAL ECG PREVIOUS TRACING : 08/18/2016 20.17 DOCTOR: Jace Payne Interpretating Date/Time 10/15/2016 11:54:11
[2016-10-15] MEDS ORDERED: REGADENOSON INJ 0.4 MG/5 ML SYR ONE (17:34)
--- NOTE | 2016-10-15 18:49 | RADRPT ---
EXAM DATE/TIME: 10/15/2016 17:09 [facility] COMPARISON: No previous studies available for comparison. INDICATIONS : Cardiomegaly and syncope. Coronary atherosclerosis. DOSE: 35 mCi Tc99m Myoview at stress. 11 mCi Tc99m Myoview at rest. 0.4 mg Lexiscan STRESS SYMPTOMS: Short of breath. EJECTION FRACTION: 41% MEDICAL HISTORY : Hypercholesterolemia. Hypertension. Smoker. SURGICAL HISTORY : Vasectomy. ENCOUNTER: Initial ACUITY: 1 day PAIN SCALE: 2/10 LOCATION: Bilateral chest TECHNIQUE: The patient underwent pharmacologic stress with infusion of prescribed dose. Continuous ECG tracing was monitored during stress. Gated SPECT imaging was performed after stress and conventional SPECT i maging was performed at rest. The examination was performed on a SPECT/CT scanner, both attenuation and non-corrected datasets were reviewed. FINDINGS: The gated cine loop images demonstrate inferior wall hypokinesis. Left ventricular ejection fraction is calculated at 41%. The cardiac SPECT stress and rest images demonstrate fixed defects involving the inferior wall indica ting RCA infarct. No reversible defects are noted to suggest ischemia. CONCLUSION: 1. Fixed defect involving the inferior wall suggesting RCA infarct. Clinical correlation is recomme nded. 2. Inferior wall hypokinesis with left ventricular ejection fraction equaling 41%. RISK CATEGORY: Intermediate risk (1 - 3% annual mortality rate) Ifeanyi Cortés MD on October 15, 2016 at 18:35 Board Certified Radiologist. This report was verified electronically.
[2016-10-15] MEDS: PRAVASTATIN SOD 40 MG TAB PO SCH (21:19)
[2016-10-15] MEDS ORDERED: cefTRIAXone INJ 1,000 MG in SODIUM CHLORIDE 0.9% INJ 100 ML IV SCH (22:00)
[2016-10-15] MEDS ORDERED: AZITHROMYCIN INJ 500 MG in SODIUM CHLOR 0.9% 250 ML INJ 250 ML IV SCH (22:00)
[2016-10-16 04:23] VITALS: BP 189/88; PULSE 81; RESP 18; TEMP 98.1; O2SAT 97
[2016-10-16] MEDS: SODIUM CHLOR 0.9% 1000 ML INJ 1,000 ML IV SCH (04:30)
[2016-10-16] MEDS: ACETAMINOPHEN/HYDROcodone 325 MG/10 MG TAB PO PRN (04:31)
[2016-10-16] MEDS: LISINOPRIL 20 MG TAB PO SCH ×2 (05:13→08:50)
[2016-10-16 05:35] VITALS: RESP 20
[2016-10-16 06:28] VITALS: BP 176/72; PULSE 77
[2016-10-16 08:18] VITALS: BP 165/73; PULSE 76; TEMP 98.6; O2SAT 95
[2016-10-16] MEDS: SODIUM CHLORIDE 0.9% FLUSH 10 ML FLUSH IV FLUSH SCH (08:50)
[2016-10-16] MEDS: ASPIRIN EC 81 MG TABEC PO SCH (08:50)
[2016-10-16] MEDS: DOCUSATE SODIUM 50 MG/SENNA 8.6 MG TAB PO SCH (08:50)
[2016-10-16] MEDS: METOPROLOL TARTRATE 25 MG TAB PO SCH (08:50)
[2016-10-16] MEDS ORDERED: PARoxetine HCL 20 MG TAB PO SCH (09:00)
--- NOTE | 2016-10-16 09:31 | PD.CARD.PN ---
Subjective Subjective Remarks no overnight events no CV complaints Objective Medications Current Medications Medications (Trade) Dose Ordered Sig/Abdi Route Start Time Stop Time Status Last Admin (NS 1000 ml Inj) 1,000 ml @ 100 mls/hr Q10H IV 10/14/16 19:22 10/16/16 04:30 (NS Flush) 2 ml UNSCH PRN IV FLUSH 10/14/16 19:30 (NS Flush) 2 ml BID IV FLUSH 10/14/16 21:00 10/15/16 21:11 (Zofran Inj) 4 mg Q6H PRN IVP 10/14/16 19:30 (Tylenol) 650 mg Q6H PRN PO 10/14/16 19:30 (Debo-Colace) 1 tab BID PO 10/14/16 21:00 10/15/16 08:46 (Milk Of Magnesia Liq) 30 ml Q12H PRN PO 10/14/16 19:30 (Senokot) 17.2 mg Q12H PRN PO 10/14/16 19:30 (Dulcolax Supp) 10 mg DAILY PRN RECTAL 10/14/16 19:30 (Lactulose Liq) 30 ml DAILY PRN PO 10/14/16 19:30 (Ecotrin Ec) 81 mg DAILY PO 10/15/16 09:00 10/16/16 08:50 (Pravachol) 40 mg HS PO 10/14/16 21:00 10/15/16 21:19 (Lopressor) 12.5 mg Q12HR PO 10/14/16 21:00 10/16/16 08:50 Miscellaneous 1 ea 1 ea UNSCH PRN OTHER 10/14/16 19:45 Ceftriaxone Sodium 1000 mg/ Sodium Chloride 100 ml @ 200 mls/hr Q24H IV 10/15/16 22:00 10/15/16 21:16 (Zithromax Inj/ NS 250 ml Inj) 250 ml @ 250 mls/hr Q24H IV 10/15/16 22:00 10/15/16 22:21 (Tylenol) 650 mg Q6H PRN PO 10/15/16 09:30 ([place] 5-325 Mg) 1 tab Q4H PRN PO 10/15/16 09:30 ([place] 10-325 Mg) 1 tab Q4H PRN PO 10/15/16 09:30 10/16/16 04:31 (Prinivil) 20 mg DAILY PO 10/16/16 05:00 10/16/16 08:50 (Paxil) 40 mg DAILY PO 10/16/16 09:00 10/16/16 08:50 Vital Signs / I&O Vital Signs Date Time Temp Pulse Resp B/P Pulse Ox O2 Delivery O2 Flow Rate FiO2 10/16/16 08:18 98.6 76 165/73 95 10/16/16 06:28 77 176/72 10/16/16 05:35 20 10/16/16 04:23 98.1 81 18 189/88 97 10/15/16 23:58 98.1 84 18 172/79 98 10/15/16 20:20 98.1 96 18 171/68 95 10/15/16 20:20 93 10/15/16 12:20 97.9 87 18 175/70 95 I/O 10/15/16 10/15/16 10/15/16 10/16/16 10/16/16 10/16/16 07:00 15:00 23:00 07:00 15:00 23:00 Intake Total 1250 ml 300 ml Output Total 4 ml Balance 1250 ml 296 ml Intake Oral 300 ml IV Total 1250 ml Output Stool Total 4 ml # Voids 3 4 Physical Exam GENERAL: Well-nourished, well-developed patient. SKIN: Warm and dry. HEAD: Normocephalic. EYES: No scleral icterus. No injection or drainage. NECK: Supple, trachea midline. No JVD or lymphadenopathy. CARDIOVASCULAR: Regular rate and rhythm without murmurs, gallops, or rubs. RESPIRATORY: Breath sounds equal bilaterally. No accessory muscle use. GASTROINTESTINAL: Abdomen soft, non-tender, nondistended. EXTREMITIES: No cyanosis, or edema. NEUROLOGICAL: Awake, alert, and oriented x 3. Non-focal. Imaging Last Impressions Myocardial Perfusion Scan Nuc Med 10/15/16 0000 Signed Impressions: Service Date/Time: Saturday, October 15, 2016 17:09 - CONCLUSION: 1. Fixed defect involving the inferior wall suggesting RCA infarct. Clinical correlation is recommended. 2. Inferior wall hypokinesis with left ventricular ejection fraction equaling 41%%. RISK CATEGORY: Intermediate risk (1 - 3%% annual mortality rate) Ifeanyi Cortés MD Carotid Artery Ultrasound 10/15/16 0000 Signed Impressions: Service Date/Time: Saturday, October 15, 2016 10:21 - CONCLUSION: Mild atherosclerotic plaquing of both carotid systems. No high-grade or hemodynamically significant stenosis.. Darren Velázquez MD Head CT 10/14/16 1509 Signed Impressions: Service Date/Time: Friday, October 14, 2016 16:58 - CONCLUSION: 1. No acute findings. Stable remote infarct left frontal lobe. Chip Guerrero MD Chest X-Ray 10/14/16 1509 Signed Impressions: Service Date/Time: Friday, October 14, 2016 15:26 - CONCLUSION: Compensated cardiomegaly otherwise negative Board Certified Radiologist. This report was verified electronically. MD Assessment and Plan Problem List: (1) Elevated troponin Assessment and Plan: Results of the MPI noted. Fixed defect old myocardial infarction. No CV complaints. Syncope/LOC can be explained by narcotics overdose. Recs: Stable from CV standpoint to be d/c home Cont CV home meds Follow up with me as scheduled (2) HTN (hypertension) (3) Overdose Black Delgado MD Oct 16, 2016 09:31
--- NOTE | 2016-10-16 09:50 | HHI.DCPOC ---
Discharge Care Plan Diagnosis: (1) Unresponsive episode (2) DALTON (acute kidney injury) (3) HTN (hypertension) (4) Chronic low back pain Goals to Promote Your Health * To prevent worsening of your condition and complications * To maintain your health at the optimal level Directions to Meet Your Goals Take your medications as prescribed Follow your dietary instruction Follow activity as directed Keep your appointments as scheduled Take your immunizations and boosters as scheduled If your symptoms worsen call your PCP, if no PCP go to Urgent Care Center or Emergency Room Smoking is Dangerous to Your Health. Avoid second hand smoke Call the 24-hour hour crisis hotline for domestic abuse at Rebecca Alfaro PA-C Oct 16, 2016 9:50 am
--- NOTE | 2016-10-16 09:57 | HHI.DS ---
Discharge Summary Admission Date Oct 14, 2016 at 19:24 Discharge Date: Oct 16, 2016 Admitting Diagnosis altered mental status. Acute kidney injury. Elevated troponin. (1) Overdose ICD Code: T50.901A Diagnosis: Principal (2) Elevated troponin ICD Code: R74.8 Diagnosis: Principal (3) Rhabdomyolysis ICD Code: M62.82 Diagnosis: Principal (4) DALTON (acute kidney injury) ICD Code: N17.9 Diagnosis: Principal (5) Leukocytosis ICD Code: D72.829 Diagnosis: Principal Procedures lexiscan Brief History - From Admission This is a 66-year-old male with a PMH of Depression, HTN, Hyperlipidemia and Chronic Back Pain was brought to ER by EMS after being found unresponsive by . Per , patient noted to be significantly lethargic since yesterday, today she found patient lying on the floor unresponsive. states pt normally takes Morphine 100mg. Per EMS report, pt found w/ GCS 5, BP 66/33 HR 50, RR 8 s/p Narcan 0.4mg w/ immediate response, requiring restraints due to agitation. Pt unable to provide history. On arrival, BP 149/70, HR 99, O2 sat 100% on RA, Afebrile. WBC 14.5. Creatinine 1.44, previously 0.86 on 08/21/16. Acid 1.4. Troponin 0.09. CPK 8:15. UA negative. Urine Drug Screen positive for Opiates. CXR with no acute findings. CT Head stable remote infarct left frontal lobe, no acute findings noted. While in ER, pt has not required additional dose of Narcan. Remains lethargic, but rouses easily. CBC/BMP: 10/15/16 0818 10/15/16 0818 Significant Findings Laboratory Tests Test 10/14/16 10/14/16 10/14/16 10/15/16 14:19 16:02 19:30 01:50 White Blood Count 14.5 TH/MM3 (4.0-11.0) Red Blood Count 4.09 MIL/MM3 (4.50-5.90) Hemoglobin 10.8 GM/DL (13.0-17.0) Hematocrit 33.2 % (39.0-51.0) Mean Corpuscular Hemoglobin 26.4 PG (27.0-34.0) Neutrophils (%) (Auto) 75.1 % (16.0-70.0) Neutrophils # (Auto) 10.9 TH/MM3 (1.8-7.7) Monocytes # (Auto) 1.1 TH/MM3 (0-0.9) Blood Urea Nitrogen 24 MG/DL (7-18) Creatinine 1.44 MG/DL (0.60-1.30) Estimat Glomerular Filtration 49 ML/MIN (>89) Rate Random Glucose 150 MG/DL (74-106) Total Creatine Kinase 815 U/L 1318 U/L (39-308) (39-308) Creatine Kinase MB 24.2 NG/ML 37.7 NG/ML (0.5-3.6) (0.5-3.6) Troponin I 0.09 NG/ML 0.07 NG/ML (0.02-0.05) (0.02-0.05) Acetaminophen Level LESS THAN 2.0 MCG/ML (10.0-30.0) Salicylates Level LESS THAN 1.7 MG/DL (2.8-20.0) Urine Occult Blood MOD (NEG) Urine Mucus FEW /lpf (OCC) Urine Opiates Screen POS (NEG) Test 10/15/16 08:18 Red Blood Count 4.02 MIL/MM3 (4.50-5.90) Hemoglobin 10.5 GM/DL (13.0-17.0) Hematocrit 33.0 % (39.0-51.0) Mean Corpuscular Hemoglobin 26.1 PG (27.0-34.0) Mean Corpuscular Hemoglobin 31.7 % Concent (32.0-36.0) Neutrophils (%) (Auto) 74.0 % (16.0-70.0) Chloride Level 112 MEQ/L (98-107) Estimat Glomerular Filtration 82 ML/MIN (>89) Rate Random Glucose 113 MG/DL (74-106) Aspartate Amino Transf 50 U/L (15-37) (AST/SGOT) Total Creatine Kinase 990 U/L (39-308) Creatine Kinase MB 24.4 NG/ML (0.5-3.6) Albumin 3.2 GM/DL (3.4-5.0) Imaging Last Impressions Myocardial Perfusion Scan Nuc Med 10/15/16 0000 Signed Impressions: Service Date/Time: Saturday, October 15, 2016 17:09 - CONCLUSION: 1. Fixed defect involving the inferior wall suggesting RCA infarct. Clinical correlation is recommended. 2. Inferior wall hypokinesis with left ventricular ejection fraction equaling 41%%. RISK CATEGORY: Intermediate risk (1 - 3%% annual mortality rate) Ifeanyi Cortés MD Carotid Artery Ultrasound 10/15/16 0000 Signed Impressions: Service Date/Time: Saturday, October 15, 2016 10:21 - CONCLUSION: Mild atherosclerotic plaquing of both carotid systems. No high-grade or hemodynamically significant stenosis.. Darren Velázquez MD Head CT 10/14/16 1509 Signed Impressions: Service Date/Time: Friday, October 14, 2016 16:58 - CONCLUSION: 1. No acute findings. Stable remote infarct left frontal lobe. Chip Guerrero MD Chest X-Ray 10/14/16 1509 Signed Impressions: Service Date/Time: Friday, October 14, 2016 15:26 - CONCLUSION: Compensated cardiomegaly otherwise negative Board Certified Radiologist. This report was verified electronically. PE at Discharge GENERAL: Well-nourished, well-developed male patient in [facility]. SKIN: Warm and dry. No rash. HEENT: Normocephalic. Atraumatic.Pupils equal and round. Mucous membranes pink and moist. NECK: Supple. Trachea midline. CARDIOVASCULAR: Regular rate and rhythm. S1, S2 noted. No murmur appreciated. RESPIRATORY: No accessory muscle use. Clear to auscultation. Breath sounds equal bilaterally. GASTROINTESTINAL: Abdomen soft, non-tender, nondistended. Normoactive bowel sounds x4. MUSCULOSKELETAL: No obvious deformities. Extremities without clubbing, cyanosis , or edema. NEUROLOGICAL: Awake and alert. No obvious cranial nerve deficits. Motor grossly within normal limits. 5/5 muscle strength in bilateral upper and lower extremities. Normal speech. PSYCHIATRIC: Appropriate mood and affect; insight and judgment normal. Pt update on day of discharge Says he had diarrhea 4 times. He was eating ice cream. No n/v. No fever or chills. No recent antibiotic use. Feels at his baseline. Wants to go home. Cleared by cardio for DC, discussed with Dr Cesar hemphill Hospital Course 66-year-old male with a PMH of Depression, HTN, Hyperlipidemia and Chronic Back Pain was brought to ER by EMS after being found unresponsive by . Toxic Encephalopathy secondary to Overdose: Suspected Unintentional Overdose w / Morphine. On Morphine 100mg po TID and Lortab 10mg q6h prn per records, found unresponsive by EMS w/ GCS 5, RR 8, hypotensive, s/p Narcan 0.4mg x1 w/ immediate response. Monitor Neuro Checks q4h. Encephalopathy resolved, patient AAOx4. Restart narcotic slowly with Lortab only. Unresponsive Episode: suspect secondary to overdose however need to rule out other etiologies. Head CT images reviewed, no acute findings. Echocardiogram with normal systolic function, EF 55-60%. Check carotid U/S. Check EEG. Monitor on telemetry. Consult cardiology, seen by Dr Guerrero. Recommends emma scan. Lexiscan with fixed defect, no acute abnormality. Cleared by cardiology for DC. To follow up as OP with Dr Cesar hemphill. Elevated Trop: Trop 0.09, EKG w/ no acute ischemia. Check serial cardiac enzymes. Resume Metoprolol, ASA, Statin. Possibly related to acute renal insufficiency. Patient reports he was supposed to have Nuclear Stress Test. Dr. Guerrero consult cardiology, cleared for DC to follow up as OP with PCP. Rhabdomyolysis: Improved significantly. Suspect secondary to overdose and fall. CPK 815 --> 1318. Continue IVF. Monitor serial CPK. Diarrhea: no fever, leukocytosis. Also patient was off narcotics for the past 2 days. Start Lactinex. Check C diff if not improved. To follow up as OP with PCP. DALTON: Improved/resolved. Continue PO hydration. Creatinine 1.44, previously 0.86 on 08/21/16. U/a negative. IVF. Leukocytosis, resolved. WBC 14.5 on admission afebrile. NO signs of infection. CXR w/ no acute findings, images reviewed by me. U/a negative. Blood cultures collected. Unclear source of infection. S/p Vanc/Zosyn in ER. Will continue w/ IV Abx. DVT Prophylaxis: SCD/Teds. Discharged in stable condition, to follow up as OP with PCP and consultants. To have EEG as OP and follow up with PCP and neuro if need. Pt Condition on Discharge: Stable Discharge Disposition: Discharge Home Discharge Time: > 30 minutes Discharge Instructions DIET: Follow Instructions for: Heart Healthy Diet Activities you can perform: Regular-No Restrictions Follow up Referrals: Cardiology - 1 Week with Black Delgado MD PCP Follow-up - 2-3 Days with Sunday Forrester MD New Medications: Lactobacillus Acidophilus (Lactinex) 1 Chew 1 TAB CHEW DAILY Nutritional Supplement #20 Ref 0 TAB Continued Medications: Aspirin DR (Aspirin Adult Low Strength) 81 Mg Tabdr 81 MG PO DAILY CAD TAB Docusate Sodium (Stool Softener) 100 Mg Cap 100 MG PO DAILY PRN CONSTIPATION Hydrocodone-Acetaminophen (Hydrocodone-Acetaminophen) 10-325 mg Tab 1 TAB PO Q4HR PRN PAIN #60 Ref 0 TAB Lisinopril (Lisinopril) 20 Mg Tab 20 MG PO DAILY #30 Ref 0 TAB Lovastatin (Lovastatin) 40 Mg Tab 40 MG PO HS Cholesterol Management #30 Ref 0 TAB Metoprolol Tartrate (Metoprolol Tartrate) 25 Mg Tab 12.5 MG PO Q12HR cad Days 30 Ref 0 TAB Morphine Sulfate CR (Morphine Sulfate CR) 100 Mg Tab 100 MG PO TID Paroxetine (Paroxetine) 40 Mg Tab 40 MG PO DAILY #30 Ref 0 TAB Zolpidem (Ambien) 5 Mg Tab 5 MG PO HS PRN INSOMNIA Ref 0 TAB Alexandra Collins MD Oct 16, 2016 09:57
[2016-10-16] MEDS ORDERED: LACTCHW3 CHEW (10:01)
[2016-10-16 10:10] VITALS: PULSE 88
[2016-10-16] MEDS ORDERED: LACTOBACILLUS ACIDOPHILUS TAB PO ONE (11:00)
[2016-10-16] MEDS ORDERED: LACTOBACILLUS ACIDOPHILUS TAB PO SCH (21:00)
== END 2016-10-16 10:40 | disposition home or self-care (01) ==
LOC: NEPE 14:02 → NEDA 19:24 → NEPGCP 22:54
PROVIDERS: ADMIT Hospitalist; ATTEND Hospitalist
DX: T40.691A Poisoning by other narcotics, accidental (unintentional), initial encounter (principal); G93.49 Other encephalopathy; N17.9 Acute kidney failure, unspecified; R74.8 Abnormal levels of other serum enzymes; D72.829 Elevated white blood cell count, unspecified; E78.00 Pure hypercholesterolemia, unspecified; E78.5 Hyperlipidemia, unspecified; I50.32 Chronic diastolic (congestive) heart failure; I25.2 Old myocardial infarction; I11.0 Hypertensive heart disease with heart failure; G89.29 Other chronic pain; M54.5 Low back pain; M62.82 Rhabdomyolysis; R19.7 Diarrhea, unspecified; Z78.1 Physical restraint status; Z79.891 Long term (current) use of opiate analgesic; Z87.891 Personal history of nicotine dependence; R40.2430 Glasgow coma scale score 3-8, unspecified time; I95.9 Hypotension, unspecified; Y92.019 Unspecified place in single-family (private) house as the place of occurrence of the external cause
CPT/HCPCS: 70450; 71010; 78452; 80053; 80307; 81001; 82550; 82552; 83605; 84484; 85025; 85610; 85730; 87040; 93005; 93017; 93880; 96360; 96361; 99285; A9502; G0378; J0456; J0696; J2543; J2785; J3370; J7030; J7050